=== PATIENT | female | born 1960 | race Caucasian/White ===

== ENCOUNTER 2024-12-13 13:15 | Inpatient (IN) | payer OTHER, SELFPAY ==
[2024-12-13] VITALS (41 sets, daily range): BP systolic 89–123; BP diastolic 50–81; PULSE 95–122; RESP 15–37; TEMP 36.3–37.3; O2SAT 93–99; BMI 25.0
--- NOTE | 2024-12-13 | PATH_ITS ---
[facility] Accession Number: [id number] No. of containers..01 Tissue . 01 Material submitted: . abdomen - INTRA ABDOMINAL OBJECT . 01 Diagnosis: SOFT TISSUE, INTRA-ABDOMINAL, BIOPSY: Nodular fragment of fibrous tissue with central necrosis and calcification. . Note: The changes could be secondary to prior local trauma and, in the proper clinical setting, could represent a necrotic traumatized lipoma. Clinicopathological correlation is advised. MRV 12/19/2024 1724 Local . 01 Comment: Evaluation is limited by the degree of tissue necrosis. . 01 Electronically signed: . Jeniffer Valencia MD, Dermatopathologist NPI- [id number] . 01 Gross description: . Received in formalin with two identifiers and intra-abdominal object, is a willis, smooth, rubbery soft tissue fragment 2.3 x 1.5 x 0.9 cm. Inked blue and sectioned to reveal an orange-willis to brown, gritty, friable cut surface. The specimen is submitted entirely in cassettes A1-A2. ([id number]) /FIDEL 12/15/2024 1045 Local . 01 Pathologist provided ICD-10: R23.9 . 01 CPT . 048676 Specimen Comment: A courtesy copy of this report has been sent to [phone] Performed at: [address] [facility] [address], [place], [place] [id number] MD Stevie Velasquez MD Phone: [phone]
--- NOTE | 2024-12-13 13:27 | EKG_ITS ---
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
[2024-12-13 13:43] LABS: Hematocrit 40.4 % (36-46); Hemoglobin 14.5 g/dL (12.0-16.0); Mean Corpuscular HGB Conc 35.8 % (30-36); Mean Corpuscular Hemoglobin 39.4 PG (26-34); Mean Corpuscular Volume 110.1 fL (80-100); Platelet Count 100 X10^3/uL (150-400)
[2024-12-13 13:46] LABS: Add Manual Diff / Slide Review YES
[2024-12-13 14:11] LABS: Band Neutrophils Percent 9.0 % (3-7); Lymphocytes Percent Manual 10.0 % (25-45); Metamyelocytes Percent 3.0 % (-0); Monocytes Percent Manual 11.0 % (2-11); Neutrophils Absolute Manual 3648 /uL (3000-5900); Segmented Neutrophils Percent 67.0 % (38-70); Total Cells Counted 100
[2024-12-13 14:12] LABS: Macrocytosis 2+
[2024-12-13 14:20] LABS: Lactate (Lactic Acid) 3.6 mmol/L (0.7-2.1)
[2024-12-13 15:08] LABS: Ethanol (ETOH) < 10 mg/dL (<10)
[2024-12-13 15:13] LABS: Alanine Aminotransferase 36 IU/L (<35); Albumin 2.7 g/dL (3.5-5.0); Albumin Globulin Ratio 1.0 (1.0-2.8); Alkaline Phosphatase 94 U/L (38-126); Blood Urea Nitrogen 44 mg/dL (7-17); Calcium 8.7 mg/dL (8.4-10.2); Carbon Dioxide 21 mmol/L (22-32); Chloride 94 mmol/L (98-107); Estimated Glomerular Filt Rate 37 mL/min (>60); Globulin 2.7 g/dL (1.7-4.1); Glucose 92 mg/dL (70-99); HEMOLYSIS 25 (0-50); Lipase 111 U/L (23-300); Potassium 4.3 mmol/L (3.4-5.1); Sodium 128 mmol/L (137-145); Total Protein 5.4 g/dL (6.3-8.2)
--- NOTE | 2024-12-13 15:32 | DI.CT.S_ITS ---
PROCEDURE: CT ABDOMEN PELVIS W CON INDICATIONS: probable appendicitis or perforated tic, RLQ pain, rebound TECHNIQUE: After the administration of intravenous contrast, axial sections acquired from the lung bases to the pubic symphysis. Coronal and sagittal reformats were performed. For radiation dose reduction, the following was used: automated exposure control, adjustment of mA and/or kV according to patient size. COMPARISON: None. FINDINGS: Image quality: Diagnostic. Lower Chest: Small right pleural effusion with right basilar dependent atelectasis. Mild left basilar atelectasis is also noted. Heart size is normal, no pericardial effusion. Mild fluid distended distal esophageal lumen is seen with mild esophageal wall thickening and small hiatal hernia. ABDOMEN: Liver: Severe hepatic steatosis with lobulated liver contour, no gross solid appearing hepatic lesion. Gallbladder: Distended gallbladder. Small calcified stone is seen. No gallbladder wall thickening. Biliary ducts: No biliary dilation. Pancreas: No ductal dilation. Spleen: Size is within normal limits. Adrenal Glands: No adrenal nodules. Kidneys and Ureters: No hydronephrosis. No solid mass. No complex renal cystic lesion which requires follow up. Stomach and Bowel: Significant distal gastric wall thickening and wall thickening involving proximal to mid duodenum with focal area of possible wall defect and extra luminal air involving proximal duodenum anterior wall series 2, image 48 concerning for perforated ulcer. No significant small bowel or colon wall thickening. No definite CT evidence of acute diverticulitis. No discrete drainable abscess collection. Peritoneum: Large amount of free fluid is seen in abdomen and pelvis. Moderate amount of free air is also seen most notably in non dependent portion of upper to mid abdomen. Ventral Wall: No significant ventral hernia. Abdominal Nodes: No retroperitoneal or mesenteric adenopathy by size criteria. Vessels: Aorta and inferior vena cava are normal in size. PELVIS: Pelvic Organs: Unremarkable. Bladder: No bladder wall thickening, accounting for underdistention. Pelvic Nodes: No enlarged lymph nodes. Miscellaneous: No inguinal hernias are seen. Bones: No aggressive osseous abnormality. IMPRESSION: 1. Large amount of abdominal and pelvic free fluid with significant free air as described above. 2. Significant distal gastric wall thickening and wall thickening involving proximal to mid duodenum with anterior proximal duodenal wall defect and adjacent air concerning for perforated duodenal ulcer. 3. No significant small bowel or colon wall thickening. Distal esophageal wall thickening concerning for mild esophagitis. 4. Severe hepatic steatosis, no discrete hepatic lesion. 5. Cholelithiasis without CT evidence of acute cholecystitis. 6. Small amount of right pleural effusion and right basilar atelectasis. Dictated by: Reuben Humphreys M.D. on 12/13/2024 at 16:08 Approved by: Reuben Humphreys M.D. on 12/13/2024 at 16:14
[2024-12-13] MEDS: PIPERACILLIN/TAZO 4.5 GM in SODIUM CHLORIDE 0.9% 100 ML IV (15:35)
--- NOTE | 2024-12-13 15:36 | PC.NURSE ---
Remaining fluids from medic bag given per MD verbal order. 1000cc infused
[2024-12-13 15:49] LABS: Reflexed Lactate in 2 Hours Y
[2024-12-13 16:38] LABS: Lactate 2HR (Lactic Acid Rflx) 1.9 mmol/L (0.7-2.1)
--- NOTE | 2024-12-13 17:58 | P.HP_ITS ---
History of Present Illness History of Present Illness Date Patient Seen: 12/13/24 Time Patient Seen: 17:58 Chief complaint: Abdominal pain Narrative: Arianna is a 64-year-old woman who presented to the emergency department due to abdominal pain since last . She has had bowel movements since then. A CT scan showed diffuse free fluid and free air and thickening of the distal stomach and duodenum. She has never had any abdominal surgery before. [facility] Social History household members: family Smoking Status: Never smoker Meds Home Medications and Allergies Allergies Allergy/AdvReac Type Severity Reaction Status Date / Time No Known Allergies Allergy Uncoded 08/26/17 12:58 Exam Vital Signs (past 8 hours): - 12/13/24 13:15 12/13/24 13:17 12/13/24 13:18 Temperature Pulse Rate 121 H 122 H Respiratory Rate 15 Blood Pressure 99/64 99/64 Pulse Oximetry 97 98 Oxygen Delivery Method Room Air 12/13/24 13:30 12/13/24 13:30 12/13/24 13:35 Temperature Pulse Rate 115 H Respiratory Rate Blood Pressure 97/66 89/64 L Pulse Oximetry 96 Oxygen Delivery Method 12/13/24 13:35 12/13/24 13:40 12/13/24 13:40 Temperature Pulse Rate 112 H 111 H Respiratory Rate 24 Blood Pressure 91/65 Pulse Oximetry 94 94 Oxygen Delivery Method 12/13/24 13:45 12/13/24 13:45 12/13/24 13:50 Temperature Pulse Rate 113 H Respiratory Rate 24 Blood Pressure 91/63 95/62 Pulse Oximetry 96 Oxygen Delivery Method 12/13/24 13:50 12/13/24 13:55 12/13/24 13:55 Temperature Pulse Rate 113 H 110 H Respiratory Rate 22 Blood Pressure 96/63 Pulse Oximetry 95 96 Oxygen Delivery Method 12/13/24 14:00 12/13/24 14:00 12/13/24 14:06 Temperature Pulse Rate 104 H 103 H Respiratory Rate 25 H Blood Pressure 96/57 L Pulse Oximetry 97 98 Oxygen Delivery Method 12/13/24 14:06 12/13/24 14:10 12/13/24 14:10 Temperature Pulse Rate 100 H Respiratory Rate 25 H Blood Pressure 98/56 L 105/64 Pulse Oximetry 99 Oxygen Delivery Method 12/13/24 14:15 12/13/24 14:15 12/13/24 14:20 Temperature Pulse Rate 101 H Respiratory Rate 23 Blood Pressure 111/58 L 107/56 L Pulse Oximetry 99 Oxygen Delivery Method 12/13/24 14:20 12/13/24 14:30 12/13/24 15:00 Temperature Pulse Rate 100 H 104 H 103 H Respiratory Rate 22 26 H Blood Pressure Pulse Oximetry 99 99 Oxygen Delivery Method 12/13/24 15:30 12/13/24 15:49 12/13/24 15:57 Temperature Pulse Rate 100 H 109 H Respiratory Rate 26 H 25 H Blood Pressure 123/58 L Pulse Oximetry 96 98 Oxygen Delivery Method 12/13/24 15:57 12/13/24 16:00 12/13/24 16:02 Temperature Pulse Rate 108 H 102 H Respiratory Rate 27 H Blood Pressure 107/53 L Pulse Oximetry 97 Oxygen Delivery Method 12/13/24 16:02 12/13/24 16:10 12/13/24 16:10 Temperature Pulse Rate 101 H 98 H Respiratory Rate 22 Blood Pressure 97/50 L Pulse Oximetry 96 95 Oxygen Delivery Method 12/13/24 16:20 12/13/24 16:20 12/13/24 16:30 Temperature Pulse Rate 99 H Respiratory Rate 25 H Blood Pressure 95/51 L 90/54 L Pulse Oximetry 96 Oxygen Delivery Method 12/13/24 16:30 12/13/24 16:40 12/13/24 16:40 Temperature Pulse Rate 95 H 109 H Respiratory Rate Blood Pressure 92/55 L Pulse Oximetry 96 96 Oxygen Delivery Method 12/13/24 16:50 12/13/24 16:50 12/13/24 17:00 Temperature Pulse Rate 107 H Respiratory Rate 28 H Blood Pressure 92/53 L 90/54 L Pulse Oximetry 95 Oxygen Delivery Method 12/13/24 17:00 12/13/24 17:20 12/13/24 17:20 Temperature 97.9 F Pulse Rate 99 H 111 H Respiratory Rate 27 H 30 H Blood Pressure 89/52 L Pulse Oximetry 95 97 Oxygen Delivery Method 12/13/24 17:30 12/13/24 17:30 Temperature Pulse Rate 105 H Respiratory Rate Blood Pressure 98/56 L Pulse Oximetry 97 Oxygen Delivery Method Oxygen Delivery Method Room Air Narrative Exam Narrative: Diffuse peritonitis Objective Labs 12/13/24 13:25 12/13/24 14:35 Labs: Laboratory Results - last 24 hr 12/13/24 12/13/24 12/13/24 13:25 14:35 16:15 WBC 4.8 RBC 3.67 L Hgb 14.5 Hct 40.4 MCV 110.1 H MCH 39.4 H MCHC 35.8 RDW 12.8 Plt Count 100 L Neut % (Auto) Not Reportable Lymph % (Auto) Not Reportable Piatt % (Auto) Not Reportable Eos % (Auto) Not Reportable Baso % (Auto) Not Reportable Lymph # (Auto) Not Reportable Piatt # (Auto) Not Reportable Baso # (Auto) Not Reportable Total Counted 100 Seg Neutrophils % 67.0 Band Neutrophils % 9.0 H Lymphocytes % (Manual) 10.0 L Monocytes % (Manual) 11.0 Metamyelocytes % 3.0 H Neutrophils # (Manual) 3648 RBC Morphology See below Macrocytosis 2+ H Sodium 128 L Potassium 4.3 Chloride 94 L Carbon Dioxide 21 L BUN 44 H Creatinine 1.57 H Estimated GFR 37 L BUN/Creatinine Ratio 28.0 H Glucose 92 Lactate 3.6 H 1.9 Calcium 8.7 Total Bilirubin 2.8 H AST 49 H ALT 36 H Alkaline Phosphatase 94 Total Protein 5.4 L Albumin 2.7 L Globulin 2.7 Albumin/Globulin Ratio 1.0 Lipase 111 Ethyl Alcohol < 10 Assessment & Plan Assessment and plan (1) Perforated viscus: Status: Acute Plan I explained to Arianna that she has free air and free fluid which indicates that she has a perforation in her GI tract somewhere. This could be from a perforated gastric or duodenal ulcer or a perforation in her colon or small bowel. I explained that she needs to have an exploratory laparotomy. If she has a perforation of the her colon she may need a diverting colostomy. If it is an ulcer she would likely need a Sonu patch. She would like to proceed. Time-Based Coding :: [TOTAL MINUTES] spent with patient and on the chart (including review of chart, obtaining history, exam, reviewing outside data, placing orders, documenting exam and treatment plan, and counseling patient) on [DATE]. PROFEE Team Physician Document charge(s): No
--- NOTE | 2024-12-13 18:03 | CM.IDA ---
Initial DCP Assessment Note Patient is 64 y/o female presents to ED due to concern for Abdominal pain, started last week. Patient's daughter encouraged patient to come to ED via EMS. It is reported that patient has been drinking listerine daily, has not seen PCP in a few years and patient presents as withdrawn and not caring for self. No current PCP, Patient has [facility] insurance. INSOLVENCY CONSULTANT enters room to meet with patient, present in room is patient's daughter Jeniffer. Patient and daughter reside together in [place]. Patient presents as A/Ox4 with flat affect. Patient endorses that she has been experiencing abdominal pain for the last week. Patient endorses limited mobility due to pain, patient denies any current DME. It is reported that patient is mostly independent with ADLs but there is concern that patient is not eating or drinking fluids appropriately. Patient does not drive and receives rides from daughter. Daughter reports that patient fell in April and received lift assist but did not want to come to the ED. Patient's daughter endorses concern that she will be out of town on Thursday and is concerned for patient returning home alone upon d/c. Daughter endorses preference for SNF rehab. Daughter states she needs to get patient a new bed because her current bed is too elevated for patient. Daughter endorses plan to work with a electrophysiology nurse practitioner to set up DPOA paperwork. INSOLVENCY CONSULTANT speaks with patient privately about listerine use. Patient endorses that she drinks a cup daily and states it calms me down, patient states that has been ingesting it for about a year, patient denies SI and denies intent to harm self. Upon CT scan results it is identified that patient has significant internal damage and perferated ulcer. INSOLVENCY CONSULTANT discusses concern that listerine use is causing harm to her body. Patient presents with flat affect and indicates understanding of this and identifies that she should stop drinking it. Patient's daughter endorses concern that patient has been withdrawn since the loss of her spouse 8 years ago and the loss of her mother in law who was more like a mother to her about 4 years ago. Patient denies concern for depression. Patient states she likes being alone and does not enjoy engaging with people. INSOLVENCY CONSULTANT offered to set up PCP appt for patient and patient declined at this time. INSOLVENCY CONSULTANT provided patient and daughter with list of DME resources. Patient was admitted by Dr. Issa for exploratory lap. Disposition pending at this time, patient going into surgery tonight. Plan: DCP to f/u with POC post surgery, patient would benefit from PT and Data Entry Email Processor consult, Patient in need of new PCP. GHASSAN De Guzman Discharge Planning/Care Management CM Discharge Assessment Start: 12/13/24 17:44 Freq: Status: Active Protocol: Document 12/13/24 18:00 LN (Rec: 12/13/24 18:03 LN [id number]) Discharge Planning Assessment Assigned Discharge GHASSAN Cameron Bending Frame Operator DPOA/Assigned Jeniffer/ Daughter Designee Name Contact Information [phone] Advance Directives? No Advance Directives No on File History Provided By Patient,Family Member Has Patient been No admitted in last 30 days? Prior Living House Arrangements Household Members children Type of Relies on Others transporation used prior to admit Needs Assistance Meal Prep,Home Chores / Shopping With Comment No DME used at this time but patient would benefit from DME, INSOLVENCY CONSULTANT provided DME resource list. Comment Patient's daughter has preference for SNF rehab, patient may be open to this. Patient does not have current PCP regarding HH. Review Status In Process
[2024-12-13] MEDS: LACTATED RINGERS 1,000 ML 42 ML IV ×3 (18:07→20:56)
[2024-12-13] MEDS: ACETAMINOPHEN IV 1,000 MG/100 ML VIAL 400 MG IV (18:37)
--- NOTE | 2024-12-13 18:55 | SUR.OPER ---
Supine on padded OR bed, head on pillow, arms secured on padded arm boards at <90 degrees abduction, legs uncrossed, safety belt at thigh.
[2024-12-13] MEDS: BUPIVACAINE 0.25% (PF) VIAL 30 ML INJ (19:03)
[2024-12-13] MEDS: BUPIVACAINE LIPOSOME 266 MG/20 ML VIAL INJ (19:42)
--- NOTE | 2024-12-13 20:09 | PM.OP.1 ---
Operative Date/Time/Diagnoses Date of procedure: 12/13/24 Time of procedure: 20:09 Pre-op diagnosis: Perforated viscus Post-op diagnosis: other (Perforated duodenal ulcer) Procedure & Clinicians Procedure: Exploratory laparotomy Peritoneal lavage Omental patch of perforated duodenal ulcer Same procedure(s) as scheduled: Yes Surgeon: Golden Issa Click Yes if Unassisted: Yes Anesthesia Type: General Operative Notes Findings: 6 mm perforation of the anterior first portion of the duodenum Applied: none Estimated Blood Loss (mL): 25 Procedure in detail: The patient is a 64-year-old woman who presented to the emergency department with a abdominal pain and was found to have free air and fluid. She was consented for an exploratory laparotomy. She had received Zosyn in the emergency department. The patient was brought to the operating room and general endotracheal anesthesia was induced. A Burnett catheter was placed. The abdomen was prepped and draped in the usual fashion. A time-out was performed. A midline incision was created from 3 finger breaths below the umbilicus to the xiphoid process. Voluminous dark bile was encountered upon entry to the abdomen and suctioned with a pool sucker. Exploration demonstrated a 6 mm round perforation along the anterior wall of the first portion of the duodenum. The LigaSure was used to create a omental tongue that would easily reach the ulcer. Two 3-0 silk sutures were placed in the healthy tissue alongside the perforation and tied over the tongue of omentum creating an omental patch. Next, two 19 round Reggie drains were brought in through separate lateral abdominal stab incisions and laid across the omental patch. Each drain was secured to the skin with a single 2-0 nylon stitch. We then irrigated the abdominal cavity with no less than 5 L of warm saline and suctioned the irrigant out until everything was clean. In the process of exploring the pelvis by hand to ensure there were no remaining pockets of bilious fluid 3-4 cm ovoid free-floating mass was discovered. This was sent as ?peritoneal object ?. The patient was noted to have slow diffuse oozing from the lumbar incisions so platelets were requested from [place] and FFP was ordered to be administered when available. We then injected some Exparel into the fascia and closed the fascia with a running 0 PDS suture reinforced by multiple interrupted 0 Vicryl internal retention sutures. The skin was closed with víctor. Dressings were applied. EBL: 25 mL Specimen: Intra-abdominal object Complications: none Post-operative Condition: stable Disposition: PACU
--- NOTE | 2024-12-13 20:32 | PC.NURSE ---
Unable to scan FFP due to emergency release of products.
[2024-12-13 21:01] LABS: INR 1.5 (0.9-1.3); Prothrombin Time 17.3 SECONDS (9.4-12.5)
--- NOTE | 2024-12-13 21:17 | PM.PN.EICU ---
Subjective Subjective IF CAMERA ACTIVATED, patient seen via real-time interactive audiovisual communication: Camera activated (Alert, oriented, no distress. On room air. ) Consent obtained for tele-psychiatry adult physician care: Yes Patient Location: ICU Provider location (State): [place] Other participants/roles: Patient, bedside RNs Interval history: Arianna is a 64-year-old woman who presented to the emergency department due to abdominal pain since last . She has had bowel movements since then. A CT scan showed diffuse free fluid and free air and thickening of the distal stomach and duodenum. Was taken to OR where she was found to have perforated duodenal ulcer. Underwent exploratory laparotomy, peritoneal lavage, and omental patch of perforated duodenal ulcer. Extubated in PACU. Arrives to ICU extubated and on room air. 2 ANTOINETTE drains,midline incision. Ms. Rodríguez states she is not on any home medications. Denies any heart or lung problems. States she does not smoke but does drink about a cup of listerine per day. At this time, no chest pain, no shortness of breath. Pain is under control. Requesting ice chips. Objective Imaging CT scan - abdomen: Radiologist's impression: IMPRESSION: 1. Large amount of abdominal and pelvic free fluid with significant free air as described above. 2. Significant distal gastric wall thickening and wall thickening involving proximal to mid duodenum with anterior proximal duodenal wall defect and adjacent air concerning for perforated duodenal ulcer. 3. No significant small bowel or colon wall thickening. Distal esophageal wall thickening concerning for mild esophagitis. 4. Severe hepatic steatosis, no discrete hepatic lesion. 5. Cholelithiasis without CT evidence of acute cholecystitis. 6. Small amount of right pleural effusion and right basilar atelectasis. Labs 12/13/24 13:25 12/13/24 14:35 Labs: Laboratory Results - last 24 hr 12/13/24 12/13/24 12/13/24 13:25 14:35 16:15 WBC 4.8 RBC 3.67 L Hgb 14.5 Hct 40.4 MCV 110.1 H MCH 39.4 H MCHC 35.8 RDW 12.8 Plt Count 100 L Neut % (Auto) Not Reportable Lymph % (Auto) Not Reportable [place] % (Auto) Not Reportable Eos % (Auto) Not Reportable Baso % (Auto) Not Reportable Lymph # (Auto) Not Reportable [place] # (Auto) Not Reportable Baso # (Auto) Not Reportable Total Counted 100 Seg Neutrophils % 67.0 Band Neutrophils % 9.0 H Lymphocytes % (Manual) 10.0 L Monocytes % (Manual) 11.0 Metamyelocytes % 3.0 H Neutrophils # (Manual) 3648 RBC Morphology See below Macrocytosis 2+ H PT INR Sodium 128 L Potassium 4.3 Chloride 94 L Carbon Dioxide 21 L BUN 44 H Creatinine 1.57 H Estimated GFR 37 L BUN/Creatinine Ratio 28.0 H Glucose 92 Lactate 3.6 H 1.9 Calcium 8.7 Total Bilirubin 2.8 H AST 49 H ALT 36 H Alkaline Phosphatase 94 Total Protein 5.4 L Albumin 2.7 L Globulin 2.7 Albumin/Globulin Ratio 1.0 Lipase 111 Ethyl Alcohol < 10 Blood Type Antibody Screen 12/13/24 12/13/24 19:14 20:35 WBC RBC Hgb Hct MCV MCH MCHC RDW Plt Count Neut % (Auto) Lymph % (Auto) [place] % (Auto) Eos % (Auto) Baso % (Auto) Lymph # (Auto) [place] # (Auto) Baso # (Auto) Total Counted Seg Neutrophils % Band Neutrophils % Lymphocytes % (Manual) Monocytes % (Manual) Metamyelocytes % Neutrophils # (Manual) RBC Morphology Macrocytosis PT 17.3 H INR 1.5 H Sodium Potassium Chloride Carbon Dioxide BUN Creatinine Estimated GFR BUN/Creatinine Ratio Glucose Lactate Calcium Total Bilirubin AST ALT Alkaline Phosphatase Total Protein Albumin Globulin Albumin/Globulin Ratio Lipase Ethyl Alcohol Blood Type B Negative Antibody Screen Negative Exam Vital Signs (past 8 hours): - 12/13/24 13:18 12/13/24 13:30 12/13/24 13:30 Temperature Pulse Rate 122 H 115 H Respiratory Rate Blood Pressure 97/66 Pulse Oximetry 98 96 Oxygen Delivery Method 12/13/24 13:35 12/13/24 13:35 12/13/24 13:40 Temperature Pulse Rate 112 H Respiratory Rate 24 Blood Pressure 89/64 L 91/65 Pulse Oximetry 94 Oxygen Delivery Method 12/13/24 13:40 12/13/24 13:45 12/13/24 13:45 Temperature Pulse Rate 111 H 113 H Respiratory Rate 24 Blood Pressure 91/63 Pulse Oximetry 94 96 Oxygen Delivery Method 12/13/24 13:50 12/13/24 13:50 12/13/24 13:55 Temperature Pulse Rate 113 H Respiratory Rate Blood Pressure 95/62 96/63 Pulse Oximetry 95 Oxygen Delivery Method 12/13/24 13:55 12/13/24 14:00 12/13/24 14:00 Temperature Pulse Rate 110 H 104 H Respiratory Rate 22 Blood Pressure 96/57 L Pulse Oximetry 96 97 Oxygen Delivery Method 12/13/24 14:06 12/13/24 14:06 12/13/24 14:10 Temperature Pulse Rate 103 H Respiratory Rate 25 H Blood Pressure 98/56 L 105/64 Pulse Oximetry 98 Oxygen Delivery Method 12/13/24 14:10 12/13/24 14:15 12/13/24 14:15 Temperature Pulse Rate 100 H 101 H Respiratory Rate 25 H 23 Blood Pressure 111/58 L Pulse Oximetry 99 99 Oxygen Delivery Method 12/13/24 14:20 12/13/24 14:20 12/13/24 14:30 Temperature Pulse Rate 100 H 104 H Respiratory Rate 22 Blood Pressure 107/56 L Pulse Oximetry 99 Oxygen Delivery Method 12/13/24 15:00 12/13/24 15:30 12/13/24 15:49 Temperature Pulse Rate 103 H 100 H 109 H Respiratory Rate 26 H 26 H 25 H Blood Pressure Pulse Oximetry 99 96 98 Oxygen Delivery Method 12/13/24 15:57 12/13/24 15:57 12/13/24 16:00 Temperature Pulse Rate 108 H 102 H Respiratory Rate 27 H Blood Pressure 123/58 L Pulse Oximetry 97 Oxygen Delivery Method 12/13/24 16:02 12/13/24 16:02 12/13/24 16:10 Temperature Pulse Rate 101 H 98 H Respiratory Rate 22 Blood Pressure 107/53 L Pulse Oximetry 96 95 Oxygen Delivery Method 12/13/24 16:10 12/13/24 16:20 12/13/24 16:20 Temperature Pulse Rate 99 H Respiratory Rate 25 H Blood Pressure 97/50 L 95/51 L Pulse Oximetry 96 Oxygen Delivery Method 12/13/24 16:30 12/13/24 16:30 12/13/24 16:40 Temperature Pulse Rate 95 H Respiratory Rate Blood Pressure 90/54 L 92/55 L Pulse Oximetry 96 Oxygen Delivery Method 12/13/24 16:40 12/13/24 16:50 12/13/24 16:50 Temperature Pulse Rate 109 H 107 H Respiratory Rate 28 H Blood Pressure 92/53 L Pulse Oximetry 96 95 Oxygen Delivery Method 12/13/24 17:00 12/13/24 17:00 12/13/24 17:20 Temperature 97.9 F Pulse Rate 99 H Respiratory Rate 27 H Blood Pressure 90/54 L 89/52 L Pulse Oximetry 95 Oxygen Delivery Method 12/13/24 17:20 12/13/24 17:30 12/13/24 17:30 Temperature Pulse Rate 111 H 105 H Respiratory Rate 30 H Blood Pressure 98/56 L Pulse Oximetry 97 97 Oxygen Delivery Method 12/13/24 18:07 12/13/24 20:15 12/13/24 20:24 Temperature 99.1 F 98 F Pulse Rate 105 H 105 H 101 H Respiratory Rate 20 25 H 33 H Blood Pressure 95/62 120/56 L 111/59 L Pulse Oximetry 97 93 95 Oxygen Delivery Method Room Air Room Air Room Air 12/13/24 20:30 12/13/24 20:31 12/13/24 20:35 Temperature 98 F 98.1 F Pulse Rate 99 H 100 H 100 H Respiratory Rate 37 H 33 H 35 H Blood Pressure 102/52 L 102/52 L 111/56 L Pulse Oximetry 94 Oxygen Delivery Method Room Air 12/13/24 20:40 12/13/24 20:45 12/13/24 20:51 Temperature 97.3 F L 97.8 F Pulse Rate 101 H 105 H 98 H Respiratory Rate 34 H 21 30 H Blood Pressure 110/57 L 112/64 109/60 Pulse Oximetry 98 Oxygen Delivery Method Room Air 12/13/24 20:58 Temperature Pulse Rate 96 H Respiratory Rate 18 Blood Pressure 118/81 Pulse Oximetry 98 Oxygen Delivery Method Room Air Oxygen Delivery Method Room Air Assessment & Plan Assessment & Plan narrative: 1. Perforated duodenal uler ---> s/p OR, ex lap with omental patch ---> Extubated in PACU ---> Continue zosyn 2. Drinks Listerine daily ---> Watch renal function, acid/base status ---> Given no significant metabolic acidosis, likely not toxic levels of flouride. DVTP - SCDs GIP - Protonix Diet - NPO Time-Based Coding :: [35] spent with patient and on the chart (including review of chart, obtaining history, exam, reviewing outside data, placing orders, documenting exam and treatment plan, and counseling patient) on [12/13/24].
--- NOTE | 2024-12-13 22:07 | ED.ABDPAIN ---
HPI - Abdominal Pain General Chief Complaint: Abdominal Pain Stated Complaint: Abdominal pain Time Seen by Provider: 12/13/24 14:16 Source: patient and EMS Mode of arrival: EMS History of Present Illness HPI narrative: This 64 yo female presents with the complaint of increasing lower abdominal pain over several hours. Said was out gardening and when came in , felt sudden pain in abdomen and didn't let up. Any movement bothered pain . Daughter brought patient in . Claims has been a long time since patient seen by a physician Not much PMH known. Related Data Home Medications ?Medication ?Instructions ?Recorded ?Confirmed acetaminophen 500 mg capsule 500 mg PO Q6H PRN pain 12/13/24 12/13/24 multivitamin (Daily Multi-Vitamin 1 tab PO DAILY 12/13/24 12/13/24 tablet) Allergies Allergy/AdvReac Type Severity Reaction Status Date / Time No Known Allergies Allergy Uncoded 08/26/17 12:58 Review of Systems Constitutional Constitutional: Reports weakness Comments: Malaise due to lower abdominal pain with diffuse guarding and rebound. ENT Ears, Nose, Mouth, and Throat: Reports as per HPI Cardiovascular Cardiovascular: Reports system reviewed and no additional complaints, except as documented Respiratory Respiratory: Reports system reviewed and no additional complaints, except as documented Gastrointestinal Comments: Diffuse lower abdominal pain .diffuse percussion tenderness and rebound. Hypoactive BS Musculoskeletal Comments: NROM of upper extremities.Guarded ROM of lower extremities due to tenderness created in abdomen Neurologic Neurologic: Reports weakness Patient History Social History household members: children alcohol intake: current Smoking Status: Never smoker Exam Initial Vital Signs Initial Vital Signs: Vital Signs Pulse Rate 121 H 12/13/24 13:15 Respiratory Rate 15 12/13/24 13:15 Blood Pressure 99/64 12/13/24 13:15 Pulse Oximetry 97 12/13/24 13:15 Oxygen Delivery Method Room Air 12/13/24 13:15 Const General: cooperative Nutritional Appearance: overweight Limitations: altered mental status Other: lethargic but can answer questions. HENMT HENMT Other: pale, mouth dry. Eyes Pupils: PERRL Neck Neck: full ROM Other: no tenderness Resp Other: Clear, slightly rapid shallow BS Cardio Rate: tachycardic Rhythm: regular rhythm GI Other: Diffuse RLQ tenderness with percussion tenderness and diffuse rebound , hypoactive BS. Neuro Other: Oriented times 3, no focal defects. Generally weak. Extrem Other: Guarded ROM of lower extremities due to tenderness caused in abdomen by any movement. Course Course Course Narrative: This patient presents with diffuse pelvic tenderness with guarding and diffuse rebound and percussion tenderness. Differential includes perforated appendix,perforated tic, mesenteric adenitis. bowel obstruction Was found onCT abdomen/pelvis to have a perforated duodenal ulcer with free fluid and free air. Patient had been hypotensive on presentation with BP 99 systolic. This increased to 106 with 2 liters NS. Was given dose of Zosyn because patient has acute abdomen. Dr. Issa surgeon environmental health safety manager notified and he said they were doing 3 hiop cases today and last would end about 18:30, 2 hours from time he was consulted. Said could be later,. Thought we should send patient to some facility that could take patient to surgery sooner,. Tried [facility] but as soon as they heard we had a surgeon said no they had other bigger cases pending,. Same for whose surgeon though we should not transfer when so hypotensive, Dr. Issa ended up taking to OR from ED and will admit to surgery. Orders Ordered: ED Orders 12/13/24 13:25 Complete Blood Count AUTO DIFF Stat Lactate (Lactic Acid) Stat 12/13/24 13:27 EKG-12 Lead Stat 12/13/24 14:35 Comprehensive Metabolic Panel Stat Ethanol (ETOH) Stat Lipase Stat 12/13/24 15:32 CT abdomen pelvis w con Stat 12/13/24 15:45 Blood Culture Stat Hydrocodone Bitart/Acetaminophen (Hydrocodone/Acet 5/325 Tablet) 1 tab PO Q4H PRN PRN Reason: Pain, Moderate (4-6) Hydrocodone Bitart/Acetaminophen (Hydrocodone/Acet 5/325 Tablet) 2 tab PO Q4H PRN PRN Reason: Pain, Severe (7-10) Hydromorphone HCl (Hydromorphone Hcl 0.5 Mg/0.5 Ml Syringe) 0.5 mg IV Q2H PRN PRN Reason: Pain, Severe (7-10) Lactated Ringer's (Lactated Ringers) 1,000 mls @ 120 mls/hr IV CONT ELIESER Ibuprofen (Ibuprofen 600 Mg Tablet) 600 mg PO Q6H PRN PRN Reason: Fever/Mild Pain (1-3) Naloxone HCl (Naloxone 0.4 Mg/Ml Vial) 0.2 mg IV Q2MIN PRN PRN Reason: Opiate Reversal Pantoprazole Sodium (Pantoprazole 40 Mg Vial) 40 mg IV DAILY ELIESER Discontinued Medications Benzocaine (Benzocaine/Menthol 1 Prashanth Pkt) 1 each PO PRN PRN PRN Reason: Sore Throat Bupivacaine HCl (Bupivacaine 0.25% (Pf) Vial) 30 ml INJ NOW ONE Stop: 12/13/24 19:04 Last Admin: 12/13/24 19:03 Dose: 15 ml Documented By: Bupivacaine Liposome (Bupivacaine Liposome 266 Mg/20 Ml Vial) 266 mg INJ NOW ONE Stop: 12/13/24 19:43 Last Admin: 12/13/24 19:42 Dose: 266 mg Documented By: Hydromorphone HCl (Hydromorphone 1 Mg Inj) 0 mg IV Q5MIN PRN PRN Reason: Pain, Mild (1-3) Hydromorphone HCl (Hydromorphone 1 Mg Inj) 0 mg IV Q5MIN PRN PRN Reason: Pain, Moderate (4-6) Piperacillin Sod/Tazobactam (Sod 4.5 gm/ Sodium Chloride) 100 mls @ 200 mls/hr IV NOW ONE Stop: 12/13/24 15:08 Last Infusion: 12/13/24 17:17 Dose: Infused Documented By: Admin: 12/13/24 15:35 Dose: 200 mls/hr Documented By: RENE Sodium Chloride (Normal Saline 0.9%) 500 mls @ 1,000 mls/hr IV BOLUS PRN PRN Reason: Fluid replacement Lactated Ringer's (Lactated Ringers) 1,000 mls @ 42 mls/hr IV CONT ELIESER Last Admin: 12/13/24 20:56 Dose: 42 mls/hr Documented By: Infusion: 12/13/24 20:56 Dose: Infused Documented By: Admin: 12/13/24 19:04 Dose: 42 mls/hr Documented By: Infusion: 12/13/24 19:04 Dose: Infused Documented By: Admin: 12/13/24 18:07 Dose: 42 mls/hr Documented By: KENDRA Acetaminophen (Ofirmev) 1,000 mg in 100 mls @ 400 mls/hr IV NOW ONE Stop: 12/13/24 19:16 Last Infusion: 12/13/24 21:33 Dose: Infused Documented By: Admin: 12/13/24 18:37 Dose: 400 mls/hr Documented By: TEX Lorazepam (Lorazepam 2 Mg/Ml Inj) 0.25 mg IV NOW PRN PRN Reason: Anxiety Ondansetron HCl (Ondansetron 4 Mg/2 Ml Inj) 4 mg IV NOW PRN PRN Reason: Nausea And Vomiting Ondansetron HCl (Ondansetron 4 Mg Odt) 4 mg PO NOW PRN PRN Reason: Nausea And Vomiting Vital Signs Vital signs: Vital Signs - 8 hr 12/13/24 14:10 12/13/24 14:10 12/13/24 14:15 Temperature Pulse Rate 100 H Respiratory Rate 25 H Blood Pressure 105/64 111/58 L Pulse Oximetry 99 12/13/24 14:15 12/13/24 14:20 12/13/24 14:20 Temperature Pulse Rate 101 H 100 H Respiratory Rate 23 Blood Pressure 107/56 L Pulse Oximetry 99 99 12/13/24 14:30 12/13/24 15:00 12/13/24 15:30 Temperature Pulse Rate 104 H 103 H 100 H Respiratory Rate 22 26 H 26 H Blood Pressure Pulse Oximetry 99 96 12/13/24 15:49 12/13/24 15:57 12/13/24 15:57 Temperature Pulse Rate 109 H 108 H Respiratory Rate 25 H 27 H Blood Pressure 123/58 L Pulse Oximetry 98 12/13/24 16:00 12/13/24 16:02 12/13/24 16:02 Temperature Pulse Rate 102 H 101 H Respiratory Rate 22 Blood Pressure 107/53 L Pulse Oximetry 97 96 12/13/24 16:10 12/13/24 16:10 12/13/24 16:20 Temperature Pulse Rate 98 H 99 H Respiratory Rate 25 H Blood Pressure 97/50 L Pulse Oximetry 95 96 12/13/24 16:20 12/13/24 16:30 12/13/24 16:30 Temperature Pulse Rate 95 H Respiratory Rate Blood Pressure 95/51 L 90/54 L Pulse Oximetry 96 12/13/24 16:40 12/13/24 16:40 12/13/24 16:50 Temperature Pulse Rate 109 H 107 H Respiratory Rate 28 H Blood Pressure 92/55 L Pulse Oximetry 96 95 12/13/24 16:50 12/13/24 17:00 12/13/24 17:00 Temperature 97.9 F Pulse Rate 99 H Respiratory Rate 27 H Blood Pressure 92/53 L 90/54 L Pulse Oximetry 95 12/13/24 17:20 12/13/24 17:20 Temperature Pulse Rate 111 H Respiratory Rate 30 H Blood Pressure 89/52 L Pulse Oximetry 97 MDM - Abdominal Pain Lab Data Attestation: I reviewed the patient's lab results. Lab results narrative: lab did not reveal an elevated WBC but did reveal an elevated lactic. 12/13/24 13:25 12/13/24 14:35 Labs: Lab Results 12/13/24 12/13/24 12/13/24 Range/Units 13:25 14:35 16:15 WBC 4.8 (4.5-11.0) X10^3/uL RBC 3.67 L (4.0-5.2) X10^6/uL Hgb 14.5 (12.0-16.0) g/dL Hct 40.4 (36-46) % MCV 110.1 H (80-100) fL MCH 39.4 H (26-34) PG MCHC 35.8 (30-36) % RDW 12.8 (11.6-14.8) % Plt Count 100 L (150-400) X10^3/uL Neut % (Auto) Not Reportable Lymph % (Auto) Not Reportable [place] % (Auto) Not Reportable Eos % (Auto) Not Reportable Baso % (Auto) Not Reportable Lymph # (Auto) Not Reportable [place] # (Auto) Not Reportable Baso # (Auto) Not Reportable Total Counted 100 Seg Neutrophils % 67.0 (38-70) % Band Neutrophils % 9.0 H (3-7) % Lymphocytes % (Manual) 10.0 L (25-45) % Monocytes % (Manual) 11.0 (2-11) % Metamyelocytes % 3.0 H (-0) % Neutrophils # (Manual) 3648 (1980-9383) /uL RBC Morphology See below Macrocytosis 2+ H Sodium 128 L (137-145) mmol/L Potassium 4.3 (3.4-5.1) mmol/L Chloride 94 L (98-107) mmol/L Carbon Dioxide 21 L (22-32) mmol/L BUN 44 H (7-17) mg/dL Creatinine 1.57 H (0.52-1.04) mg/dL Estimated GFR 37 L (>60) mL/min BUN/Creatinine Ratio 28.0 H (6-22) Glucose 92 (70-99) mg/dL Lactate 3.6 H 1.9 (0.7-2.1) mmol/L Calcium 8.7 (8.4-10.2) mg/dL Total Bilirubin 2.8 H (0.2-1.3) mg/dL AST 49 H (14-36) IU/L ALT 36 H (<35) IU/L Alkaline Phosphatase 94 (38-126) U/L Total Protein 5.4 L (6.3-8.2) g/dL Albumin 2.7 L (3.5-5.0) g/dL Globulin 2.7 (1.7-4.1) g/dL Albumin/Globulin Ratio 1.0 (1.0-2.8) Lipase 111 (23-300) U/L Ethyl Alcohol < 10 (<10) mg/dL Discharge Plan Departure Patient Disposition: Admitted to Surgery Clinical Impression: Duodenal ulcer, perforated Admit Date/Time: 12/13/24 17:28 Admit Provider: Golden Issa
[2024-12-13 22:23] LABS: INR 1.5 (0.9-1.3); Prothrombin Time 16.6 SECONDS (9.4-12.5)
[2024-12-13 22:55] LABS: MRSA (Nasal) PCR NOT DETECTED (Not Detect)
[2024-12-14] VITALS (100 sets, daily range): BP systolic 75–119; BP diastolic 41–73; PULSE 70–111; RESP 12–35; TEMP 36.1–36.6; O2SAT 93–100
[2024-12-14] MEDS: LACTATED RINGERS 1,000 ML 1000 ML IV (00:45)
[2024-12-14] MEDS: PIPERACILLIN/TAZO 3.375 GM in SODIUM CHLORIDE 0.9% 100 ML IV ×3 (01:26→17:00)
[2024-12-14] MEDS: LACTATED RINGERS 1,000 ML 120 ML IV ×2 (02:23→06:49)
[2024-12-14] MEDS: LACTATED RINGERS 500 ML 1000 ML IV (02:56)
[2024-12-14] MEDS: ALBUMIN HUMAN 12.5 GM/250 ML VIAL IV (03:05)
[2024-12-14] MEDS: NOREPINEPHRINE BITARTRATE/D5W 4 MG/250 ML PLAST..BAG 27.113 MG IV (05:50)
[2024-12-14 05:53] LABS: Add Manual Diff / Slide Review NO; Hematocrit 27.2 % (36-46); Hemoglobin 9.9 g/dL (12.0-16.0); Lymphocytes Absolute Auto 200 /uL (1100-4500); Mean Corpuscular HGB Conc 36.5 % (30-36); Mean Corpuscular Hemoglobin 40.3 PG (26-34); Mean Corpuscular Volume 110.5 fL (80-100); Platelet Count 55 X10^3/uL (150-400)
[2024-12-14 06:01] LABS: Alanine Aminotransferase 24 IU/L (<35); Albumin 2.1 g/dL (3.5-5.0); Albumin Globulin Ratio 1.0 (1.0-2.8); Alkaline Phosphatase 64 U/L (38-126); Blood Urea Nitrogen 38 mg/dL (7-17); Calcium 7.7 mg/dL (8.4-10.2); Carbon Dioxide 25 mmol/L (22-32); Chloride 99 mmol/L (98-107); Estimated Glomerular Filt Rate 56 mL/min (>60); Globulin 2.2 g/dL (1.7-4.1); Glucose 98 mg/dL (70-99); HEMOLYSIS < 15 (0-50); Magnesium 1.6 mg/dL (1.6-2.3); Potassium 2.9 mmol/L (3.4-5.1); Sodium 130 mmol/L (137-145); Total Protein 4.3 g/dL (6.3-8.2)
[2024-12-14] MEDS: MICAFUNGIN 100 MG in SODIUM CHLORIDE 0.9% 100 ML IV (07:07)
--- NOTE | 2024-12-14 07:35 | PC.NURSE ---
[facility] Assistant Summary-Patient was brought to ICU room 227 at 211. Awake, oriented x3, able to answer admit questions. Denied pain or nausea. NPO. Abdominal drsg CDI. ANTOINETTE drains compressed and patent, Lt put out 130ml sang fluid, Rt 40ml. Platelets infused without reaction. BP started trending down-see vitals, low UOP, Tele-Membership Coordinator notified at 0035, liter LR bolus ordered and infused, Zosyn started. Bolus was effective on BP for only a short time, UOP did increase. Notified Tele-I again at 0245, order received for another 500ml LR bolus and albumin, infused without much effect. Tele-I notified again at 0537, Levophed ordered and started at 0.1mcg/kg/min, titrated up to 0.15mcgmin by change of shift. Patient was drowsy, but would wake to voice, could state place and situation. Always remained SR, afebrile, placed on 1L NC while sleeping for brief apnea. Total 750ml UOP.
[2024-12-14 08:07] LABS: Anisocytosis 1+
[2024-12-14 08:08] LABS: Macrocytosis 1+
[2024-12-14] MEDS: POTASSIUM CHLORIDE IN WATER 10 MEQ/100 ML PIGGYBACK 100 MEQ IV ×8 (08:21→20:19)
[2024-12-14] MEDS: PANTOPRAZOLE 40 MG VIAL IV (08:21)
[2024-12-14] MEDS: MAGNESIUM SULFATE 2 GM/50 ML PIGGYBACK IV (08:21)
--- NOTE | 2024-12-14 08:58 | PM.PN.IH.1 ---
Subjective Subjective Date Patient Seen: 12/14/24 Time Patient Seen: 08:58 Interval history: Requiring a small amount of Levophed overnight for hypertension She wants to advance her diet Exam Vital Signs (past 8 hours): - 12/14/24 01:08 12/14/24 01:15 12/14/24 01:15 Temperature Pulse Rate 85 87 Respiratory Rate 28 H 18 Blood Pressure 84/50 L Pulse Oximetry 96 96 Oxygen Delivery Method 12/14/24 01:30 12/14/24 01:30 12/14/24 01:45 Temperature Pulse Rate 87 Respiratory Rate 18 Blood Pressure 84/51 L 84/52 L Pulse Oximetry 95 Oxygen Delivery Method 12/14/24 01:45 12/14/24 02:00 12/14/24 02:00 Temperature Pulse Rate 90 Respiratory Rate 18 Blood Pressure 93/55 L Pulse Oximetry 93 Oxygen Delivery Method Nasal Cannula 12/14/24 02:00 12/14/24 02:15 12/14/24 02:15 Temperature Pulse Rate 86 83 Respiratory Rate 17 16 Blood Pressure 87/53 L Pulse Oximetry 100 100 Oxygen Delivery Method 12/14/24 02:30 12/14/24 02:30 12/14/24 02:39 Temperature Pulse Rate 81 Respiratory Rate 17 Blood Pressure 78/49 L 80/48 L Pulse Oximetry 100 Oxygen Delivery Method 12/14/24 02:39 12/14/24 02:45 12/14/24 02:45 Temperature Pulse Rate 82 82 Respiratory Rate 17 16 Blood Pressure 80/48 L Pulse Oximetry 100 100 Oxygen Delivery Method 12/14/24 03:00 12/14/24 03:00 12/14/24 03:15 Temperature Pulse Rate 80 Respiratory Rate 18 Blood Pressure 81/52 L 87/54 L Pulse Oximetry 100 Oxygen Delivery Method 12/14/24 03:15 12/14/24 03:30 12/14/24 03:30 Temperature Pulse Rate 78 85 Respiratory Rate 20 17 Blood Pressure 97/57 L Pulse Oximetry 100 98 Oxygen Delivery Method 12/14/24 03:45 12/14/24 03:45 12/14/24 04:00 Temperature Pulse Rate 80 Respiratory Rate 17 Blood Pressure 92/52 L 85/54 L Pulse Oximetry 99 Oxygen Delivery Method 12/14/24 04:00 12/14/24 04:15 12/14/24 04:15 Temperature Pulse Rate 80 82 Respiratory Rate 19 16 Blood Pressure 82/52 L Pulse Oximetry 98 98 Oxygen Delivery Method 12/14/24 04:30 12/14/24 04:30 12/14/24 04:45 Temperature Pulse Rate 81 81 Respiratory Rate 18 17 Blood Pressure 84/51 L Pulse Oximetry 98 98 Oxygen Delivery Method 12/14/24 04:45 12/14/24 05:00 12/14/24 05:00 Temperature Pulse Rate 84 Respiratory Rate 18 Blood Pressure 87/52 L 81/52 L Pulse Oximetry 98 Oxygen Delivery Method 12/14/24 05:15 12/14/24 05:15 12/14/24 05:20 Temperature Pulse Rate 83 Respiratory Rate 17 Blood Pressure 76/50 L 80/50 L Pulse Oximetry 98 Oxygen Delivery Method 12/14/24 05:20 12/14/24 05:23 12/14/24 05:23 Temperature Pulse Rate 80 79 Respiratory Rate 16 17 Blood Pressure 85/47 L Pulse Oximetry 98 98 Oxygen Delivery Method 12/14/24 05:30 12/14/24 05:30 12/14/24 05:35 Temperature Pulse Rate 79 Respiratory Rate 16 Blood Pressure 78/41 L 75/49 L Pulse Oximetry 98 Oxygen Delivery Method 12/14/24 05:35 12/14/24 05:45 12/14/24 05:45 Temperature Pulse Rate 80 79 Respiratory Rate 16 16 Blood Pressure 76/48 L Pulse Oximetry 97 97 Oxygen Delivery Method 12/14/24 06:00 12/14/24 06:00 12/14/24 06:05 Temperature Pulse Rate 81 Respiratory Rate 19 Blood Pressure 97/54 L 111/62 Pulse Oximetry 96 Oxygen Delivery Method 12/14/24 06:05 12/14/24 06:15 12/14/24 06:15 Temperature Pulse Rate 77 79 Respiratory Rate 20 20 Blood Pressure 93/52 L Pulse Oximetry 97 98 Oxygen Delivery Method 12/14/24 06:30 12/14/24 06:30 12/14/24 06:45 Temperature Pulse Rate 78 Respiratory Rate 17 Blood Pressure 95/53 L 102/56 L Pulse Oximetry 99 Oxygen Delivery Method 12/14/24 06:45 12/14/24 07:00 12/14/24 07:00 Temperature 96.9 F L Pulse Rate 76 Respiratory Rate 18 Blood Pressure 101/59 L Pulse Oximetry 96 Oxygen Delivery Method 12/14/24 07:00 12/14/24 07:15 12/14/24 07:15 Temperature Pulse Rate 86 82 Respiratory Rate 17 16 Blood Pressure 103/58 L Pulse Oximetry 98 98 Oxygen Delivery Method 12/14/24 07:30 12/14/24 07:30 12/14/24 07:45 Temperature Pulse Rate 79 Respiratory Rate 17 Blood Pressure 100/57 L 107/57 L Pulse Oximetry 98 Oxygen Delivery Method 12/14/24 07:45 12/14/24 08:00 12/14/24 08:00 Temperature Pulse Rate 81 77 Respiratory Rate 16 18 Blood Pressure 110/56 L Pulse Oximetry 98 98 Oxygen Delivery Method 12/14/24 08:15 12/14/24 08:15 12/14/24 08:30 Temperature Pulse Rate 78 Respiratory Rate 17 Blood Pressure 112/57 L 107/53 L Pulse Oximetry 98 Oxygen Delivery Method 12/14/24 08:30 Temperature Pulse Rate 80 Respiratory Rate 18 Blood Pressure Pulse Oximetry 98 Oxygen Delivery Method Oxygen Delivery Method Nasal Cannula Narrative Exam Narrative: Abdomen is soft Drains with serous output Objective Labs 12/14/24 04:22 12/14/24 04:22 Labs: Laboratory Results - last 24 hr 12/13/24 12/13/24 12/13/24 13:25 14:35 16:15 WBC 4.8 RBC 3.67 L Hgb 14.5 Hct 40.4 MCV 110.1 H MCH 39.4 H MCHC 35.8 RDW 12.8 Plt Count 100 L Neut % (Auto) Not Reportable Lymph % (Auto) Not Reportable [place] % (Auto) Not Reportable Eos % (Auto) Not Reportable Baso % (Auto) Not Reportable Neut # (Auto) Lymph # (Auto) Not Reportable [place] # (Auto) Not Reportable Eos # (Auto) Baso # (Auto) Not Reportable Total Counted 100 Seg Neutrophils % 67.0 Band Neutrophils % 9.0 H Lymphocytes % (Manual) 10.0 L Monocytes % (Manual) 11.0 Metamyelocytes % 3.0 H Neutrophils # (Manual) 3648 RBC Morphology See below Anisocytosis Macrocytosis 2+ H PT INR Sodium 128 L Potassium 4.3 Chloride 94 L Carbon Dioxide 21 L BUN 44 H Creatinine 1.57 H Estimated GFR 37 L BUN/Creatinine Ratio 28.0 H Glucose 92 Lactate 3.6 H 1.9 Calcium 8.7 Magnesium Total Bilirubin 2.8 H AST 49 H ALT 36 H Alkaline Phosphatase 94 Total Protein 5.4 L Albumin 2.7 L Globulin 2.7 Albumin/Globulin Ratio 1.0 Lipase 111 Nasal Screen MRSA (PCR) Ethyl Alcohol < 10 Blood Type Antibody Screen 12/13/24 12/13/24 12/13/24 19:14 20:35 21:30 WBC RBC Hgb Hct MCV MCH MCHC RDW Plt Count Neut % (Auto) Lymph % (Auto) [place] % (Auto) Eos % (Auto) Baso % (Auto) Neut # (Auto) Lymph # (Auto) [place] # (Auto) Eos # (Auto) Baso # (Auto) Total Counted Seg Neutrophils % Band Neutrophils % Lymphocytes % (Manual) Monocytes % (Manual) Metamyelocytes % Neutrophils # (Manual) RBC Morphology Anisocytosis Macrocytosis PT 17.3 H INR 1.5 H Sodium Potassium Chloride Carbon Dioxide BUN Creatinine Estimated GFR BUN/Creatinine Ratio Glucose Lactate Calcium Magnesium Total Bilirubin AST ALT Alkaline Phosphatase Total Protein Albumin Globulin Albumin/Globulin Ratio Lipase Nasal Screen MRSA (PCR) Not detected Ethyl Alcohol Blood Type B Negative Antibody Screen Negative 12/13/24 12/14/24 22:03 04:22 WBC 4.4 L RBC 2.46 L Hgb 9.9 L Hct 27.2 L MCV 110.5 H MCH 40.3 H MCHC 36.5 H RDW 12.7 Plt Count 55 L Neut % (Auto) 86.7 H Lymph % (Auto) 4.2 L [place] % (Auto) 8.8 Eos % (Auto) 0.1 L Baso % (Auto) 0.2 Neut # (Auto) 3900 Lymph # (Auto) 200 L [place] # (Auto) 400 Eos # (Auto) 0 Baso # (Auto) 0 Total Counted Seg Neutrophils % Band Neutrophils % Lymphocytes % (Manual) Monocytes % (Manual) Metamyelocytes % Neutrophils # (Manual) RBC Morphology See below Anisocytosis 1+ H Macrocytosis 1+ H PT 16.6 H INR 1.5 H Sodium 130 L Potassium 2.9 L D Chloride 99 Carbon Dioxide 25 BUN 38 H Creatinine 1.12 H Estimated GFR 56 L BUN/Creatinine Ratio 33.9 H Glucose 98 Lactate Calcium 7.7 L Magnesium 1.6 Total Bilirubin 2.1 H AST 51 H ALT 24 Alkaline Phosphatase 64 Total Protein 4.3 L Albumin 2.1 L Globulin 2.2 Albumin/Globulin Ratio 1.0 Lipase Nasal Screen MRSA (PCR) Ethyl Alcohol Blood Type Antibody Screen PFSH Social History household members: children Smoking Status: Never smoker alcohol intake: current Assessment & Plan Assessment and plan (1) Duodenal ulcer, perforated: Status: Acute Plan DC [place] Continue with ice chips today and monitor drain output for bile Time-Based Coding :: [TOTAL MINUTES] spent with patient and on the chart (including review of chart, obtaining history, exam, reviewing outside data, placing orders, documenting exam and treatment plan, and counseling patient) on [DATE]. Quality VTE Deep Vein Thrombosis/Pulmonary Embolism Present on Admission: No IH PROFEE Wire Stripper Document charge(s): No
[2024-12-14] MEDS: SODIUM CHLORIDE 0.9% FLUSH 10 ML IV ×2 (09:29→20:37)
--- NOTE | 2024-12-14 10:35 | P.TELICUPN_ITS ---
Subjective Subjective IF CAMERA ACTIVATED, patient seen via real-time interactive audiovisual communication: Camera activated Consent obtained for tele-professor of mathematics care: Yes Patient Location: ICU Provider location (State): Other participants/roles: RN Interval history: Pt on 1 L of [place], started on levo for septic shock after receiving multiple fluid boluses + 5 L, levo at 0.12 mcg/kg/min, UOP about 100 ml//hr, Cr improving , added micafungin given the upper GI perf, HB dropped 14-->9,part of it could be dilutional, pending repeat CBC. 1. Perforated duodenal uler ---> s/p OR, ex lap with omental patch ---> Continue zosyn, added micafungin 2. HERBIE - reduce IV fluid to LR 75 ml/hr - Trend BMP 3. Anemia - Acute blood loss + dilutional - Trend BMP DVTP - SCDs GIP - Protonix Diet - NPO Time-Based Coding :: [30] spent with patient and on the chart (including review of chart, obtaining history, exam, reviewing outside data, placing orders, documenting exam and treatment plan, and counseling patient Current Medications Current Medications Medications: Home Medications acetaminophen 500 mg capsule 500 mg PO Q6H PRN pain 12/13/24 [History Confirmed 12/13/24] multivitamin (Daily Multi-Vitamin tablet) 1 tab PO DAILY 12/13/24 [History Confirmed 12/13/24] Visit Medications (administered) Generic Name Dose Route Start Last Admin Trade Name Freq PRN Reason Stop Dose Admin Lactated Ringer's 1,000 mls @ 75 mls/hr 12/13/24 21:16 12/14/24 06:49 Lactated Ringers IV 120 mls/hr CONT ELIESER Administration Piperacillin Sod/Tazobactam 100 mls @ 25 mls/hr 12/14/24 01:00 12/14/24 08:20 Sod 3.375 gm/ Sodium Chloride IV 25 mls/hr Q8H ELIESER Administration NOREPINEPHRINE BITARTRATE/D5W 4 mg in 250 mls @ 27.113 mls/hr 12/14/24 05:44 12/14/24 08:41 Levophed IV 0.12 mcg/kg/min TITRATE ELIESER 32.535 mls/hr Protocol Titration 0.1 MCG/KG/MIN Micafungin Sodium 100 mg/ 100 mls @ 100 mls/hr 12/14/24 06:00 12/14/24 08:07 Sodium Chloride IV Infused Q24H ELIESER Infusion POTASSIUM CHLORIDE IN WATER 10 meq in 100 mls @ 100 mls/hr 12/14/24 08:00 12/14/24 09:28 Potassium Cl 10 Meq/100 Ml Marta IV 12/14/24 11:59 100 mls/hr Q1H ELIESER Administration Pantoprazole Sodium 40 mg 12/14/24 09:00 12/14/24 08:21 Pantoprazole 40 Mg Vial IV 40 mg DAILY ELIESER Administration Sodium Chloride 10 ml 12/14/24 09:00 12/14/24 09:29 Sodium Chloride 0.9% Flush IV 10 ml BID ELIESER Administration Objective Labs 12/14/24 04:22 12/14/24 04:22 Labs: Laboratory Results - last 24 hr 12/13/24 12/13/24 12/13/24 13:25 14:35 16:15 WBC 4.8 RBC 3.67 L Hgb 14.5 Hct 40.4 MCV 110.1 H MCH 39.4 H MCHC 35.8 RDW 12.8 Plt Count 100 L Neut % (Auto) Not Reportable Lymph % (Auto) Not Reportable [place] % (Auto) Not Reportable Eos % (Auto) Not Reportable Baso % (Auto) Not Reportable Neut # (Auto) Lymph # (Auto) Not Reportable [place] # (Auto) Not Reportable Eos # (Auto) Baso # (Auto) Not Reportable Total Counted 100 Seg Neutrophils % 67.0 Band Neutrophils % 9.0 H Lymphocytes % (Manual) 10.0 L Monocytes % (Manual) 11.0 Metamyelocytes % 3.0 H Neutrophils # (Manual) 3648 RBC Morphology See below Anisocytosis Macrocytosis 2+ H PT INR Sodium 128 L Potassium 4.3 Chloride 94 L Carbon Dioxide 21 L BUN 44 H Creatinine 1.57 H Estimated GFR 37 L BUN/Creatinine Ratio 28.0 H Glucose 92 Lactate 3.6 H 1.9 Calcium 8.7 Magnesium Total Bilirubin 2.8 H AST 49 H ALT 36 H Alkaline Phosphatase 94 Total Protein 5.4 L Albumin 2.7 L Globulin 2.7 Albumin/Globulin Ratio 1.0 Lipase 111 Nasal Screen MRSA (PCR) Ethyl Alcohol < 10 Blood Type Antibody Screen 12/13/24 12/13/24 12/13/24 19:14 20:35 21:30 WBC RBC Hgb Hct MCV MCH MCHC RDW Plt Count Neut % (Auto) Lymph % (Auto) [place] % (Auto) Eos % (Auto) Baso % (Auto) Neut # (Auto) Lymph # (Auto) [place] # (Auto) Eos # (Auto) Baso # (Auto) Total Counted Seg Neutrophils % Band Neutrophils % Lymphocytes % (Manual) Monocytes % (Manual) Metamyelocytes % Neutrophils # (Manual) RBC Morphology Anisocytosis Macrocytosis PT 17.3 H INR 1.5 H Sodium Potassium Chloride Carbon Dioxide BUN Creatinine Estimated GFR BUN/Creatinine Ratio Glucose Lactate Calcium Magnesium Total Bilirubin AST ALT Alkaline Phosphatase Total Protein Albumin Globulin Albumin/Globulin Ratio Lipase Nasal Screen MRSA (PCR) Not detected Ethyl Alcohol Blood Type B Negative Antibody Screen Negative 12/13/24 12/14/24 22:03 04:22 WBC 4.4 L RBC 2.46 L Hgb 9.9 L Hct 27.2 L MCV 110.5 H MCH 40.3 H MCHC 36.5 H RDW 12.7 Plt Count 55 L Neut % (Auto) 86.7 H Lymph % (Auto) 4.2 L [place] % (Auto) 8.8 Eos % (Auto) 0.1 L Baso % (Auto) 0.2 Neut # (Auto) 3900 Lymph # (Auto) 200 L [place] # (Auto) 400 Eos # (Auto) 0 Baso # (Auto) 0 Total Counted Seg Neutrophils % Band Neutrophils % Lymphocytes % (Manual) Monocytes % (Manual) Metamyelocytes % Neutrophils # (Manual) RBC Morphology See below Anisocytosis 1+ H Macrocytosis 1+ H PT 16.6 H INR 1.5 H Sodium 130 L Potassium 2.9 L D Chloride 99 Carbon Dioxide 25 BUN 38 H Creatinine 1.12 H Estimated GFR 56 L BUN/Creatinine Ratio 33.9 H Glucose 98 Lactate Calcium 7.7 L Magnesium 1.6 Total Bilirubin 2.1 H AST 51 H ALT 24 Alkaline Phosphatase 64 Total Protein 4.3 L Albumin 2.1 L Globulin 2.2 Albumin/Globulin Ratio 1.0 Lipase Nasal Screen MRSA (PCR) Ethyl Alcohol Blood Type Antibody Screen Exam Vital Signs (past 8 hours): - 12/14/24 02:39 12/14/24 02:39 12/14/24 02:45 Temperature Pulse Rate 82 Respiratory Rate 17 Blood Pressure 80/48 L 80/48 L Pulse Oximetry 100 Oxygen Delivery Method 12/14/24 02:45 12/14/24 03:00 12/14/24 03:00 Temperature Pulse Rate 82 80 Respiratory Rate 16 18 Blood Pressure 81/52 L Pulse Oximetry 100 100 Oxygen Delivery Method 12/14/24 03:15 12/14/24 03:15 12/14/24 03:30 Temperature Pulse Rate 78 Respiratory Rate 20 Blood Pressure 87/54 L 97/57 L Pulse Oximetry 100 Oxygen Delivery Method 12/14/24 03:30 12/14/24 03:45 12/14/24 03:45 Temperature Pulse Rate 85 80 Respiratory Rate 17 17 Blood Pressure 92/52 L Pulse Oximetry 98 99 Oxygen Delivery Method 12/14/24 04:00 12/14/24 04:00 12/14/24 04:15 Temperature Pulse Rate 80 Respiratory Rate 19 Blood Pressure 85/54 L 82/52 L Pulse Oximetry 98 Oxygen Delivery Method 12/14/24 04:15 12/14/24 04:30 12/14/24 04:30 Temperature Pulse Rate 82 81 Respiratory Rate 16 18 Blood Pressure 84/51 L Pulse Oximetry 98 98 Oxygen Delivery Method 12/14/24 04:45 12/14/24 04:45 12/14/24 05:00 Temperature Pulse Rate 81 84 Respiratory Rate 17 18 Blood Pressure 87/52 L Pulse Oximetry 98 98 Oxygen Delivery Method 12/14/24 05:00 12/14/24 05:15 12/14/24 05:15 Temperature Pulse Rate 83 Respiratory Rate 17 Blood Pressure 81/52 L 76/50 L Pulse Oximetry 98 Oxygen Delivery Method 12/14/24 05:20 12/14/24 05:20 12/14/24 05:23 Temperature Pulse Rate 80 79 Respiratory Rate 16 17 Blood Pressure 80/50 L Pulse Oximetry 98 98 Oxygen Delivery Method 12/14/24 05:23 12/14/24 05:30 12/14/24 05:30 Temperature Pulse Rate 79 Respiratory Rate 16 Blood Pressure 85/47 L 78/41 L Pulse Oximetry 98 Oxygen Delivery Method 12/14/24 05:35 12/14/24 05:35 12/14/24 05:45 Temperature Pulse Rate 80 Respiratory Rate 16 Blood Pressure 75/49 L 76/48 L Pulse Oximetry 97 Oxygen Delivery Method 12/14/24 05:45 12/14/24 06:00 12/14/24 06:00 Temperature Pulse Rate 79 81 Respiratory Rate 16 19 Blood Pressure 97/54 L Pulse Oximetry 97 96 Oxygen Delivery Method 12/14/24 06:05 12/14/24 06:05 12/14/24 06:15 Temperature Pulse Rate 77 Respiratory Rate 20 Blood Pressure 111/62 93/52 L Pulse Oximetry 97 Oxygen Delivery Method 12/14/24 06:15 12/14/24 06:30 12/14/24 06:30 Temperature Pulse Rate 79 78 Respiratory Rate 20 17 Blood Pressure 95/53 L Pulse Oximetry 98 99 Oxygen Delivery Method 12/14/24 06:45 12/14/24 06:45 12/14/24 07:00 Temperature 96.9 F L Pulse Rate 76 Respiratory Rate 18 Blood Pressure 102/56 L Pulse Oximetry 96 Oxygen Delivery Method 12/14/24 07:00 12/14/24 07:00 12/14/24 07:15 Temperature Pulse Rate 86 Respiratory Rate 17 Blood Pressure 101/59 L 103/58 L Pulse Oximetry 98 Oxygen Delivery Method 12/14/24 07:15 12/14/24 07:30 12/14/24 07:30 Temperature Pulse Rate 82 79 Respiratory Rate 16 17 Blood Pressure 100/57 L Pulse Oximetry 98 98 Oxygen Delivery Method 12/14/24 07:45 12/14/24 07:45 12/14/24 08:00 Temperature Pulse Rate 81 Respiratory Rate 16 Blood Pressure 107/57 L 110/56 L Pulse Oximetry 98 Oxygen Delivery Method 12/14/24 08:00 12/14/24 08:15 12/14/24 08:15 Temperature Pulse Rate 77 78 Respiratory Rate 18 17 Blood Pressure 112/57 L Pulse Oximetry 98 98 Oxygen Delivery Method 12/14/24 08:15 12/14/24 08:30 12/14/24 08:30 Temperature Pulse Rate 80 Respiratory Rate 18 Blood Pressure 107/53 L Pulse Oximetry 98 Oxygen Delivery Method Nasal Cannula 12/14/24 08:45 12/14/24 08:45 12/14/24 08:53 Temperature Pulse Rate 89 Respiratory Rate 22 Blood Pressure 96/58 L 101/59 L Pulse Oximetry 97 Oxygen Delivery Method 12/14/24 08:53 12/14/24 09:00 12/14/24 09:00 Temperature Pulse Rate 84 86 Respiratory Rate 12 20 Blood Pressure 102/55 L Pulse Oximetry 97 95 Oxygen Delivery Method 12/14/24 09:15 12/14/24 09:15 12/14/24 09:30 Temperature Pulse Rate 81 87 Respiratory Rate 18 19 Blood Pressure 95/52 L Pulse Oximetry 97 97 Oxygen Delivery Method 12/14/24 09:30 12/14/24 09:45 12/14/24 09:45 Temperature Pulse Rate 83 Respiratory Rate 29 H Blood Pressure 99/55 L 98/58 L Pulse Oximetry 98 Oxygen Delivery Method 12/14/24 10:00 12/14/24 10:00 Temperature Pulse Rate 78 Respiratory Rate 18 Blood Pressure 100/60 Pulse Oximetry 100 Oxygen Delivery Method Oxygen Delivery Method Nasal Cannula Quality TeleICU VTE Deep Vein Thrombosis/Pulmonary Embolism Present on Admission: No Assessment & Plan Time-Based Coding :: [TOTAL MINUTES] spent with patient and on the chart (including review of chart, obtaining history, exam, reviewing outside data, placing orders, documenting exam and treatment plan, and counseling patient) on [DATE].
--- NOTE | 2024-12-14 10:47 | PC.NURSE ---
1030 DR VILLAGOMEZ AT BEDSIDE VIA VIDEO CART. ORDERED LR DOWN TO 75 MLS/HR. STATES TO ALSO ORDER CBC WITH BMP ALREADY ORDERED AT 1500 AND PICC LINE ORDER ALSO.
--- NOTE | 2024-12-14 11:44 | DI.RAD.S_ITS ---
PROCEDURE: XR CHEST FOR PICC 1V INDICATIONS: line placement TECHNIQUE: One view of the chest was acquired. COMPARISON: None. FINDINGS: Surgical changes and devices: A right-sided PICC line can be seen. The tip is seen overlying the superior aspect of the superior vena cava. The distal tip demonstrates a slight curve. Lungs and pleura: An incomplete inspiratory result is noted, causing a crowded appearance to the lung markings. No focal infiltrates are seen. No pneumothorax or significant pleural effusions are seen. Mediastinum: Mediastinal contours appear normal. Heart size is normal. Bones and chest wall: No suspicious bony lesions. Overlying soft tissues appear unremarkable. IMPRESSION: The tip of the right-sided PICC line can be seen overlying the superior aspect of the superior vena cava. Given the curve at the tip of the catheter, concern is raised that the tip is within the azygos vein. - Please consider a follow-up lateral view versus CT for further evaluation. Dictated by: Art Cee M.D. on 12/14/2024 at 12:47 Approved by: Art Cee M.D. on 12/14/2024 at 12:49
[2024-12-14] MEDS: NOREPINEPHRINE BITARTRATE/D5W 4 MG/250 ML PLAST..BAG 32.535 MG IV (12:12)
--- NOTE | 2024-12-14 15:10 | CM.DPNOTE ---
DCP Note CINEMA OPERATOR reviewed EMR CINEMA OPERATOR met with dtr [place] and pt in room. introduced self and role. pt expressed flat affect during interaction. minimally participatory. per dtr, pt room had many empty bottles of listerine after further investigation. gets mouth wash from [employer]. CINEMA OPERATOR gave blank copy of DPOA paperwork. dtr to check out both [facility] and [facility] prior to expressing preference for SNFs- remain hopeful for SNF. hopeful for psychiatry consult while INPT to get pt started on either anti anxiety/anti depressant meds if possible. Dtr out of town for weekend starting Thursday. Per hospitalist, consulted. concerns that pt will start to withdrawal. not medically stable for PT/OT yet. will consider [facility] consult once more medically stable. P: medical POC continues. DCP pending medical stability/therapy recs/pt and family preference. CM team will continue to follow closely for DCP coordination JOE Dalal
[2024-12-14 15:16] LABS: Add Manual Diff / Slide Review NO; Hematocrit 27.4 % (36-46); Hemoglobin 9.9 g/dL (12.0-16.0); Lymphocytes Absolute Auto 300 /uL (1100-4500); Mean Corpuscular HGB Conc 36.2 % (30-36); Mean Corpuscular Hemoglobin 40.1 PG (26-34); Mean Corpuscular Volume 110.8 fL (80-100); Platelet Count 75 X10^3/uL (150-400)
[2024-12-14 15:21] LABS: HEMOLYSIS < 15 (0-50); Magnesium 2.2 mg/dL (1.6-2.3); Potassium 3.2 mmol/L (3.4-5.1)
--- NOTE | 2024-12-14 16:15 | DIET.CONS ---
Dietary Consultation Note Admission Date: 12/13/2024 17:28 Assessment: 64 y F admitted for perforated duodenal ulcer. Dietitian screened per CONSTRUCTION TRADES [employer]OR report of concerns with decreased PO intakes. Per CONSTRUCTION TRADES [employer]OR, pt was drinking 1 cup listerine daily. Met with pt at bedside. Reports wasn't eating for 7 days before admission. Before then diet recall is: a few pieces of cheese, a can of soup like beef barley, and at 4pm a can of ravioli. This has been her intakes for last 6 months. NFPE with no findings. Ht: 167.64 cm Wt: 72.3 kg BMI: 25.0 UBW: Unsure of weight changes, recent weights, or if she has lost weight. Last BM: 12/11/24 (12/13/24 21:29) MNA: Omega Score: 13 Diet: 12/13/24 21:16 NPO Diet Diet Modifications: NPO Type: NPO except for Ice Chips Labs: RBC 2.47 X10^6/uL (4.0-5.2) L 12/14/24 14:53 Hgb 9.9 g/dL (12.0-16.0) L 12/14/24 14:53 Hct 27.4 % (36-46) L 12/14/24 14:53 Creatinine 1.12 mg/dL (0.52-1.04) H 12/14/24 04:22 Lactate 1.9 mmol/L (0.7-2.1) 12/13/24 16:15 Nutrition Diagnosis: Inadequate oral intake r/t alterations in GI function/structure aeb no PO intakes for 7 days, 1 cup of listerine daily for ~1yr, and estimated <60% of EER per diet recall for 6 months Interventions: none at this time, is NPO -diet advancement per surgery EER: 1700 kcals (24 kcals/kg per BMI vs MSJx1.2) 70 g protein (1g/kg) Monitoring/Evaluations: days NPO and diet tolerance Electronically Signed by: Vandana Reyes 12/14/24 16:15 Clinical Dietitian [address] [id number]
[2024-12-14] MEDS: LACTATED RINGERS 1,000 ML 75 ML IV (16:58)
[2024-12-14 17:01] LABS: RBC Morphology Normal Morphology
--- NOTE | 2024-12-14 17:18 | P.CONS_ITS ---
History of Present Illness Consult details Date Patient Seen: 12/14/24 Chief complaint: Abdominal pain Reason for consult: Medical management Requesting provider: Golden Issa Narrative: Chief complaint: Perforated gastric ulcer with shock advanced liver disease and alcohol use History of present illness: 64-year-old female who consumes (4) 750 mL bottles of Listerine a week (27% alcohol) was admitted to general surgery service underwent emergent surgical repair of perforated gastric ulcer complicated by hypotensive shock managed in the intensive care unit. I was asked to consult regarding management of alcohol use disorder with end- organ injury during this hospitalization Hospital course has been characterized by successful repair of gastric perforation and management operative management of abdominal contents and hypotensive shock with pressors IV fluid resuscitation and antibiotics Findings significant regarding he has a white blood count of 9.8 with 87% neutrophils, PT INR 1.5 sodium 128 BUN 44 creatinine 1.57 Total bilirubin 2.8 AST [address] abdomen and pelvis shows a large lobulated liver consistent with hepatic steatosis Review of systems: Patient lethargic with Bradyphrenic unable to participate in review of systems Physical exam: Chronically ill elderly female Chris phrenic and bradykinetic with facial swelling and muscle wasting HEENT facial swelling with typical stigmata of dissipation Heart sounds distant Lung sounds distant Abdomen tender no bowel sounds nondistended Extremities muscle wasting and 1+ edema x4 For objective laboratory and imaging please see bottom of the note Assessment and plan: Gastric perforation with contents spilled into the peritoneal cavity status post surgical repair and washout per surgery stewardship on antibiotics per surgery * Co-management per surgery and production stage manager of shock, fluids, antibiotics Advanced liver disease secondary to excessive alcohol use with coagulopathy hyperbilirubinemia and possibly portal hypertension * Careful calculated doses of medications with hepatic metabolism Alcohol use disorder (alcoholism) * Moderate risk of acute withdrawal; this may be quite problematic in the setting of shock * If signs or symptoms of withdrawal manifest would have low threshold for management with Precedex * Significant risk if withdrawal occurs of severe hemodynamic stabilization * Acute treatment with intravenous thiamine for Wernicke-Korsakoff syndrome prophylaxis or perhaps even treatment * If patient survives this hospitalization may need to discuss inpatient rehabilitation and 12 step recovery DVT prophylaxis * SCDs only and per surgery stewardship Code status: * Full code blue 75 minutes of time involved in management of this patient including inpatient [id number] interview examination review of objective laboratory and imaging data discussion with surgery and daughter Meds Home Medications and Allergies Home Medications ?Medication ?Instructions ?Recorded ?Confirmed ?Type acetaminophen 500 mg capsule 500 mg PO Q6H PRN pain 12/13/24 History multivitamin (Daily Multi-Vitamin 1 tab PO DAILY 12/1312/13/24 History tablet) Allergies Allergy/AdvReac Type Severity Reaction Status Date / Time No Known Allergies Allergy Uncoded 08/26/17 12:58 Exam Vital Signs (past 8 hours): - 12/14/24 09:30 12/14/24 09:30 12/14/24 09:45 Temperature Pulse Rate 87 Respiratory Rate 19 Blood Pressure 99/55 L 98/58 L Pulse Oximetry 97 Oxygen Delivery Method 12/14/24 09:45 12/14/24 10:00 12/14/24 10:00 Temperature Pulse Rate 83 78 Respiratory Rate 29 H 18 Blood Pressure 100/60 Pulse Oximetry 98 100 Oxygen Delivery Method 12/14/24 10:15 12/14/24 10:15 12/14/24 10:30 Temperature Pulse Rate 79 Respiratory Rate 16 Blood Pressure 98/59 L 85/54 L Pulse Oximetry 99 Oxygen Delivery Method 12/14/24 10:30 12/14/24 10:41 12/14/24 10:41 Temperature Pulse Rate 82 75 Respiratory Rate 18 19 Blood Pressure 101/57 L Pulse Oximetry 99 99 Oxygen Delivery Method 12/14/24 10:45 12/14/24 10:45 12/14/24 11:00 Temperature Pulse Rate 73 Respiratory Rate 17 Blood Pressure 107/60 94/57 L Pulse Oximetry 100 Oxygen Delivery Method 12/14/24 11:00 12/14/24 11:15 12/14/24 11:15 Temperature Pulse Rate 72 75 Respiratory Rate 16 16 Blood Pressure 96/57 L Pulse Oximetry 99 100 Oxygen Delivery Method 12/14/24 11:30 12/14/24 11:31 12/14/24 11:31 Temperature Pulse Rate 84 83 Respiratory Rate 23 21 Blood Pressure 108/55 L Pulse Oximetry 98 98 Oxygen Delivery Method 12/14/24 11:45 12/14/24 11:45 12/14/24 12:00 Temperature 97.3 F L Pulse Rate 78 Respiratory Rate 18 Blood Pressure 108/55 L Pulse Oximetry 99 Oxygen Delivery Method 12/14/24 12:00 12/14/24 12:00 12/14/24 12:00 Temperature Pulse Rate 76 Respiratory Rate 19 Blood Pressure 109/56 L Pulse Oximetry 99 Oxygen Delivery Method Nasal Cannula 12/14/24 12:14 12/14/24 12:15 12/14/24 12:15 Temperature Pulse Rate 74 75 Respiratory Rate 22 18 Blood Pressure 108/59 L Pulse Oximetry 100 100 Oxygen Delivery Method 12/14/24 12:30 12/14/24 12:30 12/14/24 12:45 Temperature Pulse Rate 79 Respiratory Rate 21 Blood Pressure 119/73 107/64 Pulse Oximetry 100 Oxygen Delivery Method 12/14/24 12:45 12/14/24 13:00 12/14/24 13:00 Temperature Pulse Rate 80 77 Respiratory Rate 18 18 Blood Pressure 112/64 Pulse Oximetry 100 100 Oxygen Delivery Method 12/14/24 13:15 12/14/24 13:15 12/14/24 13:30 Temperature Pulse Rate 85 85 Respiratory Rate 20 16 Blood Pressure 105/59 L Pulse Oximetry 100 100 Oxygen Delivery Method 12/14/24 13:30 12/14/24 13:45 12/14/24 13:45 Temperature Pulse Rate 93 H Respiratory Rate 17 Blood Pressure 106/59 L 103/55 L Pulse Oximetry 99 Oxygen Delivery Method 12/14/24 14:00 12/14/24 14:00 12/14/24 14:15 Temperature Pulse Rate 78 Respiratory Rate 19 Blood Pressure 107/63 105/54 L Pulse Oximetry 99 Oxygen Delivery Method 12/14/24 14:15 12/14/24 14:30 12/14/24 14:30 Temperature Pulse Rate 77 70 Respiratory Rate 16 17 Blood Pressure 103/58 L Pulse Oximetry 100 100 Oxygen Delivery Method 12/14/24 14:45 12/14/24 14:45 12/14/24 15:00 Temperature Pulse Rate 81 Respiratory Rate 20 Blood Pressure 104/59 L 111/57 L Pulse Oximetry 99 Oxygen Delivery Method 12/14/24 15:00 12/14/24 15:15 12/14/24 15:15 Temperature Pulse Rate 80 75 Respiratory Rate 23 19 Blood Pressure 98/51 L Pulse Oximetry 99 100 Oxygen Delivery Method 12/14/24 15:30 12/14/24 15:30 12/14/24 15:45 Temperature Pulse Rate 75 Respiratory Rate 15 Blood Pressure 101/62 102/57 L Pulse Oximetry 100 Oxygen Delivery Method 12/14/24 15:45 12/14/24 16:00 12/14/24 16:00 Temperature 97.8 F Pulse Rate 73 Respiratory Rate 20 Blood Pressure Pulse Oximetry 100 Oxygen Delivery Method Nasal Cannula 12/14/24 16:00 12/14/24 16:01 12/14/24 16:01 Temperature Pulse Rate 77 75 Respiratory Rate 18 16 Blood Pressure 96/55 L Pulse Oximetry 100 99 Oxygen Delivery Method 12/14/24 16:15 12/14/24 16:15 12/14/24 16:30 Temperature Pulse Rate 74 Respiratory Rate 17 Blood Pressure 94/56 L 97/53 L Pulse Oximetry 99 Oxygen Delivery Method 12/14/24 16:30 12/14/24 16:45 12/14/24 16:45 Temperature Pulse Rate 76 81 Respiratory Rate 19 20 Blood Pressure 101/55 L Pulse Oximetry 100 99 Oxygen Delivery Method 12/14/24 17:00 12/14/24 17:00 Temperature Pulse Rate 80 Respiratory Rate 22 Blood Pressure 99/58 L Pulse Oximetry 99 Oxygen Delivery Method Oxygen Delivery Method Nasal Cannula Objective Labs 12/14/24 14:53 12/14/24 14:53 Labs: Laboratory Results - last 24 hr 12/13/24 12/13/24 12/13/24 19:14 20:35 21:30 WBC RBC Hgb Hct MCV MCH MCHC RDW Plt Count Neut % (Auto) Lymph % (Auto) [place] % (Auto) Eos % (Auto) Baso % (Auto) Neut # (Auto) Lymph # (Auto) [place] # (Auto) Eos # (Auto) Baso # (Auto) Platelet Estimate RBC Morphology Anisocytosis Macrocytosis PT 17.3 H INR 1.5 H Sodium Potassium Chloride Carbon Dioxide BUN Creatinine Estimated GFR BUN/Creatinine Ratio Glucose Calcium Magnesium Total Bilirubin AST ALT Alkaline Phosphatase Total Protein Albumin Globulin Albumin/Globulin Ratio Nasal Screen MRSA (PCR) Not detected Blood Type B Negative Antibody Screen Negative 12/13/24 12/14/24 12/14/24 22:03 04:22 14:53 WBC 4.4 L 9.8 D RBC 2.46 L 2.47 L Hgb 9.9 L 9.9 L Hct 27.2 L 27.4 L MCV 110.5 H 110.8 H MCH 40.3 H 40.1 H MCHC 36.5 H 36.2 H RDW 12.7 12.6 Plt Count 55 L 75 L Neut % (Auto) 86.7 H 87.4 H Lymph % (Auto) 4.2 L 3.3 L [place] % (Auto) 8.8 9.1 Eos % (Auto) 0.1 L 0.0 L Baso % (Auto) 0.2 0.2 Neut # (Auto) 3900 8600 H Lymph # (Auto) 200 L 300 L [place] # (Auto) 400 900 Eos # (Auto) 0 0 Baso # (Auto) 0 0 Platelet Estimate Decreased on smear RBC Morphology See below Normal morphology Anisocytosis 1+ H Macrocytosis 1+ H PT 16.6 H INR 1.5 H Sodium 130 L Potassium 2.9 L D 3.2 L Chloride 99 Carbon Dioxide 25 BUN 38 H Creatinine 1.12 H Estimated GFR 56 L BUN/Creatinine Ratio 33.9 H Glucose 98 Calcium 7.7 L Magnesium 1.6 2.2 Total Bilirubin 2.1 H AST 51 H ALT 24 Alkaline Phosphatase 64 Total Protein 4.3 L Albumin 2.1 L Globulin 2.2 Albumin/Globulin Ratio 1.0 Nasal Screen MRSA (PCR) Blood Type Antibody Screen PFSH Social History household members: children Tobacco & Substance Use Smoking Status: Never smoker alcohol intake: current Assessment & Plan Time-Based Coding :: [TOTAL MINUTES] spent with patient and on the chart (including review of chart, obtaining history, exam, reviewing outside data, placing orders, documenting exam and treatment plan, and counseling patient) on [DATE].
--- NOTE | 2024-12-14 17:44 | PC.NURSE ---
PT REMAINED A/OX4, 1LNC, ON LEVO GTT THROUGHOUT SHIFT. SEE VITALS. ABDOMINAL DRESSINGS REMAINED INTACT/ DRY WITH MINIMAL OLD DRAINAGE NOTED. POTASSIUM/MG REPLACED. SEE EMAR FOR MEDS GIVEN. TELE-INTENISIVIST ROUNDED. DECREASED IVF RATE/ REORDERED LABS. PICC LINE PLACED BY DI NURSE. LEVO GTT TITRATED DOWN. DR BULL BY X3 TODAY. HAD LENGTHY CONVERSATION WITH DAUGHTER AND DR HUANG REGARDING PLAN OF CARE AT 1600. GOODEN D/C'D PER ORDER. LABS REDRAWN AND POTASSIUM REPLACEMENT ORDERED. ANTOINETTE DRAINS EMPTIED SEROSANGUINOUS FLUID (L 45MLS, R 40 MLS). PT COMORTABLE IN BED AT THIS TIME WITH NO COMPLAINTS OF PAIN. CARE ONGOING. PT REQUESTING DAUGHTER TO GET NICORETTE LOZENGES FROM [place]. SMALL CONTAINER OF UNLABELED PILLS FOUND IN [place]. SENT TO PHARMACY FOR PATIENT SAFETY.
[2024-12-14] MEDS: THIAMINE 500 MG in SODIUM CHLORIDE 0.9% 100 ML 420 MG IV (20:23)
[2024-12-15] VITALS (73 sets, daily range): BP systolic 87–124; BP diastolic 51–76; PULSE 62–92; RESP 11–27; TEMP 36.1–36.6; O2SAT 94–99
[2024-12-15] MEDS: PIPERACILLIN/TAZO 3.375 GM in SODIUM CHLORIDE 0.9% 100 ML IV ×3 (01:35→17:12)
[2024-12-15] MEDS: NOREPINEPHRINE BITARTRATE/D5W 4 MG/250 ML PLAST..BAG 16.268 MG IV (04:07)
[2024-12-15] MEDS: LACTATED RINGERS 1,000 ML 75 ML IV ×2 (05:08→17:13)
[2024-12-15 05:48] LABS: Blood Urea Nitrogen 23 mg/dL (7-17); Calcium 7.4 mg/dL (8.4-10.2); Carbon Dioxide 26 mmol/L (22-32); Chloride 101 mmol/L (98-107); Estimated Glomerular Filt Rate > 60 mL/min (>60); Glucose 107 mg/dL (70-99); HEMOLYSIS < 15 (0-50); Magnesium 2.2 mg/dL (1.6-2.3); Potassium 3.3 mmol/L (3.4-5.1); Sodium 130 mmol/L (137-145)
[2024-12-15] MEDS: MICAFUNGIN 100 MG in SODIUM CHLORIDE 0.9% 100 ML IV (07:21)
[2024-12-15] MEDS: THIAMINE 500 MG in SODIUM CHLORIDE 0.9% 100 ML 420 MG IV ×3 (07:30→22:51)
[2024-12-15 08:46] LABS: Add Manual Diff / Slide Review NO; Hematocrit 29.0 % (36-46); Hemoglobin 10.3 g/dL (12.0-16.0); Lymphocytes Absolute Auto 700 /uL (1100-4500); Mean Corpuscular HGB Conc 35.6 % (30-36); Mean Corpuscular Hemoglobin 40.0 PG (26-34); Mean Corpuscular Volume 112.3 fL (80-100); Platelet Count 75 X10^3/uL (150-400)
[2024-12-15 08:57] LABS: Rouleaux 1+
[2024-12-15] MEDS: PANTOPRAZOLE 40 MG VIAL IV (09:03)
[2024-12-15] MEDS: POTASSIUM CHLORIDE IN WATER 10 MEQ/100 ML PIGGYBACK 100 MEQ IV ×4 (09:26→12:40)
[2024-12-15] MEDS: SODIUM CHLORIDE 0.9% FLUSH 10 ML IV (09:26)
--- NOTE | 2024-12-15 09:34 | PM.PN.EICU ---
Subjective Subjective IF CAMERA ACTIVATED, patient seen via real-time interactive audiovisual communication: Camera activated Consent obtained for tele-butadiene converter helper care: Yes Patient Location: ICU Provider location (State): Other participants/roles: RN Interval history: Pt on 1 L of N[place], levo for septic shock, down to 0.01 mcg/kg/min, Cr normalized. No bowel sound yet. 1. Perforated duodenal uler ---> s/p OR, ex lap with omental patch ---> Continue zosyn & micafungin , follow up Cx 2. HERBIE - Resolved, continue IV fluid to LR 75 ml/hr - Trend BMP daily 3. Anemia - Acute blood loss + dilutional - HB stable, CBC daily DVTP - SCDs, consider chemical when ok with GS GIP - Protonix Diet - NPO Current Medications Current Medications Medications: Home Medications acetaminophen 500 mg capsule 500 mg PO Q6H PRN pain 12/13/24 [History Confirmed 12/13/24] multivitamin (Daily Multi-Vitamin tablet) 1 tab PO DAILY 12/13/24 [History Confirmed 12/13/24] Visit Medications (administered) Generic Name Dose Route Start Last Admin Trade Name Freq PRN Reason Stop Dose Admin Heparin Sodium (Porcine) 50 unit 12/15/24 09:00 12/15/24 09:03 Heparin Flush (Cl/Picc/Mid-Line) 50 Unit/5 Ml Syringe IV 50 unit BID ELIESER Administration Hydromorphone HCl 0.5 mg 12/13/24 21:16 12/14/24 20:35 Hydromorphone Hcl 0.5 Mg/0.5 Ml Syringe IV 0.5 mg Q2H PRN Administration Pain, Severe (7-10) Lactated Ringer's 1,000 mls @ 75 mls/hr 12/13/24 21:16 12/15/24 05:08 Lactated Ringers IV 75 mls/hr CONT ELIESER Administration Piperacillin Sod/Tazobactam 100 mls @ 25 mls/hr 12/14/24 01:00 12/15/24 09:03 Sod 3.375 gm/ Sodium Chloride IV 25 mls/hr Q8H ELIESER Administration NOREPINEPHRINE BITARTRATE/D5W 4 mg in 250 mls @ 27.113 mls/hr 12/14/24 05:44 12/15/24 09:15 Levophed IV 0.01 mcg/kg/min TITRATE ELIESER 2.711 mls/hr Protocol Titration 0.1 MCG/KG/MIN Micafungin Sodium 100 mg/ 100 mls @ 100 mls/hr 12/14/24 06:00 12/15/24 08:25 Sodium Chloride IV Infused Q24H ELIESER Infusion Thiamine HCl 500 mg/ Sodium 105 mls @ 420 mls/hr 12/15/24 06:45 12/15/24 07:45 Chloride IV Infused Q8HR ELIESER Infusion POTASSIUM CHLORIDE IN WATER 10 meq in 100 mls @ 100 mls/hr 12/15/24 09:15 12/15/24 09:26 Potassium Cl 10 Meq/100 Ml Marta IV 12/15/24 13:14 100 mls/hr Q1H ELIESER Administration Pantoprazole Sodium 40 mg 12/14/24 09:00 12/15/24 09:03 Pantoprazole 40 Mg Vial IV 40 mg DAILY ELIESER Administration Sodium Chloride 10 ml 12/14/24 09:00 12/15/24 09:26 Sodium Chloride 0.9% Flush IV 10 ml BID ELIESER Administration Objective Labs 12/15/24 05:04 12/15/24 05:24 Labs: Laboratory Results - last 24 hr 12/14/24 12/14/24 12/14/24 14:53 17:27 21:32 WBC 9.8 D RBC 2.47 L Hgb 9.9 L Hct 27.4 L MCV 110.8 H MCH 40.1 H MCHC 36.2 H RDW 12.6 Plt Count 75 L Neut % (Auto) 87.4 H Lymph % (Auto) 3.3 L [place] % (Auto) 9.1 Eos % (Auto) 0.0 L Baso % (Auto) 0.2 Neut # (Auto) 8600 H Lymph # (Auto) 300 L [place] # (Auto) 900 Eos # (Auto) 0 Baso # (Auto) 0 Platelet Estimate Decreased on smear RBC Morphology Normal morphology Rouleaux Sodium Potassium 3.2 L Chloride Carbon Dioxide BUN Creatinine Estimated GFR BUN/Creatinine Ratio Glucose POC Whole Bld Glucose 122 H 101 H Calcium Magnesium 2.2 12/15/24 12/15/24 05:04 05:24 WBC 11.0 RBC 2.58 L Hgb 10.3 L Hct 29.0 L MCV 112.3 H MCH 40.0 H MCHC 35.6 RDW 12.7 Plt Count 75 L Neut % (Auto) 85.2 H Lymph % (Auto) 6.7 L [place] % (Auto) 7.5 Eos % (Auto) 0.1 L Baso % (Auto) 0.5 Neut # (Auto) 9300 H Lymph # (Auto) 700 L [place] # (Auto) 800 Eos # (Auto) 0 Baso # (Auto) 100 Platelet Estimate RBC Morphology Not Reportable Rouleaux 1+ H Sodium 130 L Potassium 3.3 L Chloride 101 Carbon Dioxide 26 BUN 23 H Creatinine 0.77 Estimated GFR > 60 BUN/Creatinine Ratio 29.9 H Glucose 107 H POC Whole Bld Glucose Calcium 7.4 L Magnesium 2.2 Exam Vital Signs (past 8 hours): - 12/15/24 02:00 12/15/24 02:00 12/15/24 02:30 Temperature Pulse Rate 74 70 Respiratory Rate 13 13 Blood Pressure 114/56 L Pulse Oximetry 96 96 Oxygen Delivery Method 12/15/24 03:00 12/15/24 03:00 12/15/24 03:30 Temperature 97.3 F L Pulse Rate 73 69 Respiratory Rate 11 L 13 Blood Pressure 107/58 L Pulse Oximetry 97 97 Oxygen Delivery Method 12/15/24 04:00 12/15/24 04:00 12/15/24 04:00 Temperature Pulse Rate 67 Respiratory Rate 13 Blood Pressure 109/56 L Pulse Oximetry 97 Oxygen Delivery Method Nasal Cannula 12/15/24 04:30 12/15/24 05:00 12/15/24 05:00 Temperature Pulse Rate 66 67 Respiratory Rate 13 16 Blood Pressure 116/63 Pulse Oximetry 96 96 Oxygen Delivery Method 12/15/24 05:30 12/15/24 06:00 12/15/24 06:00 Temperature Pulse Rate 70 72 Respiratory Rate 19 15 Blood Pressure 113/67 Pulse Oximetry 95 97 Oxygen Delivery Method 12/15/24 06:30 12/15/24 07:00 12/15/24 07:00 Temperature 97.8 F Pulse Rate 64 68 Respiratory Rate 14 14 Blood Pressure 121/66 Pulse Oximetry 96 97 Oxygen Delivery Method 12/15/24 07:15 12/15/24 07:15 12/15/24 07:30 Temperature Pulse Rate 62 81 Respiratory Rate 15 23 Blood Pressure Pulse Oximetry 96 96 Oxygen Delivery Method Nasal Cannula 12/15/24 07:45 12/15/24 07:54 12/15/24 07:54 Temperature Pulse Rate 84 81 Respiratory Rate 22 23 Blood Pressure 118/58 L Pulse Oximetry 97 98 Oxygen Delivery Method 12/15/24 08:00 12/15/24 08:00 12/15/24 08:00 Temperature 97.5 F L Pulse Rate 75 Respiratory Rate 20 Blood Pressure 117/57 L Pulse Oximetry 98 Oxygen Delivery Method 12/15/24 08:15 12/15/24 08:15 12/15/24 08:30 Temperature Pulse Rate 70 Respiratory Rate 17 Blood Pressure 113/59 L 107/57 L Pulse Oximetry 99 Oxygen Delivery Method 12/15/24 08:30 12/15/24 08:46 12/15/24 08:46 Temperature Pulse Rate 67 91 H Respiratory Rate 14 27 H Blood Pressure 119/76 Pulse Oximetry 98 96 Oxygen Delivery Method 12/15/24 09:00 12/15/24 09:00 Temperature Pulse Rate 74 Respiratory Rate 18 Blood Pressure 115/67 Pulse Oximetry 96 Oxygen Delivery Method Oxygen Delivery Method Nasal Cannula Quality TeleICU VTE Deep Vein Thrombosis/Pulmonary Embolism Present on Admission: No Assessment & Plan Time-Based Coding :: [TOTAL MINUTES] spent with patient and on the chart (including review of chart, obtaining history, exam, reviewing outside data, placing orders, documenting exam and treatment plan, and counseling patient) on [DATE].
--- NOTE | 2024-12-15 15:07 | PT-IP ANOTE ---
PT consult received. Pt is off pressors. PT clears with hospitalist and checks in with pt who c/o being cold. She declines skilled PT assessment today d/t feeling tired and having stomach pain. PT dons socks and provides warm blanket for pt. PT encourages pt to work with PT next date.
--- NOTE | 2024-12-15 16:01 | PC.NURSE ---
ALERT/ORIENTED WITH C/O PAIN ONLY WITH MOVEMENT/ TURNS. NO S/S OF WITHDRAWAL NOTED. TITRATED OFF LEVO AT 1006. BP REMAINED STABLE, SEE VITALS. AM MEDS GIVEN. POTASSIUM REPLACED. DRESSINGS REMAIN D/I. DAHLIA ROUNDED/ ORDERED PHY THERAPY. REINA ROUNDED AND STATES HE DOES NOT WANT PATIENT TO RECEIVE PHY THERAPY TODAY. DR BULL ROUNDED AND STATED TO ORDER CLEAR LIQUID DIET. PATIENT DOWNGRADED FROM ICU. DAUGHTER AT BEDSIDE PRESENT FOR ROUNDS/ HAD DISCUSSION WITH DOCTORS REGARDING PLAN OF CARE. 80 MLS SEROSANGUINOUS FLUID OUT OF R ANTOINETTE AND 30 MLS OUT OF L ANTOINETTE. PATIENT COMFORTABLE IN BED AT THIS TIME. NO CONCERNS NOTED. CARE ONGOING. DAUGHTER IS TO BE OUT OF TOWN THURSDAY-THURSDAY WITH POTENTIALLY NO SERVICE STARTING AROUND 12/16 AT 1PM. OPTED NOT TO LEAVE ANY OTHER FAMILY CONTACT INFORMATION IN CASE OF EMERGENCY.
--- NOTE | 2024-12-15 17:04 | P.PN_ITS ---
Subjective Subjective Date Patient Seen: 12/15/24 Time Patient Seen: 17:04 Interval history: Arianna feels tired today, pain is mostly controlled Exam Vital Signs (past 8 hours): - 12/15/24 09:15 12/15/24 09:15 12/15/24 09:30 Temperature Pulse Rate 79 Respiratory Rate 12 Blood Pressure 108/61 104/58 L Pulse Oximetry 97 Oxygen Delivery Method 12/15/24 09:30 12/15/24 09:45 12/15/24 09:46 Temperature Pulse Rate 73 74 Respiratory Rate 15 15 Blood Pressure 109/54 L Pulse Oximetry 97 96 Oxygen Delivery Method 12/15/24 09:46 12/15/24 10:00 12/15/24 10:00 Temperature Pulse Rate 74 77 Respiratory Rate 17 19 Blood Pressure 113/57 L Pulse Oximetry 97 97 Oxygen Delivery Method 12/15/24 10:15 12/15/24 10:15 12/15/24 10:30 Temperature Pulse Rate 74 68 Respiratory Rate 11 L 15 Blood Pressure 106/53 L Pulse Oximetry 97 97 Oxygen Delivery Method 12/15/24 10:30 12/15/24 10:45 12/15/24 10:45 Temperature Pulse Rate 71 Respiratory Rate 15 Blood Pressure 98/51 L 87/54 L Pulse Oximetry 96 Oxygen Delivery Method 12/15/24 10:46 12/15/24 10:46 12/15/24 11:00 Temperature Pulse Rate 69 Respiratory Rate 14 Blood Pressure 90/53 L 94/54 L Pulse Oximetry 97 Oxygen Delivery Method 12/15/24 11:00 12/15/24 11:15 12/15/24 11:15 Temperature Pulse Rate 70 72 Respiratory Rate 15 15 Blood Pressure 93/54 L Pulse Oximetry 97 96 Oxygen Delivery Method 12/15/24 11:30 12/15/24 11:30 12/15/24 11:45 Temperature Pulse Rate 71 Respiratory Rate 18 Blood Pressure 93/51 L 98/55 L Pulse Oximetry 97 Oxygen Delivery Method 12/15/24 11:45 12/15/24 12:00 12/15/24 12:00 Temperature Pulse Rate 75 Respiratory Rate 18 Blood Pressure 96/55 L Pulse Oximetry 97 Oxygen Delivery Method Nasal Cannula 12/15/24 12:00 12/15/24 12:00 12/15/24 12:15 Temperature 97.9 F Pulse Rate 73 Respiratory Rate 16 Blood Pressure 121/73 Pulse Oximetry 97 Oxygen Delivery Method 12/15/24 12:15 12/15/24 12:30 12/15/24 12:30 Temperature Pulse Rate 81 77 Respiratory Rate 19 24 Blood Pressure 104/58 L Pulse Oximetry 95 97 Oxygen Delivery Method 12/15/24 12:45 12/15/24 12:45 12/15/24 13:00 Temperature Pulse Rate 72 Respiratory Rate 16 Blood Pressure 105/62 99/60 Pulse Oximetry 98 Oxygen Delivery Method 12/15/24 13:00 12/15/24 13:16 12/15/24 13:16 Temperature Pulse Rate 71 83 Respiratory Rate 15 22 Blood Pressure 124/58 L Pulse Oximetry 97 97 Oxygen Delivery Method 12/15/24 13:30 12/15/24 13:30 12/15/24 13:45 Temperature Pulse Rate 79 Respiratory Rate 19 Blood Pressure 105/58 L 109/58 L Pulse Oximetry 99 Oxygen Delivery Method 12/15/24 13:45 12/15/24 14:00 12/15/24 14:00 Temperature Pulse Rate 77 72 Respiratory Rate 16 15 Blood Pressure 104/53 L Pulse Oximetry 98 98 Oxygen Delivery Method 12/15/24 14:15 12/15/24 14:15 12/15/24 14:30 Temperature Pulse Rate 77 Respiratory Rate 16 Blood Pressure 105/55 L 107/53 L Pulse Oximetry 98 Oxygen Delivery Method 12/15/24 14:30 12/15/24 14:45 12/15/24 14:45 Temperature Pulse Rate 88 89 Respiratory Rate 22 20 Blood Pressure 115/56 L Pulse Oximetry 97 97 Oxygen Delivery Method 12/15/24 15:00 12/15/24 15:00 12/15/24 15:15 Temperature Pulse Rate 76 Respiratory Rate 17 Blood Pressure 106/59 L 103/59 L Pulse Oximetry 98 Oxygen Delivery Method 12/15/24 15:15 12/15/24 15:30 12/15/24 15:30 Temperature Pulse Rate 79 85 Respiratory Rate 18 21 Blood Pressure 114/58 L Pulse Oximetry 98 97 Oxygen Delivery Method 12/15/24 15:45 12/15/24 15:45 12/15/24 16:00 Temperature Pulse Rate 84 Respiratory Rate 18 Blood Pressure 108/53 L 118/57 L Pulse Oximetry 97 Oxygen Delivery Method 12/15/24 16:00 12/15/24 16:00 12/15/24 16:15 Temperature 97.2 F L Pulse Rate 83 Respiratory Rate 20 Blood Pressure 109/57 L Pulse Oximetry 97 Oxygen Delivery Method 12/15/24 16:15 12/15/24 16:30 12/15/24 16:30 Temperature Pulse Rate 79 74 Respiratory Rate 16 17 Blood Pressure 100/58 L Pulse Oximetry 99 98 Oxygen Delivery Method 12/15/24 16:45 12/15/24 16:45 Temperature Pulse Rate 71 Respiratory Rate 16 Blood Pressure 109/56 L Pulse Oximetry 99 Oxygen Delivery Method Oxygen Delivery Method Nasal Cannula Narrative Exam Narrative: Abdomen is soft, nontender Drains contains serous drainage with a small amount of blood Objective Labs 12/15/24 05:04 12/15/24 05:24 Labs: Laboratory Results - last 24 hr 12/14/24 12/14/24 12/15/24 17:27 21:32 05:04 WBC 11.0 RBC 2.58 L Hgb 10.3 L Hct 29.0 L MCV 112.3 H MCH 40.0 H MCHC 35.6 RDW 12.7 Plt Count 75 L Neut % (Auto) 85.2 H Lymph % (Auto) 6.7 L [place] % (Auto) 7.5 Eos % (Auto) 0.1 L Baso % (Auto) 0.5 Neut # (Auto) 9300 H Lymph # (Auto) 700 L [place] # (Auto) 800 Eos # (Auto) 0 Baso # (Auto) 100 RBC Morphology Not Reportable Rouleaux 1+ H Sodium Potassium Chloride Carbon Dioxide BUN Creatinine Estimated GFR BUN/Creatinine Ratio Glucose POC Whole Bld Glucose 122 H 101 H Calcium Magnesium 12/15/24 05:24 WBC RBC Hgb Hct MCV MCH MCHC RDW Plt Count Neut % (Auto) Lymph % (Auto) [place] % (Auto) Eos % (Auto) Baso % (Auto) Neut # (Auto) Lymph # (Auto) [place] # (Auto) Eos # (Auto) Baso # (Auto) RBC Morphology Rouleaux Sodium 130 L Potassium 3.3 L Chloride 101 Carbon Dioxide 26 BUN 23 H Creatinine 0.77 Estimated GFR > 60 BUN/Creatinine Ratio 29.9 H Glucose 107 H POC Whole Bld Glucose Calcium 7.4 L Magnesium 2.2 PFSH Social History household members: children alcohol intake: current Assessment & Plan Assessment and plan (1) Duodenal ulcer, perforated: Status: Acute Plan Advanced to clear liquid diet Time-Based Coding :: [TOTAL MINUTES] spent with patient and on the chart (including review of chart, obtaining history, exam, reviewing outside data, placing orders, documenting exam and treatment plan, and counseling patient) on [DATE]. Quality VTE Deep Vein Thrombosis/Pulmonary Embolism Present on Admission: No [facility] Advanced Practice Nurse Psychotherapist Document charge(s): No
[2024-12-16] VITALS (41 sets, daily range): BP systolic 103–128; BP diastolic 59–66; PULSE 73–103; RESP 12–31; TEMP 36.2–36.7; O2SAT 88–99
[2024-12-16] MEDS: PIPERACILLIN/TAZO 3.375 GM in SODIUM CHLORIDE 0.9% 100 ML IV ×3 (00:29→21:58)
[2024-12-16] MEDS: THIAMINE 500 MG in SODIUM CHLORIDE 0.9% 100 ML 420 MG IV ×3 (05:53→22:00)
[2024-12-16] MEDS: MICAFUNGIN 100 MG in SODIUM CHLORIDE 0.9% 100 ML IV (05:53)
[2024-12-16] MEDS: LACTATED RINGERS 1,000 ML 75 ML IV ×2 (05:56→22:18)
[2024-12-16 06:47] LABS: Blood Urea Nitrogen 15 mg/dL (7-17); Calcium 7.2 mg/dL (8.4-10.2); Carbon Dioxide 26 mmol/L (22-32); Chloride 102 mmol/L (98-107); Estimated Glomerular Filt Rate > 60 mL/min (>60); Glucose 94 mg/dL (70-99); HEMOLYSIS 35 (0-50); Magnesium 1.8 mg/dL (1.6-2.3); Potassium 3.4 mmol/L (3.4-5.1); Sodium 131 mmol/L (137-145)
[2024-12-16] MEDS: PANTOPRAZOLE 40 MG VIAL IV (09:47)
[2024-12-16] MEDS: ENOXAPARIN 40 MG/0.4 ML SYRINGE SUBCUT (09:48)
[2024-12-16] MEDS: SODIUM CHLORIDE 0.9% FLUSH 10 ML IV ×2 (09:49→21:58)
[2024-12-16] MEDS: POTASSIUM CHLORIDE IN WATER 10 MEQ/100 ML PIGGYBACK 100 MEQ IV ×2 (10:20→11:49)
--- NOTE | 2024-12-16 11:40 | PT.IIE ---
Current Diagnoses Chronic or unspecified duodenal ulcer with perforation (12/13/24) Other specified symptoms and signs involving the digestive system and abdomen (12/13/24) Surgery Performed Operation Date: 12/13/24 19:00 Actual Procedures p Exploratory Laparotomy with omental patch of perforated ulcer, abdominal washout - Golden Issa MD Physical Therapy Inpatient Evaluation/Re-Eval M1 PT/OT-IP Prior Functional Status Start: 12/15/24 13:11 Freq: NEEDED Status: Active Protocol: Document 12/16/24 11:40 AB (Rec: 12/16/24 13:49 AB [id number]) Medical Review Prior Functional Status Medical History Yes Reviewed Communication agreeable to do PT Mobility and Gait pt stated that she was modified independent with all mobilities and ambulation without AD Social History Household Members children Living Arrangements House Number of Floors ( One Floor Floors) Number of Stairs To ramp to enter Enter/Railing? 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 Additional Social pt lives with her daughter but daughter works and not History Comment available to provide assistance M2 PT-IP Current Condition Start: 12/15/24 13:11 Freq: NEEDED Status: Active Protocol: Document 12/16/24 11:40 AB (Rec: 12/16/24 13:49 AB [id number]) Physical Therapy Current Condition Current Condition Evaluation Date 12/16/24 Treatment Diagnosis perforated duodenal ulcer s/p ex-lap; difficulty in walking Onset Date 12/13/24 M3 PT-IP Subjective Start: 12/15/24 13:11 Freq: NEEDED Status: Active Protocol: Document 12/16/24 11:40 AB (Rec: 12/16/24 13:49 AB [id number]) Therapy Pain Assessment Pain When Pain Assessed At Rest Pain Present Pain Present Pain Reported Location Abdomen Intensity 7 Scale Used Numeric (0 - 10) Pain Behaviors Guarding,Holding Area,Wincing Pain Management Distraction,Modification of Treatment,Re-positioning, Techniques Timing of Activity with Medications M4 PT-IP Mobility and Gait Start: 12/15/24 13:11 Freq: NEEDED Status: Active Protocol: Document 12/16/24 11:40 AB (Rec: 12/16/24 13:49 AB [id number]) PT-Bed Mobility Assessment Rolling Type of Rolling Log Rolling Level of Assist Maximal Assistance,1 Person Assistance,2 Person Assistance Supine to Sit Supine to Sit 1 Person Assistance,2 Person Assistance,Bedrails Scooting Scooting to Edge of Maximum Assistance Bed PT-Transfer Assessment Sit to and From Stand Sit to and from Moderate Assistance,Maximum Assistance,1 Person Stand Assistance,Use of Upper Extremities Equipment Transfer Assistive Gait Belt,Front Wheeled Walker Device Orthotic/Prosthetic No Devices or Brace: Transfers Transfer Destination Bed,Bedside Commode Transfer Technique Stand Step Pivot Transfer Ability Level of Assist Maximum Assistance,1 Person Assistance,2 Person Assistance,Use of Upper Extremities Comments Mobility Comments pt in bed and agreeable to do PT. obtain PLOF and home set up. educated pt on abdominal precautions and log roll bed mobility. BP: 117/64 O2 sat at RA: 97-99% completed log roll supine to sit max A x 1-2 and max cues. pt used bed rail to assist. c/o increase abdominal pain. sit to stand mod A to max A and max cues and step transfer to bedside commode max A and max cues using fWW. completed sit to stand from bedside commode max A and was able to maintain standing mod to max A for standing balance using FWW for support while OT assisted pt with hygiene care and brief management. pt step transfer to chair max A x 2 using FWW with slight B knee buckling during transfer. positioned pt on the chair. call light and table placed within reach. Gait Assessment Comments Gait Comments unable at this time PT-Balance Assessment Sitting Balance and Reactions Static Sitting Fair Balance Ability Dynamic Sitting Fair Balance Ability Standing Balance and Reactions Static Standing Poor Balance Ability Dynamic Standing Poor Balance Ability Device Used FWW M5 PT-IP Objective Assessments Start: 12/15/24 13:11 Freq: NEEDED Status: Active Protocol: Document 12/16/24 11:40 AB (Rec: 12/16/24 13:49 AB [id number]) Orientation Orientation/Cognition Level of Alertness Alert Orientation Name,Place,Situation Language Function Hard of Hearing Ability Safety Awareness Decreased Safety Awareness Memory Description Short Term Impaired Gross Range of Motion Lower Extremity ROM Assessment Within Functional Limits Strength Lower Extremity Strength Assessment Bilaterally Impaired Hip 3+/5 Knee +/5 Sensation Assessment Sensation Gross Sensation WNL Muscle Tone Muscle Tone WNL Yes M6 PT-IP Treatment Start: 12/15/24 13:11 Freq: NEEDED Status: Active Protocol: Document 12/16/24 11:40 AB (Rec: 12/16/24 13:49 AB [id number]) Physical Therapy Treatment Education Education Provided Precautions,Post-Op Packet,Safety M7 PT-IP Assessment and Plan Start: 12/15/24 13:11 Freq: NEEDED Status: Active Protocol: Document 12/16/24 11:40 AB (Rec: 12/16/24 13:49 AB [id number]) PT Summary Assessment and Plan Potential Rehabilitation Fair Potential Status of Condition Evolving at Evaluation Summary Impairments Pain,ROM,Strength,Balance,Coordination,Sensation,Tone, Cognition,Bed Mobility,Transfers,Gait,Activity Tolerance Assessment Summary pt is a 64 y/o F who is admitted for perforated duodenal ulcer and underwent ex-lap repair. pt has abdominal precautions. pt requiring max A x 1-2 and max cues with all tasks. pt unable to ambulate at this time and has decrease activity tolerance with c/o increase pain with movement. pt will benefit from SNF rehab to improve overall strength and mobility. Goals Bed Mobility Goal Minimal Assistance Transfer Goal Minimal Assistance,Front Wheeled Walker Gait Goal Minimal Assistance,Front Wheel Walker Gait Distance 50 Other Goals improve bed mobility, transfers and ambulation using LRAD/without AD 150 ft mod I Days to Meet Goals 10 Frequency of Treatment Frequency Of Once a Day Treatment Treatment Plan Physical Therapy Bed Mobility Training,Transfer Training,Gait Training, Treatment Plan Therapeutic Exercise,Balance Retraining,Post Op Education,Discharge Planning,Hot or Cold Pack, Neuromuscular Re-ed,Coordination Retraining,Manual Therapy Precautions Abdominal Surgery Log Roll,Lifting Restrictions,Gait Belt above Precautions Incisional Area Recommendations To Nursing Amount of Assist 2 Person Assist Needed Discharge Recommendations PT Discharge SNF Rehab Recommendations Transportation Needs Wheelchair/Cabulance,Stretcher/Ambulance at Discharge - PT assist 2
[2024-12-16] MEDS: HYDROCODONE/ACET 5/325 TABLET 1 TAB PO (11:49)
--- NOTE | 2024-12-16 14:31 | P.PN_ITS ---
Subjective Subjective Date Patient Seen: 12/16/24 Time Patient Seen: 09:11 Interval history: History of present illness: 64-year-old female who consumes (4) 750 mL bottles of Listerine a week (27% alcohol) was admitted to general surgery service underwent emergent surgical repair of perforated gastric ulcer complicated by hypotensive shock managed in the intensive care unit. I was asked to consult regarding management of alcohol use disorder with end- organ injury during this hospitalization Hospital course has been characterized by successful repair of gastric perforation and management operative management of abdominal contents and hypotensive shock with pressors IV fluid resuscitation and antibiotics Findings significant regarding he has a white blood count of 9.8 with 87% neutrophils, PT INR 1.5 sodium 128 BUN 44 creatinine 1.57 Total bilirubin 2.8 AST [address] abdomen and pelvis shows a large lobulated liver consistent with hepatic steatosis 12/16: The patient appears comfortable, reporting ongoing abdominal pain, though was able to advance to a clear liquid diet. Exam Vital Signs (past 8 hours): - 12/16/24 07:00 12/16/24 07:30 12/16/24 08:00 Temperature Pulse Rate 78 74 75 Respiratory Rate 17 16 17 Blood Pressure Pulse Oximetry 98 98 98 Oxygen Flow Rate 0 12/16/24 08:00 12/16/24 08:30 12/16/24 09:00 Temperature Pulse Rate 84 84 75 Respiratory Rate 21 23 17 Blood Pressure Pulse Oximetry 99 98 99 Oxygen Flow Rate 12/16/24 09:30 12/16/24 10:00 12/16/24 10:30 Temperature Pulse Rate 74 83 74 Respiratory Rate 17 28 H 19 Blood Pressure Pulse Oximetry 98 98 98 Oxygen Flow Rate 12/16/24 11:00 12/16/24 11:30 12/16/24 12:00 Temperature 97.3 F L Pulse Rate 85 74 Respiratory Rate 22 17 Blood Pressure Pulse Oximetry 99 99 Oxygen Flow Rate 12/16/24 12:00 12/16/24 12:01 12/16/24 12:01 Temperature Pulse Rate 89 88 Respiratory Rate 26 H 25 H Blood Pressure 117/59 L Pulse Oximetry 97 98 Oxygen Flow Rate 12/16/24 12:18 12/16/24 12:18 12/16/24 12:31 Temperature Pulse Rate 99 H 79 Respiratory Rate Blood Pressure 117/66 Pulse Oximetry 88 L Oxygen Flow Rate Oxygen Delivery Method Nasal Cannula Oxygen Flow Rate 0 Narrative Exam Narrative: Chronically ill female with muscle wasting HEENT facial swelling with typical stigmata of dissipation Heart sounds distant Lung sounds distant Abdomen tender no bowel sounds nondistended Extremities muscle wasting and 1+ edema Objective Imaging Abdomen pelvis CT 12/13/2024: : Radiologist's impression: 1. Large amount of abdominal and pelvic free fluid with significant free air as described above. 2. Significant distal gastric wall thickening and wall thickening involving proximal to mid duodenum with anterior proximal duodenal wall defect and adjacent air concerning for perforated duodenal ulcer. 3. No significant small bowel or colon wall thickening. Distal esophageal wall thickening concerning for mild esophagitis. 4. Severe hepatic steatosis, no discrete hepatic lesion. 5. Cholelithiasis without CT evidence of acute cholecystitis. 6. Small amount of right pleural effusion and right basilar atelectasis. Chest xray 12/14/2024:: Radiologist's impression: The tip of the right-sided PICC line can be seen overlying the superior aspect of the superior vena cava. Given the curve at the tip of the catheter, concern is raised that the tip is within the azygos vein. - Please consider a follow-up lateral view versus CT for further evaluation. Labs 12/15/24 05:04 12/16/24 06:00 Labs: Laboratory Results - last 24 hr 12/16/24 06:00 Sodium 131 L Potassium 3.4 Chloride 102 Carbon Dioxide 26 BUN 15 Creatinine 0.49 L Estimated GFR > 60 BUN/Creatinine Ratio 30.6 H Glucose 94 Calcium 7.2 L Magnesium 1.8 PFSH Social History household members: children alcohol intake: current Assessment & Plan Assessment & Plan narrative: Gastric perforation with contents spilled into the peritoneal cavity status post surgical repair and washout per surgery stewardship on antibiotics per surgery * Co-management per surgery and ecosystem ecology professor of shock, fluids, antibiotics Advanced liver disease secondary to excessive alcohol use with coagulopathy hyperbilirubinemia and possibly portal hypertension * Careful calculated doses of medications with hepatic metabolism Alcohol use disorder (alcoholism) * Moderate risk of acute withdrawal; this may be quite problematic in the setting of shock * If signs or symptoms of withdrawal manifest would have low threshold for management with Precedex * Significant risk if withdrawal occurs of severe hemodynamic stabilization * Acute treatment with intravenous thiamine for Wernicke-Korsakoff syndrome prophylaxis or perhaps even treatment * If patient survives this hospitalization may need to discuss inpatient rehabilitation and 12 step recovery Depression: * Psychiatric consultation with Dr. Hinds planned Thursday DVT prophylaxis * SCDs only and per surgery stewardship Code status: * Full code Quality VTE Deep Vein Thrombosis/Pulmonary Embolism Present on Admission: No [facility] [employer] Document charge(s): No Charge Codes Subsequent inpatient/observation care: 27141
--- NOTE | 2024-12-16 14:44 | OT.IP.EVAL ---
Current Diagnoses Chronic or unspecified duodenal ulcer with perforation (12/13/24) Other specified symptoms and signs involving the digestive system and abdomen (12/13/24) Surgery Performed Operation Date: 12/13/24 19:00 Actual Procedures p Exploratory Laparotomy with omental patch of perforated ulcer, abdominal washout - Golden Issa MD Occupational Therapy Inpatient Evaluation/Re-Eval M1 PT/OT-IP Prior Functional Status Start: 12/15/24 13:11 Freq: NEEDED Status: Active Protocol: Document 12/16/24 11:54 [facility] (Rec: 12/16/24 14:44 [facility] Desktop) Medical Review Prior Functional Status Medical History Yes Reviewed Communication agreeable to do PT Mobility and Gait pt stated that she was modified independent with all mobilities and ambulation without AD Activities of Daily Pt states just been eating from cans recently. Pt states does Living and IADL's not have meds and pays her own bills. Pt states able to do ADL needs but needing increased time due to abdominal pain. Social History Household Members children Living Arrangements House Number of Floors ( One Floor Floors) Number of Stairs To ramp to enter Enter/Railing? 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 Additional Social pt lives with her daughter but daughter works and not History Comment available to provide assistance M2 OT-IP Current Condition Start: 12/16/24 14:17 Freq: Status: Active Protocol: Document 12/16/24 11:54 [facility] (Rec: 12/16/24 14:44 [facility] Desktop) Occupational Therapy Current Condition Current Condition Evaluation Date 12/16/24 Treatment Diagnosis Perforated Duodenal ulcer,s/p ex-lap Diagnosis Onset Date 12/13/24 Post Operative Precautions Abdominal Surgery Log Roll,Lifting Restrictions,Gait Belt above Precautions Incisional Area M3 OT- IP Subjective and Pain Start: 12/16/24 14:17 Freq: Status: Active Protocol: Document 12/16/24 11:54 [facility] (Rec: 12/16/24 14:44 [facility] Desktop) OT- Subjective Occupational Therapy Visit Type Type Initial Evaluation Visit Start Time 11:54 Visit Stop Time 12:59 Occupational Therapy Visit Comments Patient Comments Pt needing lots of encouragement but agreed to get up to use the BSC. Patient/Caregiver Pt not able to state at this time. Goals OT Pain Assessment Pain When Pain Assessed During Mobility Pain Present Pain Present Pain Reported Location Abdomen Intensity 6 Scale Used Numeric (0 - 10) M4 OT- IP ADL's Start: 12/16/24 14:17 Freq: Status: Active Protocol: Document 12/16/24 11:54 [facility] (Rec: 12/16/24 14:44 [facility] Desktop) OT MSH-[id number] Comments OT Self-Feeding Pt a bit little shaky with her right hand to be able to Comments spoon jello to her mouth. OT ADL-Grooming General Evaluation Grooming Ability Standby Assistance Comments OT Grooming Comments Pt able to wash her hands with wipes after set-up. OT ADL-Oral Care Comments Oral Care Comments Not performed. OT ADL-Dressing General Eval Lower Body Dressing Maximum Assistance Ability Areas Needing Underpants/Brief,Socks Assistance Comments OT Dressing Comments Able to practice use of economic development director and sock aid for LB dressing needs. OT ADL-Toileting General Evaluation Toileting Ability Maximum Assistance Areas Needing Manage Clothing,Perform Perineal Hygiene Assistance Comments OT Toileting Pt able to wipe while seated but needing assist to Comments stand and for brief management needs. OT ADL-Bathing Comments OT Bathing Comments Use of rolling shower chair more appropriate at this time due to decreased balance. M5 OT- IP IADL's Start: 12/16/24 14:17 Freq: Status: Active Protocol: Document 12/16/24 11:54 [facility] (Rec: 12/16/24 14:44 [facility] Desktop) OT-Instrumental Activities of Daily Living Deficits IADL Deficits Deficits Identified Home Safety Awareness Home Safety Comments Pt has flat affect and at this time unsure of her goals or what she wants to do. Medication Management Medication Pt states did not take any medications prior. Management Comments Money Management Money Management Pt would benefit from assist. Comments Meal Preparation Meal Preparation Pt will benefit from assist. Comments Host Host Pt will benefit from assist. Comments Driving Driving Caregiver Provides Assist M6 OT- IP Functional Cognition Start: 12/16/24 14:17 Freq: Status: Active Protocol: Document 12/16/24 11:54 [facility] (Rec: 12/16/24 14:44 [facility] Desktop) Cognitive Factors Limiting Selfcare Function Cognitive Ability Level of Alertness Alert Patient Orientation Name,Age,Birthday,Month,Date,Year,Day of Week,Place, Situation Attention Span Capable of Focused Attention,Capable of Sustained Ability Attention Ability to Follow Able to Follow One Step Commands Commands Memory Description Short Term Impaired Executive Function Unable to Remember Details Ability Cognitive Tests SLUMS Pt scored 18/30 which implies possible dementia. Pt would benefit from SLUMS again when feeling better as pt a bit flat with affect. Pt also needing lots of encouragement to participate and initiate movements. Pt not able to calculate 100-23, able to recall 2/5 words after time passed, not able to state 4 digit number backwards, not able to write the numbers on the clock and hour hands correctly after time given, and able to answer 3/4 questions right after paragraph read. Cognitive Comments Cognitive Assessment Pt needing safety cue to push up from the bed and reach Comments back to the BSC, and recliner. Pt needing encouragement to think of her goals and also encouraged her to eat. OT- Vision and Hearing OT- Vision Assessment Vision History Cataracts Visual Acuity Glasses All The Time Visual Attentiveness WFL Occular Pursuits WFL Visual Convergence WFL Visual Mackey WFL M7 OT- IP Mobility and Balance Start: 12/16/24 14:17 Freq: Status: Active Protocol: Document 12/16/24 11:54 [facility] (Rec: 12/16/24 14:44 [facility] Desktop) OT- Bed Mobility Assessment Supine to Sit Supine to Sit Assist Maximum Assistance OT-Transfer Assessment Sit to and From Stand Sit to and from Maximum Assistance,1 Person Assistance,2 Person Stand Assistance Transfers Transfer Ability Maximum Assistance,1 Person Assistance,2 Person Assistance Technique Transfer Destination Bed,Bedside Commode,Chair Transfer Technique Stand Step Pivot Devices Transfer Assistive Gait Belt,Front Wheeled Walker Devices Comments Mobility Comments MAX AX1 to help get up from the bed. MAX AX 1-2 to stand and transfer as pt tires brady and needing assist to guide her hips, FWW and for balance. At this time transfer only. OT- Balance Assessment Sitting Balance and Reactions Static Sitting Fair Balance Ability Dynamic Sitting Fair Balance Ability Standing Balance and Reactions Static Standing Poor Balance Ability Dynamic Standing Poor Balance Ability M8 OT- IP Objective Assessments Start: 12/16/24 14:17 Freq: Status: Active Protocol: Document 12/16/24 11:54 [facility] (Rec: 12/16/24 14:44 [facility] Desktop) OT Gross Range of Motion Upper Extremity Range of Motion ROM Impairments Decreased at end ROM due to abdominal pain OT Strength Comments Strength Comments BUE hand at least 4-/5, NT shoulders due to abdominal sx. OT- Coordination Assessment Upper Extremity Finger to Nose Test Left UE Impaired Comments Coordination Pt very slow with diadochokinesis. Pt a bit shaky with Comments her right hand when trying to feed herself. M9 OT- IP Assessment and Plan Start: 12/16/24 14:17 Freq: Status: Active Protocol: Document 12/16/24 11:54 [facility] (Rec: 12/16/24 14:44 [facility] Desktop) OT Summary Assessment and Plan Potential Rehabilitation Good Potential Analytic Complexity Moderate at Evaluation Summary OT Impairments Pain,Strength,Balance,Coordination,Functional Cognition ,Functional Mobility,Self-Feeding,Grooming,Dressing, Toileting,Bathing,Toilet Transfers,Shower Transfers, Activity Tolerance Progress Towards Slow Progress due to Pain,Slow Progress due to Medical Goals Issues,Slow Progress due to Activity Tolerance,Slow Progress due to Cognition Assessment Summary Pt MOD complexity and main barriers are pain, decreased balance, endurance, strength, and now needing 2 person assist for ADL and mobility needs. Pt prior to perforated duodenal ulcer was MOD I with ADL and mobility needs. Pt will benefit from skilled rehab. Pt scored 18/30 which implies dementia, however good to reassess when pt feeling better or try ACL. Goals Self-Feeding Goal Independent Grooming Goal Independent Dressing Goal Independent Toileting Goal Independent Bathing Goal Independent Toilet Transfer Goal Independent Shower Transfer Goal Standby Assistance Days to Meet Goals 25 Frequency of Treatment Other frequency 5x/week Treatment Plan OT Treatment Plan ADL Training,Functional Cognition Training,Functional Mobility,Patient/Family Education,Discharge Planning Other Treatment reassess SLUMS or do ACL, practice LB dressing Recommendations and equipment Next Treatment Focus Discharge Recommendations OT Discharge SNF Rehab Recommendations Transportation Needs Wheelchair/Cabulance at Discharge
--- NOTE | 2024-12-16 17:09 | P.PN_ITS ---
Subjective Subjective Date Patient Seen: 12/16/24 Time Patient Seen: 17:00 Interval history: Doing well No major changes Exam Vital Signs (past 8 hours): - 12/16/24 09:30 12/16/24 10:00 12/16/24 10:30 Temperature Pulse Rate 74 83 74 Respiratory Rate 17 28 H 19 Blood Pressure Pulse Oximetry 98 98 98 12/16/24 11:00 12/16/24 11:30 12/16/24 12:00 Temperature 97.3 F L Pulse Rate 85 74 Respiratory Rate 22 17 Blood Pressure Pulse Oximetry 99 99 12/16/24 12:00 12/16/24 12:01 12/16/24 12:01 Temperature Pulse Rate 89 88 Respiratory Rate 26 H 25 H Blood Pressure 117/59 L Pulse Oximetry 97 98 12/16/24 12:18 12/16/24 12:18 12/16/24 12:31 Temperature Pulse Rate 99 H 79 Respiratory Rate Blood Pressure 117/66 Pulse Oximetry 88 L Oxygen Delivery Method Nasal Cannula Oxygen Flow Rate 0 Narrative Exam Narrative: Abdomen soft, nontender Drains are serous with no signs of bile Objective Labs 12/15/24 05:04 12/16/24 06:00 Labs: Laboratory Results - last 24 hr 12/16/24 06:00 Sodium 131 L Potassium 3.4 Chloride 102 Carbon Dioxide 26 BUN 15 Creatinine 0.49 L Estimated GFR > 60 BUN/Creatinine Ratio 30.6 H Glucose 94 Calcium 7.2 L Magnesium 1.8 PFSH Social History household members: children alcohol intake: current Assessment & Plan Assessment and plan (1) Duodenal ulcer, perforated: Status: Acute Plan We cannot perform fluoroscopy tomorrow since we have no radiologist in house so a CT scan with oral contrast will be ordered for tomorrow AM. If no evidence of leak she can advance her diet and we can stop antibiotics. Time-Based Coding :: [TOTAL MINUTES] spent with patient and on the chart (including review of chart, obtaining history, exam, reviewing outside data, placing orders, documenting exam and treatment plan, and counseling patient) on [DATE]. Quality VTE Deep Vein Thrombosis/Pulmonary Embolism Present on Admission: No [facility] PROF[facility] [employer] Document charge(s): No
--- NOTE | 2024-12-16 18:16 | PC.NURSE ---
Patient up with physical therapy and OT today, she sat up in the recliner chair for about 2 hours. She is more awake and talking more. Tolerating some clear liquids. Dressing to ml and r and left sides of abdomen cdi. Patient has 2 ANTOINETTE drains that are putting out a good amount of ss drainage. She seems to be in better spirits today and is resting comfortably. Using purewick to void and putting out yellow urine. IVF infusing at 75cc/hr and patient is getting iv antibiotics. She had her thiamine infusion and also got 2 potassium infusions. She tolerated both well.
[2024-12-17] VITALS: BP 115/58; PULSE 80; RESP 24; O2SAT 96
[2024-12-17 02:33] VITALS: BP 117/63; PULSE 81; RESP 20; TEMP 36.4; O2SAT 96
--- NOTE | 2024-12-17 03:09 | PC.NURSE ---
Assumed care for this patient at 0230.
[2024-12-17] MEDS: THIAMINE 500 MG in SODIUM CHLORIDE 0.9% 100 ML 420 MG IV ×3 (05:00→21:43)
[2024-12-17] MEDS: PIPERACILLIN/TAZO 3.375 GM in SODIUM CHLORIDE 0.9% 100 ML IV ×3 (05:13→20:07)
[2024-12-17] MEDS: MICAFUNGIN 100 MG in SODIUM CHLORIDE 0.9% 100 ML IV (05:13)
[2024-12-17 05:17] LABS: Blood Urea Nitrogen 11 mg/dL (7-17); Calcium 7.4 mg/dL (8.4-10.2); Carbon Dioxide 27 mmol/L (22-32); Chloride 103 mmol/L (98-107); Estimated Glomerular Filt Rate > 60 mL/min (>60); Glucose 75 mg/dL (70-99); HEMOLYSIS < 15 (0-50); Magnesium 1.6 mg/dL (1.6-2.3); Potassium 3.3 mmol/L (3.4-5.1); Sodium 131 mmol/L (137-145)
[2024-12-17 09:02] VITALS: BP 109/69; PULSE 88; RESP 17; TEMP 36; O2SAT 97
--- NOTE | 2024-12-17 09:08 | DI.CT.S_ITS ---
PROCEDURE: CT ABDOMEN PELVIS W CON INDICATIONS: Please evaluate for leak at duodenum TECHNIQUE: Oral contrast was given in this patient. After the administration of intravenous contrast, axial sections acquired from the lung bases to the pubic symphysis. Coronal and sagittal reformats were performed. For radiation dose reduction, the following was used: automated exposure control, adjustment of mA and/or kV according to patient size. COMPARISON: [facility], CT, CT ABDOMEN PELVIS W CON, 12/13/2024, 15:39. FINDINGS: Image quality: Diagnostic. Lower Chest: There is a central line seen, with the tip within the inferior aspect of the superior vena cava. Small bilateral pleural effusions are seen, with overlying atelectasis. ABDOMEN: Liver: No solid mass. Diffuse fatty liver infiltration is noted. Gallbladder: A gallstone is seen within the gallbladder. Biliary ducts: No biliary dilation. Pancreas: No ductal dilation. Spleen: Size is within normal limits. Adrenal Glands: No adrenal nodules. Kidneys and Ureters: No hydronephrosis. No solid mass. No complex renal cystic lesion which requires follow up. Bowel and peritoneum: In this patient with this given history, scrutiny is given to the duodenum. There is thickening and irregularity seen involving the proximal duodenum. No findings of extravasation oral contrast can be seen. The previously seen upper abdominal gas is no longer definitely seen. There is a mild amount of dependently layering free fluid, which is clearly improved compared to the prior examination. Upper abdominal drains can be seen. No dilated loops of small bowel are seen. Colonic diverticulosis is seen, without findings of active diverticulitis. The colon is relatively decompressed. Ventral Wall: No significant ventral hernia. Anasarca can be seen. Abdominal Nodes: No retroperitoneal or mesenteric adenopathy by size criteria. Vessels: Aorta and inferior vena cava are normal in size. PELVIS: Pelvic Organs: No adnexal masses are seen on either side. Bladder: No bladder wall thickening, accounting for underdistention. Pelvic Nodes: No enlarged lymph nodes. Miscellaneous: No inguinal hernias are seen. Bones: No aggressive osseous abnormality. Generalized bony degenerative changes are seen. IMPRESSION: No findings of extraluminal contrast can be seen within the region of the duodenum. No findings of bowel leak can be seen elsewhere. Interval postoperative change, with resolution of the previously seen peritoneal gas. There is improved free fluid seen within the peritoneal cavity. Upper abdominal drains are seen. Small bilateral pleural effusions. Anasarca. Additional findings: Central line tip within the inferior aspect of the superior vena cava Fatty liver infiltration Gallstone Dictated by: Art Cee M.D. on 12/17/2024 at 11:02 Approved by: Art Cee M.D. on 12/17/2024 at 11:07
[2024-12-17] MEDS: ENOXAPARIN 40 MG/0.4 ML SYRINGE SUBCUT (09:36)
[2024-12-17] MEDS: MAGNESIUM SULFATE 2 GM/50 ML PIGGYBACK IV (09:36)
[2024-12-17] MEDS: HYDROCODONE/ACET 5/325 TABLET 2 TAB PO ×2 (09:36→15:17)
[2024-12-17] MEDS: SODIUM CHLORIDE 0.9% FLUSH 10 ML IV ×2 (09:36→20:23)
[2024-12-17] MEDS: PANTOPRAZOLE 40 MG VIAL IV (09:36)
[2024-12-17] MEDS: POTASSIUM CHLORIDE 20 MEQ TAB 40 MEQ PO ×2 (09:52→15:20)
--- NOTE | 2024-12-17 10:11 | P.PN_ITS ---
Subjective Subjective Date Patient Seen: 12/17/24 Time Patient Seen: 10:10 Interval history: Patient is a 64-year-old white female postoperative day 4. With Dr. Issa for a perforated duodenal ulcer. Patient states she still has some abdominal pain is passing some diarrhea is undergoing a Gastrografin study to make sure that the anastomotic repair is stable. Patient very slow to answer questions. Morning laboratory shows a sodium of 131 potassium 3.3 chloride 103 bicarb is 27 BUN of 11 creatinine 0.47 red blood sugar 75. Morning vitals. Temperature is 96.8? pulse 88 respirations 17 BP is 109/69 SaO2 is 97% ANTOINETTE output combined was 130 cc clear yellow. Heart regular rate and rhythm without murmurs. Lungs are clear diminished in the bases no rales rhonchi or wheezes noted. Abdomen is soft slightly distended incision is clean and dry no signs of infection or inflammation is noted. Good active bowel sounds are noted. No masses or peritoneal signs. Impression: Postop day 4. Exploratory laparotomy with Sonu patch repair of duodenal ulcer Patient undergoing Gastrografin study to rule out leak Plan: We will follow the x-ray if no signs of leak we will go ahead and advance patient's diet encourage activity we will follow patient for Dr. Issa. We will recheck laboratory in the morning. All questions were answered the patient's satisfaction. Exam Vital Signs (past 8 hours): - 12/17/24 02:33 12/17/24 09:02 Temperature 97.6 F 96.8 F L Pulse Rate 81 88 Respiratory Rate 20 17 Blood Pressure 117/63 109/69 Pulse Oximetry 96 97 Oxygen Flow Rate 0 0 Oxygen Delivery Method Room Air Oxygen Flow Rate 0 Objective Labs 12/15/24 05:04 12/17/24 04:45 Labs: Laboratory Results - last 24 hr 12/17/24 04:45 Sodium 131 L Potassium 3.3 L Chloride 103 Carbon Dioxide 27 BUN 11 Creatinine 0.47 L Estimated GFR > 60 BUN/Creatinine Ratio 23.4 H Glucose 75 Calcium 7.4 L Magnesium 1.6 PFSH Social History household members: children alcohol intake: current Assessment & Plan Time-Based Coding :: [TOTAL MINUTES] spent with patient and on the chart (including review of chart, obtaining history, exam, reviewing outside data, placing orders, documenting exam and treatment plan, and counseling patient) on [DATE]. 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
--- NOTE | 2024-12-17 10:54 | P.PN_ITS ---
Subjective Subjective Date Patient Seen: 12/17/24 Time Patient Seen: 09:40 Interval history: History of present illness: 64-year-old female who consumes (4) 750 mL bottles of Listerine a week (27% alcohol) was admitted to general surgery service underwent emergent surgical repair of perforated gastric ulcer complicated by hypotensive shock managed in the intensive care unit. I was asked to consult regarding management of alcohol use disorder with end- organ injury during this hospitalization Hospital course has been characterized by successful repair of gastric perforation and management operative management of abdominal contents and hypotensive shock with pressors IV fluid resuscitation and antibiotics Findings significant regarding he has a white blood count of 9.8 with 87% neutrophils, PT INR 1.5 sodium 128 BUN 44 creatinine 1.57 Total bilirubin 2.8 AST [address] abdomen and pelvis shows a large lobulated liver consistent with hepatic steatosis 8: The patient appears comfortable, reporting ongoing abdominal pain, though was able to advance to a clear liquid diet. 2: She reports ongoing persistent abdominal pain. She said she has not passed flatus. ANTOINETTE drains show serous to serosanguineous output. Follow-up CT pending today. Exam Vital Signs (past 8 hours): - 12/17/24 09:02 Temperature 96.8 F L Pulse Rate 88 Respiratory Rate 17 Blood Pressure 109/69 Pulse Oximetry 97 Oxygen Flow Rate 0 Oxygen Delivery Method Room Air Oxygen Flow Rate 0 Narrative Exam Narrative: Chronically ill-appearing female with muscle wasting HEENT unremarkable, mucous membranes pink and moist Heart regular rate and rhythm Lung clear to auscultation Abdomen tender no bowel sounds nondistended, incision appears clean, dry and intact, víctor in place, ANTOINETTE drain x2 in place with serosanguineous output Extremities muscle wasting and 1+ edema Objective Imaging Abdomen pelvis CT 12/13/2024: : Radiologist's impression: 1. Large amount of abdominal and pelvic free fluid with significant free air as described above. 2. Significant distal gastric wall thickening and wall thickening involving proximal to mid duodenum with anterior proximal duodenal wall defect and adjacent air concerning for perforated duodenal ulcer. 3. No significant small bowel or colon wall thickening. Distal esophageal wall thickening concerning for mild esophagitis. 4. Severe hepatic steatosis, no discrete hepatic lesion. 5. Cholelithiasis without CT evidence of acute cholecystitis. 6. Small amount of right pleural effusion and right basilar atelectasis. Chest xray 12/14/2024:: Radiologist's impression: The tip of the right-sided PICC line can be seen overlying the superior aspect of the superior vena cava. Given the curve at the tip of the catheter, concern is raised that the tip is within the azygos vein. - Please consider a follow-up lateral view versus CT for further evaluation. Labs 12/15/24 05:04 12/17/24 04:45 Labs: Laboratory Results - last 24 hr 12/17/24 04:45 Sodium 131 L Potassium 3.3 L Chloride 103 Carbon Dioxide 27 BUN 11 Creatinine 0.47 L Estimated GFR > 60 BUN/Creatinine Ratio 23.4 H Glucose 75 Calcium 7.4 L Magnesium 1.6 PFSH Social History household members: children alcohol intake: current Assessment & Plan Assessment & Plan narrative: Gastric perforation with contents spilled into the peritoneal cavity status post surgical repair and washout 12/13/2024 per surgery on antibiotics per surgery * Co-management per surgery. * Repeat CT plan today Advanced liver disease secondary to excessive alcohol use with coagulopathy hyperbilirubinemia and possibly portal hypertension * Careful calculated doses of medications with hepatic metabolism * Physical therapy consulted Alcohol use disorder (alcoholism) * No evidence of alcohol withdrawal. * Continue intravenous thiamine for Wernicke-Korsakoff syndrome prophylaxis * Anticipate inpatient rehabilitation and substance abuse recovery Depression: * Psychiatric consultation with Dr. 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
--- NOTE | 2024-12-17 12:53 | PT-IP ANOTE ---
checked on pt this morning and refused PT. pt stated that she has been up on the chair this morning and went for CT scan and is tired and does not want to do PT. informed pt that PT will check back in the afternoon.
[2024-12-17 13:00] VITALS: BP 103/66; PULSE 74; RESP 16; TEMP 35.8; O2SAT 99
--- NOTE | 2024-12-17 14:45 | PT.IPTN ---
Current Diagnoses Chronic or unspecified duodenal ulcer with perforation (12/13/24) Other specified symptoms and signs involving the digestive system and abdomen (12/13/24) Surgery Performed Operation Date: 12/13/24 19:00 Actual Procedures p Exploratory Laparotomy with omental patch of perforated ulcer, abdominal washout - Golden Issa MD Physical Therapy Treatment Note M2 PT-IP Current Condition Start: 12/15/24 13:11 Freq: NEEDED Status: Active Protocol: Document 12/16/24 11:40 AB (Rec: 12/16/24 13:49 AB [id number]) Physical Therapy Current Condition Current Condition Evaluation Date 12/16/24 Treatment Diagnosis perforated duodenal ulcer s/p ex-lap; difficulty in walking Onset Date 12/13/24 M3 PT-IP Subjective Start: 12/15/24 13:11 Freq: NEEDED Status: Active Protocol: Document 12/17/24 14:45 AB (Rec: 12/17/24 15:56 AB Desktop) Subjective Physical Therapy Visit Type Type Treatment Note Visit Start Time 14:45 Visit Stop Time 15:15 Number of LIVESTOCK AGENT Visits 0 Physical Therapy Visit Comments Patient Comments agreed to get up Therapy Pain Assessment Pain When Pain Assessed At Rest Pain Present Pain Present Pain Reported Location Abdomen Scale Used pain scale not stated Pain Management Distraction,Modification of Treatment,Re-positioning, Techniques Timing of Activity with Medications M4 PT-IP Mobility and Gait Start: 12/15/24 13:11 Freq: NEEDED Status: Active Protocol: Document 12/17/24 14:45 AB (Rec: 12/17/24 15:56 AB Desktop) PT-Bed Mobility Assessment Rolling Type of Rolling Roll to Left Level of Assist Maximal Assistance Supine to Sit Supine to Sit Maximum Assistance,1 Person Assistance,Head of Bed Elevated,Bedrails PT-Transfer Assessment Sit to and From Stand Sit to and from Maximum Assistance,1 Person Assistance,2 Person Stand Assistance,Use of Upper Extremities Equipment Transfer Assistive Gait Belt,Front Wheeled Walker Device Orthotic/Prosthetic No Devices or Brace: Transfers Transfer Destination Chair Transfer Technique Stand Step Pivot Transfer Ability Level of Assist Maximum Assistance,1 Person Assistance,2 Person Assistance,Use of Upper Extremities Comments Mobility Comments pt in bed. pt agreed to do PT but needed encouragement . log roll supine to sit max A and max cues. pt used bed rail to assist. able to sit on EOB CGA. sit to stand max A x 1-2 and max cues and step transfer to chair using FWW max A and max cues. BP: 107/63. pt rested. sit to stand from chair max A x 1-2 and max cues and instructed to ambulate but pt stated that she is beginning to do a BM. sat pt back on chair. NAC in room and set up bedside commode. sit to stand again max A x 1-2 and max cues and pt step transfer to commode using FWW max A x 1-2 and max cues. Needed assist with brief management. pt needing to use the toilet for awhile. left pt with NAC. M5 PT-IP Objective Assessments Start: 12/15/24 13:11 Freq: NEEDED Status: Active Protocol: Document 12/16/24 11:40 AB (Rec: 12/16/24 13:49 AB [id number]) Orientation Orientation/Cognition Level of Alertness Alert Orientation Name,Place,Situation Language Function Hard of Hearing Ability Safety Awareness Decreased Safety Awareness Memory Description Short Term Impaired Gross Range of Motion Lower Extremity ROM Assessment Within Functional Limits Strength Lower Extremity Strength Assessment Bilaterally Impaired Hip 3+/5 Knee +/5 Sensation Assessment Sensation Gross Sensation WNL Muscle Tone Muscle Tone WNL Yes M6 PT-IP Treatment Start: 12/15/24 13:11 Freq: NEEDED Status: Active Protocol: Document 12/17/24 14:45 AB (Rec: 12/17/24 15:56 AB Desktop) Physical Therapy Treatment Education Education Provided Precautions,Safety M7 PT-IP Assessment and Plan Start: 12/15/24 13:11 Freq: NEEDED Status: Active Protocol: Document 12/17/24 14:45 AB (Rec: 12/17/24 15:56 AB Desktop) PT Summary Assessment and Plan Potential Rehabilitation Fair Potential Summary Impairments Pain,ROM,Strength,Balance,Coordination,Sensation,Tone, Cognition,Bed Mobility,Transfers,Gait,Activity Tolerance Progress Towards Slow Progress due to Pain,Slow Progress due to Medical Goals Issues,Slow Progress due to Activity Tolerance,Slow Progress - Other Assessment Summary pt requiring max A x 1-2 and cues with all tasks. Continues to demonstrate decrease activity tolerance. pt will require SNF rehab to improv strength and mobility. Goals Bed Mobility Goal Minimal Assistance Transfer Goal Minimal Assistance,Front Wheeled Walker Gait Goal Minimal Assistance,Front Wheel Walker Gait Distance 50 Other Goals improve bed mobility, transfers and ambulation using LRAD/without AD 150 ft mod I Days to Meet Goals 10 Frequency of Treatment Frequency Of Once a Day Treatment Treatment Plan Physical Therapy Bed Mobility Training,Transfer Training,Gait Training, Treatment Plan Therapeutic Exercise,Balance Retraining,Post Op Education,Discharge Planning,Hot or Cold Pack, Neuromuscular Re-ed,Coordination Retraining,Manual Therapy Precautions Abdominal Surgery Log Roll,Lifting Restrictions,Gait Belt above Precautions Incisional Area Recommendations To Nursing Amount of Assist 2 Person Assist Needed Discharge Recommendations PT Discharge SNF Rehab Recommendations Transportation Needs Wheelchair/Cabulance,Stretcher/Ambulance at Discharge - PT assist 2
[2024-12-17] MEDS: LACTATED RINGERS 1,000 ML 75 ML IV (15:15)
--- NOTE | 2024-12-17 15:38 | CM.DPNOTE ---
DCP Continued: [facility] per pt preference; sent via secure email. Plan: Pending SNF acceptance and [place] insurance authorization. CM Team will continue to follow for coordination of discharge plans. GHASSAN Roper
[2024-12-17 16:44] VITALS: BP 105/72; PULSE 88; RESP 14; TEMP 35.8; O2SAT 99
[2024-12-17 20:00] VITALS: BP 97/50; PULSE 80; RESP 19; TEMP 36.1; O2SAT 93
[2024-12-17] MEDS: ONDANSETRON 4 MG/2 ML INJ IV (20:08)
[2024-12-18] VITALS (7 sets, daily range): BP systolic 93–127; BP diastolic 57–69; PULSE 77–87; RESP 14–17; TEMP 35.8–36.6; O2SAT 95–99
[2024-12-18] MEDS: LACTATED RINGERS 1,000 ML 75 ML IV ×2 (02:47→17:48)
[2024-12-18] MEDS: PIPERACILLIN/TAZO 3.375 GM in SODIUM CHLORIDE 0.9% 100 ML IV ×3 (04:26→21:52)
[2024-12-18 04:39] LABS: Blood Urea Nitrogen 9 mg/dL (7-17); Calcium 7.2 mg/dL (8.4-10.2); Carbon Dioxide 23 mmol/L (22-32); Chloride 105 mmol/L (98-107); Estimated Glomerular Filt Rate > 60 mL/min (>60); Glucose 82 mg/dL (70-99); HEMOLYSIS < 15 (0-50); Potassium 3.7 mmol/L (3.4-5.1); Sodium 130 mmol/L (137-145)
[2024-12-18 04:47] LABS: Add Manual Diff / Slide Review NO; Hematocrit 29.4 % (36-46); Hemoglobin 10.4 g/dL (12.0-16.0); Lymphocytes Absolute Auto 800 /uL (1100-4500); Mean Corpuscular HGB Conc 35.4 % (30-36); Mean Corpuscular Hemoglobin 39.2 PG (26-34); Mean Corpuscular Volume 110.8 fL (80-100); Platelet Count 58 X10^3/uL (150-400)
[2024-12-18 05:07] LABS: Macrocytosis 1+
[2024-12-18 05:08] LABS: Anisocytosis 1+
[2024-12-18] MEDS: THIAMINE 500 MG in SODIUM CHLORIDE 0.9% 100 ML 420 MG IV ×3 (05:09→21:53)
[2024-12-18] MEDS: MICAFUNGIN 100 MG in SODIUM CHLORIDE 0.9% 100 ML IV (05:28)
--- NOTE | 2024-12-18 07:08 | PM.PN.IH.1 ---
Subjective Subjective Date Patient Seen: 12/18/24 Time Patient Seen: 07:10 Interval history: Patient is resting comfortably in bed postop day 5. Having Mild incisional discomfort but tolerated her diet well. Patient denies any nausea vomiting is very slow to progress. Patient had a CT with oral contrast no signs of leak at the duodenal ulcer repair. Patient's morning laboratory shows a WBC of 8.4 hemoglobin 10.4 hematocrit is 29.4 platelets are 58,000 sodium is 130 potassium 3.7 chloride 105 bicarb is 23 BUN of 9 creatinine 0.45 random blood sugar is 82. Vitals: Temperature is 97.0? pulse 81 respirations 17 BP is 114/62 Heart regular rate and rhythm without murmurs. Lungs are clear to auscultation no rales rhonchi or wheezes noted but diminished breath sounds are noted in the bases. Abdomen incision is clear no sign of infection or inflammation víctor are intact hypoactive bowel sounds. ANTOINETTE drainage is clear yellow Impression: Postop day 5. Exploratory laparotomy with repair of perforated duodenal ulcer with primary closure and Sonu patch I Dr. Issa History of drinking Listerine but apparently patient has a history of alcohol abuse. Chronic thrombocytopenia Plan: We will advance diet as tolerated we will discuss with hospitalist about treatment of the pleural effusions ascites and the chronic thrombocytopenia. No need for return to surgery at this time we will follow patient for in Dr. Issa is absence. Exam Vital Signs (past 8 hours): - 12/18/24 00:00 12/18/24 04:00 Temperature 97.2 F L 97.0 F L Pulse Rate 84 81 Respiratory Rate 17 17 Blood Pressure 127/63 114/62 Pulse Oximetry 98 98 Oxygen Delivery Method Room Air Oxygen Flow Rate 0 Objective Labs 12/18/24 04:15 12/18/24 04:15 Labs: Laboratory Results - last 24 hr 12/18/24 04:15 WBC 8.4 RBC 2.65 L Hgb 10.4 L Hct 29.4 L MCV 110.8 H MCH 39.2 H MCHC 35.4 RDW 12.8 Plt Count 58 L Neut % (Auto) 83.7 H Lymph % (Auto) 9.4 L [place] % (Auto) 6.2 Eos % (Auto) 0.6 L Baso % (Auto) 0.1 Neut # (Auto) 7000 Lymph # (Auto) 800 L [place] # (Auto) 500 Eos # (Auto) 0 Baso # (Auto) 0 Platelet Estimate Decreased on smear RBC Morphology See below Anisocytosis 1+ H Macrocytosis 1+ H Sodium 130 L Potassium 3.7 Chloride 105 Carbon Dioxide 23 BUN 9 Creatinine 0.45 L Estimated GFR > 60 BUN/Creatinine Ratio 20.0 Glucose 82 Calcium 7.2 L PFSH Social History household members: children alcohol intake: current Assessment & Plan Time-Based Coding :: [TOTAL MINUTES] spent with patient and on the chart (including review of chart, obtaining history, exam, reviewing outside data, placing orders, documenting exam and treatment plan, and counseling patient) on [DATE]. 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
[2024-12-18] MEDS: HYDROCODONE/ACET 5/325 TABLET 2 TAB PO ×3 (08:13→17:47)
[2024-12-18] MEDS: PANTOPRAZOLE 40 MG VIAL IV (08:14)
[2024-12-18] MEDS: SODIUM CHLORIDE 0.9% FLUSH 10 ML IV ×4 (08:14→21:57)
--- NOTE | 2024-12-18 11:07 | PT-IP ANOTE ---
PT reviews chart and pt discussed in rounds. Pt con't with platelets dropping and are 58 most recently. Spoke with nsg and checked in with pt. Pt is very lethargic and declines PT at this time. Con't PT efforts next date. Recommend OOB to chair with total lift at this time.
[2024-12-18] MEDS: SPIRONOLACTONE 25 MG TABLET 50 MG PO (13:48)
[2024-12-18] MEDS: IBUPROFEN 600 MG TABLET PO (13:54)
[2024-12-18] MEDS: ONDANSETRON 4 MG/2 ML INJ IV (13:59)
--- NOTE | 2024-12-18 14:42 | P.PN_ITS ---
Subjective Subjective Date Patient Seen: 12/18/24 Time Patient Seen: 14:40 Interval history: History of present illness: 64-year-old female who consumes (4) 750 mL bottles of Listerine a week (27% alcohol) was admitted to general surgery service underwent emergent surgical repair of perforated gastric ulcer complicated by hypotensive shock managed in the intensive care unit. I was asked to consult regarding management of alcohol use disorder with end- organ injury during this hospitalization Hospital course has been characterized by successful repair of gastric perforation and management operative management of abdominal contents and hypotensive shock with pressors IV fluid resuscitation and antibiotics Findings significant regarding he has a white blood count of 9.8 with 87% neutrophils, PT INR 1.5 sodium 128 BUN 44 creatinine 1.57 Total bilirubin 2.8 AST [address] abdomen and pelvis shows a large lobulated liver consistent with hepatic steatosis 12/16: The patient appears comfortable, reporting ongoing abdominal pain, though was able to advance to a clear liquid diet. 12/17: She reports ongoing persistent abdominal pain. She said she has not passed flatus. ANTOINETTE drains show serous to serosanguineous output. Follow-up CT pending today. 12/18: CT unremarkable yesterday except stigmata of cirrhosis. No new events. Exam Vital Signs (past 8 hours): - 12/18/24 07:55 12/18/24 08:36 12/18/24 12:22 Temperature 96.9 F L 97.6 F 96.9 F L Pulse Rate 77 86 78 Respiratory Rate 15 15 16 Blood Pressure 93/57 L 112/64 109/61 Pulse Oximetry 96 95 97 Oxygen Flow Rate 0 0 0 Oxygen Delivery Method Room Air Oxygen Flow Rate 0 Narrative Exam Narrative: Chronically ill-appearing female with muscle wasting HEENT unremarkable, mucous membranes pink and moist Heart regular rate and rhythm Lung clear to auscultation Abdomen tender no bowel sounds nondistended, incision appears clean, dry and intact, víctor in place, ANTOINETTE drain x2 in place with serosanguineous output Extremities muscle wasting and 1+ edema Objective Imaging Abdomen pelvis CT 12/13/2024: : Radiologist's impression: 1. Large amount of abdominal and pelvic free fluid with significant free air as described above. 2. Significant distal gastric wall thickening and wall thickening involving proximal to mid duodenum with anterior proximal duodenal wall defect and adjacent air concerning for perforated duodenal ulcer. 3. No significant small bowel or colon wall thickening. Distal esophageal wall thickening concerning for mild esophagitis. 4. Severe hepatic steatosis, no discrete hepatic lesion. 5. Cholelithiasis without CT evidence of acute cholecystitis. 6. Small amount of right pleural effusion and right basilar atelectasis. Chest xray 12/14/2024:: Radiologist's impression: The tip of the right-sided PICC line can be seen overlying the superior aspect of the superior vena cava. Given the curve at the tip of the catheter, concern is raised that the tip is within the azygos vein. - Please consider a follow-up lateral view versus CT for further evaluation. Abdomen pelvis CT 12/17/2024:: Radiologist's impression: No findings of extraluminal contrast can be seen within the region of the duodenum. No findings of bowel leak can be seen elsewhere. Interval postoperative change, with resolution of the previously seen peritoneal gas. There is improved free fluid seen within the peritoneal cavity. Upper abdominal drains are seen. Small bilateral pleural effusions. Anasarca. Additional findings: Central line tip within the inferior aspect of the superior vena cava Fatty liver infiltration [facility] Labs 12/18/24 04:15 12/18/24 04:15 Labs: Laboratory Results - last 24 hr 12/18/24 04:15 WBC 8.4 RBC 2.65 L Hgb 10.4 L Hct 29.4 L MCV 110.8 H MCH 39.2 H MCHC 35.4 RDW 12.8 Plt Count 58 L Neut % (Auto) 83.7 H Lymph % (Auto) 9.4 L Hemphill % (Auto) 6.2 Eos % (Auto) 0.6 L Baso % (Auto) 0.1 Neut # (Auto) 7000 Lymph # (Auto) 800 L Hemphill # (Auto) 500 Eos # (Auto) 0 Baso # (Auto) 0 Platelet Estimate Decreased on smear RBC Morphology See below Anisocytosis 1+ H Macrocytosis 1+ H Sodium 130 L Potassium 3.7 Chloride 105 Carbon Dioxide 23 BUN 9 Creatinine 0.45 L Estimated GFR > 60 BUN/Creatinine Ratio 20.0 Glucose 82 Calcium 7.2 L PFSH Social History household members: children alcohol intake: current Assessment & Plan Assessment & Plan narrative: Gastric perforation with contents spilled into the peritoneal cavity status post surgical repair and washout 12/13/2024 per surgery on antibiotics per surgery * Co-management per surgery. 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 Alcohol use disorder (alcoholism) * No evidence of alcohol withdrawal. * Continue intravenous thiamine for Wernicke-Korsakoff syndrome prophylaxis * Anticipate inpatient rehabilitation and substance abuse recovery Depression: * Psychiatric consultation with Dr. Núñez planned Thursday DVT prophylaxis * SCDs only given thrombocytopenia. 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
[2024-12-18] MEDS: FUROSEMIDE 40 MG/4 ML VIAL IV (17:47)
--- NOTE | 2024-12-18 19:11 | PC.NURSE ---
Asked the pt if she wanted staff to give change of shift report at her bedside and pt declined the option tonight. Pt stated: No, it's going be a boring report.
[2024-12-19] VITALS: BP 101/61; PULSE 78; RESP 15; TEMP 36.2; O2SAT 97
[2024-12-19 04:00] VITALS: BP 107/55; PULSE 79; RESP 17; TEMP 36.6; O2SAT 99
[2024-12-19] MEDS: PIPERACILLIN/TAZO 3.375 GM in SODIUM CHLORIDE 0.9% 100 ML IV ×3 (04:14→21:23)
[2024-12-19 04:50] LABS: INR 1.4 (0.9-1.3); Prothrombin Time 15.5 SECONDS (9.4-12.5)
[2024-12-19 04:53] LABS: Add Manual Diff / Slide Review NO; Hematocrit 29.8 % (36-46); Hemoglobin 10.4 g/dL (12.0-16.0); Lymphocytes Absolute Auto 700 /uL (1100-4500); Mean Corpuscular HGB Conc 34.8 % (30-36); Mean Corpuscular Hemoglobin 38.8 PG (26-34); Mean Corpuscular Volume 111.3 fL (80-100); Platelet Count 57 X10^3/uL (150-400)
[2024-12-19 04:54] LABS: Alanine Aminotransferase 19 IU/L (<35); Albumin 1.7 g/dL (3.5-5.0); Albumin Globulin Ratio 0.7 (1.0-2.8); Alkaline Phosphatase 110 U/L (38-126); Blood Urea Nitrogen 6 mg/dL (7-17); Calcium 7.3 mg/dL (8.4-10.2); Carbon Dioxide 27 mmol/L (22-32); Chloride 105 mmol/L (98-107); Estimated Glomerular Filt Rate > 60 mL/min (>60); Globulin 2.5 g/dL (1.7-4.1); Glucose 82 mg/dL (70-99); HEMOLYSIS < 15 (0-50); Potassium 3.3 mmol/L (3.4-5.1); Sodium 131 mmol/L (137-145); Total Protein 4.2 g/dL (6.3-8.2)
[2024-12-19] MEDS: THIAMINE 500 MG in SODIUM CHLORIDE 0.9% 100 ML 420 MG IV (05:06)
[2024-12-19] MEDS: MICAFUNGIN 100 MG in SODIUM CHLORIDE 0.9% 100 ML IV (05:28)
[2024-12-19 05:30] LABS: Anisocytosis 1+; Macrocytosis 2+
--- NOTE | 2024-12-19 07:29 | PM.PN.IH.1 ---
Subjective Subjective Date Patient Seen: 12/19/24 Time Patient Seen: 07:30 Interval history: Patient is resting quietly in bed has a very flat affect. States she has tolerated diet well denies any abdominal pain. Patient states she is still very weak. Patient is postop day 6. Repair of perforated duodenal ulcer with primary closure and Sonu patch by Dr. Issa. Patient's morning laboratory shows WBC of 8.4 hemoglobin is 10.4 hematocrit is 29.8 platelets are 57,000 sodium is 131 potassium 3.3 chloride 105 bicarb is 27 BUN 6 creatinine 0.43 random blood sugar is 82 normal LFTs. Vitals: Temperature is 97.8? pulse 79 respirations 17 BP is 107/55 Heart regular rate and rhythm without murmurs lungs diminished in the bases poor inspiratory and expiratory effort poor chest wall motion noted. Abdomen incision is clean and dry no signs of infections changes no ecchymosis. ANTOINETTE drains are in place with clear fluid no masses or peritoneal signs. Impression: Postop day 6. Exploratory laparotomy with repair of perforated duodenal ulcer by Dr. Issa H&H stable but patient has a thrombocytopenia patient has a history of alcohol abuse but normal LFTs Plan: We will advance patient's diet will also work on pulmonary toilet with incentive spirometry medicine is diuresing the patient for the pleural effusions and also ascites. Also encourage ambulation if not able to we will have PT OT work with the patient if patient is not improving better may warrant a short course of rehab or senior living therapy. Exam Vital Signs (past 8 hours): - 12/19/24 00:00 12/19/24 04:00 Temperature 97.1 F L 97.8 F Pulse Rate 78 79 Respiratory Rate 15 17 Blood Pressure 101/61 107/55 L Pulse Oximetry 97 99 Oxygen Delivery Method Room Air Oxygen Flow Rate 0 Objective Labs 12/19/24 04:27 12/19/24 04:27 Labs: Laboratory Results - last 24 hr 12/19/24 04:27 WBC 8.4 RBC 2.68 L Hgb 10.4 L Hct 29.8 L MCV 111.3 H MCH 38.8 H MCHC 34.8 RDW 12.9 Plt Count 57 L Neut % (Auto) 85.8 H Lymph % (Auto) 8.0 L Spencer % (Auto) 5.7 Eos % (Auto) 0.4 L Baso % (Auto) 0.1 Neut # (Auto) 7200 H Lymph # (Auto) 700 L Spencer # (Auto) 500 Eos # (Auto) 0 Baso # (Auto) 0 RBC Morphology See below Anisocytosis 1+ H Macrocytosis 2+ H PT 15.5 H INR 1.4 H Sodium 131 L Potassium 3.3 L Chloride 105 Carbon Dioxide 27 BUN 6 L Creatinine 0.43 L Estimated GFR > 60 BUN/Creatinine Ratio 14.0 Glucose 82 Calcium 7.3 L Total Bilirubin 0.8 AST 26 ALT 19 Alkaline Phosphatase 110 Total Protein 4.2 L Albumin 1.7 L Globulin 2.5 Albumin/Globulin Ratio 0.7 L PFSH Social History household members: children alcohol intake: current Assessment & Plan Time-Based Coding :: [TOTAL MINUTES] spent with patient and on the chart (including review of chart, obtaining history, exam, reviewing outside data, placing orders, documenting exam and treatment plan, and counseling patient) on [DATE]. Quality VTE Deep Vein Thrombosis/Pulmonary Embolism Present on Admission: No [facility] PROFEE Viscose Department Worker Document charge(s): Yes
[2024-12-19 08:00] VITALS: BP 101/57; PULSE 78; RESP 16; TEMP 36.1; O2SAT 98
[2024-12-19] MEDS: FUROSEMIDE 40 MG/4 ML VIAL IV (10:12)
[2024-12-19] MEDS: SODIUM CHLORIDE 0.9% FLUSH 10 ML IV ×2 (10:12→21:23)
[2024-12-19] MEDS: SPIRONOLACTONE 25 MG TABLET 50 MG PO (10:12)
[2024-12-19] MEDS: PANTOPRAZOLE 40 MG VIAL IV (10:12)
[2024-12-19] MEDS: HYDROCODONE/ACET 5/325 TABLET 1 TAB PO (10:17)
--- NOTE | 2024-12-19 11:29 | P.PN_ITS ---
Subjective Subjective Date Patient Seen: 12/19/24 Interval history: Chief complaint: Perforated ulcer status post repair in a patient consuming excessive alcohol History of present illness: 64-year-old female who consumes (4) 750 mL bottles of Listerine a week (27% alcohol) was admitted to general surgery service underwent emergent surgical repair of perforated gastric ulcer complicated by hypotensive shock managed in the intensive care unit. I was asked to consult regarding management of alcohol use disorder with end- organ injury during this hospitalization Hospital course has been characterized by successful repair of gastric perforation and management operative management of abdominal contents and hypotensive shock with pressors IV fluid resuscitation and antibiotics Findings significant regarding he has a white blood count of 9.8 with 87% neutrophils, PT INR 1.5 sodium 128 BUN 44 creatinine 1.57 Total bilirubin 2.8 AST [address] abdomen and pelvis shows a large lobulated liver consistent with hepatic steatosis 12/16: The patient appears comfortable, reporting ongoing abdominal pain, though was able to advance to a clear liquid diet. 12/17: She reports ongoing persistent abdominal pain. She said she has not passed flatus. ANTOINETTE drains show serous to serosanguineous output. Follow-up CT pending today. 12/18: CT unremarkable yesterday except stigmata of cirrhosis. No new events. 12/19: Advanced to full liquids or issues in oatmeal this morning had some epigastric and pain and bloating afterwards which dissipated after about an hour. She is now cogent alert oriented an understanding of her situation bilirubin has de-escalated to 0.8 albumin still very low at 1.7 Review of systems: Patient alert and able to participate No chest pain shortness for breath No paresthesias or paresis No urinary symptom Physical exam: Chronically ill elderly female alert and cogent with improved facial swelling and muscle wasting HEENT facial swelling with typical stigmata of dissipation Heart sounds distant Lung sounds distant Abdomen tender no bowel sounds nondistended Extremities muscle wasting and 1+ edema x4 Assessment and plan: Gastric perforation with contents spilled into the peritoneal cavity status post surgical repair and washout 12/13/2024 per surgery on antibiotics per surgery * Co-management per surgery. * Diet advanced per surgery to full liquid Advanced liver disease With presumed cirrhosis secondary to excessive alcohol use with coagulopathy, ascites, hyperbilirubinemia and probable portal hypertension * Careful calculated doses of medications with hepatic metabolism * Liver enzymes improved * Physical therapy consulted * Start spironolactone 50mg daily for ascites. Alcohol use disorder (alcoholism) * No evidence of alcohol withdrawal. * Received intravenous thiamine for Wernicke-Korsakoff syndrome with uatsdin of cognitive function deescalate to oral thiamine * Anticipate inpatient rehabilitation and substance abuse recovery Severe protein calorie malnutrition with cachexia and resultant anasarca * Advanced diet as tolerated targeting repletion Depression: * Psychiatric consultation with Dr. Núñez requested Thursday DVT prophylaxis * SCDs only given thrombocytopenia. Code status: * Full code Disposition: * We will require skilled rehabilitation/senior care; * potential for fitness for deescalation to skilled facility 60% forecast for Thursday 12/21 * Diet advancement per surgery had 1st small meal of full liquid diet 12/19 which was followed by a liquid stool 35 minutes were involved in management of this patient including [id number] evaluation physical examination review of laboratory nodes consultation with specialists Dr. Núñez and review of objective laboratory and imaging Exam Vital Signs (past 8 hours): - 12/19/24 04:00 12/19/24 08:00 Temperature 97.8 F 97.0 F L Pulse Rate 79 78 Respiratory Rate 17 16 Blood Pressure 107/55 L 101/57 L Pulse Oximetry 99 98 Oxygen Flow Rate 0 Oxygen Delivery Method Room Air Oxygen Flow Rate 0 Objective Labs 12/19/24 04:27 12/19/24 04:27 Labs: Laboratory Results - last 24 hr 12/19/24 04:27 WBC 8.4 RBC 2.68 L Hgb 10.4 L Hct 29.8 L MCV 111.3 H MCH 38.8 H MCHC 34.8 RDW 12.9 Plt Count 57 L Neut % (Auto) 85.8 H Lymph % (Auto) 8.0 L Banks % (Auto) 5.7 Eos % (Auto) 0.4 L Baso % (Auto) 0.1 Neut # (Auto) 7200 H Lymph # (Auto) 700 L Banks # (Auto) 500 Eos # (Auto) 0 Baso # (Auto) 0 RBC Morphology See below Anisocytosis 1+ H Macrocytosis 2+ H PT 15.5 H INR 1.4 H Sodium 131 L Potassium 3.3 L Chloride 105 Carbon Dioxide 27 BUN 6 L Creatinine 0.43 L Estimated GFR > 60 BUN/Creatinine Ratio 14.0 Glucose 82 Calcium 7.3 L Total Bilirubin 0.8 AST 26 ALT 19 Alkaline Phosphatase 110 Total Protein 4.2 L Albumin 1.7 L Globulin 2.5 Albumin/Globulin Ratio 0.7 L PFSH Social History household members: children alcohol intake: current Assessment & Plan Time-Based Coding :: [TOTAL MINUTES] spent with patient and on the chart (including review of chart, obtaining history, exam, reviewing outside data, placing orders, documenting exam and treatment plan, and counseling patient) on [DATE]. Quality VTE Deep Vein Thrombosis/Pulmonary Embolism Present on Admission: No
--- NOTE | 2024-12-19 11:53 | PT.IPTN ---
Current Diagnoses Chronic or unspecified duodenal ulcer with perforation (12/13/24) Other specified symptoms and signs involving the digestive system and abdomen (12/13/24) Surgery Performed Operation Date: 12/13/24 19:00 Actual Procedures p Exploratory Laparotomy with omental patch of perforated ulcer, abdominal washout - Golden Issa MD Physical Therapy Treatment Note M2 PT-IP Current Condition Start: 12/15/24 13:11 Freq: NEEDED Status: Active Protocol: Document 12/16/24 11:40 AB (Rec: 12/16/24 13:49 AB [id number]) Physical Therapy Current Condition Current Condition Evaluation Date 12/16/24 Treatment Diagnosis perforated duodenal ulcer s/p ex-lap; difficulty in walking Onset Date 12/13/24 M3 PT-IP Subjective Start: 12/15/24 13:11 Freq: NEEDED Status: Active Protocol: Document 12/19/24 11:21 MB (Rec: 12/19/24 11:53 MB Desktop) Subjective Physical Therapy Visit Type Type Treatment Note Visit Start Time 11:21 Visit Stop Time 11:41 Number of FIRER TUNNEL KILN Visits 0 Physical Therapy Visit Comments Patient Comments Pt states she is on a bed bolanos, is agreeable to PT. Denies pain at rest and states she has it in her abdomen when she is up on her feet, but no c/o pain when up on her feet this date. Therapy Pain Assessment Pain When Pain Assessed At Rest Pain Present Pain Present Denied Pain M4 PT-IP Mobility and Gait Start: 12/15/24 13:11 Freq: NEEDED Status: Active Protocol: Document 12/19/24 11:21 MB (Rec: 12/19/24 11:53 MB Desktop) PT-Bed Mobility Assessment Rolling Type of Rolling Roll to Left Level of Assist Minimal Assistance Supine to Sit Supine to Sit Contact Guard Assistance,1 Person Assistance,Head of Bed Elevated,Bedrails Scooting Scooting to Edge of Contact Guard Assistance Bed PT-Transfer Assessment Sit to and From Stand Sit to and from Minimal Assistance,1 Person Assistance,Use of Upper Stand Extremities Equipment Transfer Assistive Gait Belt,Front Wheeled Walker Device Orthotic/Prosthetic No Devices or Brace: Transfers Transfer Destination Chair Transfer Technique Left side stepping Transfer Ability Level of Assist Minimal Assistance,1 Person Assistance,Use of Upper Extremities Comments Mobility Comments Max A to manage bed bolanos, hygiene and brief in bed. Otherwise, pt moves well with increased time and encouragement, HOB raised high, use of HOB and lower bed bed rails and mattress on max inflate. Gait Assessment Gait Gait Assistance Minimum Assistance,1 Person Assist Required: Distance (Feet) 1 Assistive Devices Assistive Device Gait Belt,Front Wheeled Walker Gait Deviations General Gait Pattern Decreased Stride Length,Flexed Trunk,Step-to Gait Factors Limiting Gait Function Factors Limiting Decreased Activity Tolerance,Difficulty Following Gait Function Directions,Poor Balance,Poor Safety Awareness PT-Balance Assessment Sitting Balance and Reactions Static Sitting Good Balance Ability Dynamic Sitting Fair Balance Ability Standing Balance and Reactions Static Standing Fair Balance Ability Dynamic Standing Fair Balance Ability Device Used RW M5 PT-IP Objective Assessments Start: 12/15/24 13:11 Freq: NEEDED Status: Active Protocol: Document 12/16/24 11:40 AB (Rec: 12/16/24 13:49 AB [id number]) Orientation Orientation/Cognition Level of Alertness Alert Orientation Name,Place,Situation Language Function Hard of Hearing Ability Safety Awareness Decreased Safety Awareness Memory Description Short Term Impaired Gross Range of Motion Lower Extremity ROM Assessment Within Functional Limits Strength Lower Extremity Strength Assessment Bilaterally Impaired Hip 3+/5 Knee +/5 Sensation Assessment Sensation Gross Sensation WNL Muscle Tone Muscle Tone WNL Yes M6 PT-IP Treatment Start: 12/15/24 13:11 Freq: NEEDED Status: Active Protocol: Document 12/19/24 11:21 MB (Rec: 12/19/24 11:53 MB Desktop) Physical Therapy Treatment Education Education Provided Safety M7 PT-IP Assessment and Plan Start: 12/15/24 13:11 Freq: NEEDED Status: Active Protocol: Document 12/19/24 11:21 MB (Rec: 12/19/24 11:53 MB Desktop) PT Summary Assessment and Plan Potential Rehabilitation Fair Potential Status of Condition Evolving at Evaluation Summary Impairments Pain,ROM,Strength,Balance,Coordination,Sensation,Tone, Cognition,Bed Mobility,Transfers,Gait,Activity Tolerance Progress Towards Progressing Toward Goals Goals Assessment Summary Arianna improves with bed mobility, transfers and stepping today. Recommend SNF at d/c. Goals Bed Mobility Goal Independent Transfer Goal Standby Assistance,Front Wheeled Walker Gait Goal Standby Assistance,Front Wheel Walker Gait Distance 100 Days to Meet Goals 10 Frequency of Treatment Frequency Of Once a Day Treatment Treatment Plan Physical Therapy Bed Mobility Training,Transfer Training,Gait Training, Treatment Plan Therapeutic Exercise,Balance Retraining,Post Op Education,Discharge Planning,Hot or Cold Pack, Neuromuscular Re-ed,Coordination Retraining,Manual Therapy Precautions Abdominal Surgery Log Roll,Lifting Restrictions,Gait Belt above Precautions Incisional Area Recommendations To Nursing Amount of Assist 2 Person Assist Needed Discharge Recommendations PT Discharge SNF Rehab Recommendations Transportation Needs Wheelchair/Cabulance at Discharge - PT assist x1-2
[2024-12-19 12:00] VITALS: BP 112/60; PULSE 70; RESP 16; TEMP 36.4; O2SAT 97
--- NOTE | 2024-12-19 13:15 | OT.IP.TRT ---
Current Diagnoses Chronic or unspecified duodenal ulcer with perforation (12/13/24) Other specified symptoms and signs involving the digestive system and abdomen (12/13/24) Surgery Performed Operation Date: 12/13/24 19:00 Actual Procedures p Exploratory Laparotomy with omental patch of perforated ulcer, abdominal washout - Sandra Issa MD Occupational Therapy Treatment Note M2 OT-IP Current Condition Start: 12/16/24 14:17 Freq: Status: Active Protocol: Document 12/16/24 11:54 [facility] (Rec: 12/16/24 14:44 [facility] Desktop) Occupational Therapy Current Condition Current Condition Evaluation Date 12/16/24 Treatment Diagnosis Perforated Duodenal ulcer,s/p ex-lap Diagnosis Onset Date 12/13/24 Post Operative Precautions Abdominal Surgery Log Roll,Lifting Restrictions,Gait Belt above Precautions Incisional Area M3 OT- IP Subjective and Pain Start: 12/16/24 14:17 Freq: Status: Active Protocol: Document 12/19/24 13:00 BENITA (Rec: 12/19/24 13:15 [facility] Desktop) OT- Subjective Occupational Therapy Visit Type Type Treatment Note Visit Start Time 11:21 Visit Stop Time 12:07 Occupational Therapy Visit Comments Patient Comments Pt agreed to get up to the recliner with therapy. Patient/Caregiver Pts dtr states that she wants her mother to be safe Goals when she returns home. She works and is concerned about her mother being able to safely transfer when she is not there. OT Pain Assessment Pain When Pain Assessed At Rest Pain Present Pain Present Denied Pain M4 OT- IP ADL's Start: 12/16/24 14:17 Freq: Status: Active Protocol: Document 12/19/24 13:00 BENITA (Rec: 12/19/24 13:15 [facility]NC[facility] Desktop) OT [id number] Comments OT Self-Feeding not observed Comments OT ADL-Grooming General Evaluation Grooming Ability Standby Assistance Comments OT Grooming Comments Pt brushes her hair on setup when up in chair OT ADL-Oral Care Comments Oral Care Comments pt declined OT ADL-Dressing General Eval Lower Body Dressing Minimal Assistance,Maximum Assistance Ability Areas Needing Underpants/Brief,Socks Assistance Comments OT Dressing Comments Pt pulls up her brief over her hips in standing with MIN A (full brief don required MAX A). OT educates pt on use of AE for LB dressing. Pt doffs socks with rock dust sprayer and MIN A. Pt dons sock with sock aid and MIN A . Pt practiced starting pants on her LEs using rock dust sprayer with MIN A. OT ADL-Toileting General Evaluation Toileting Ability Maximum Assistance Areas Needing Manage Clothing,Perform Perineal Hygiene Assistance Comments OT Toileting Pt required OT to wipe her buttocks following use of Comments bed bolanos while she was in sidelying. Pt also required OT to start pull up brief on B LES and to pull up to her upper thighs. OT ADL-Bathing Comments OT Bathing Comments Use of rolling shower chair more appropriate at this time due to decreased balance. M5 OT- IP IADL's Start: 12/16/24 14:17 Freq: Status: Active Protocol: Document 12/16/24 11:54 [facility] (Rec: 12/16/24 14:44 [facility] Desktop) OT-Instrumental Activities of Daily Living Deficits IADL Deficits Deficits Identified Home Safety Awareness Home Safety Comments Pt has flat affect and at this time unsure of her goals or what she wants to do. Medication Management Medication Pt states did not take any medications prior. Management Comments Money Management Money Management Pt would benefit from assist. Comments Meal Preparation Meal Preparation Pt will benefit from assist. Comments Engraver Seals Engraver Seals Pt will benefit from assist. Comments Driving Driving Caregiver Provides Assist M6 OT- IP Functional Cognition Start: 12/16/24 14:17 Freq: Status: Active Protocol: Document 12/19/24 13:00 BENITA (Rec: 12/19/24 13:15 [facility] Desktop) Cognitive Factors Limiting Selfcare Function Cognitive Ability Level of Alertness Alert Patient Orientation Name,Age,Birthday,Month,Date,Year,Day of Week,Place, Situation Attention Span Capable of Focused Attention,Capable of Sustained Ability Attention Ability to Follow Able to Follow One Step Commands Commands Memory Description Short Term Impaired Executive Function Unable to Remember Details Ability Cognitive Tests SLUMS Pt scored 23/30 which indicates mild neurocognitive disorder. Pt had difficulty with math, was able to remember 3 of 5 items in delayed recall, labeled the clock correctly but did not sandra the time correctly. Cognitive Comments Cognitive Assessment Pt needing safety cue to push up from the bed and reach Comments [place] [facility] [place]. Pt needing encouragement to think of her goals and to eat. OT- Vision and Hearing OT- Vision Assessment Vision History Cataracts Visual Acuity Glasses All The Time Visual Attentiveness WFL Occular Pursuits WFL Visual Convergence WFL Visual Mackey WFL M7 OT- IP Mobility and Balance Start: 12/16/24 14:17 Freq: Status: Active Protocol: Document 12/19/24 13:00 [facility] (Rec: 12/19/24 13:15 [facility] Desktop) OT- Bed Mobility Assessment Rolling Type of Rolling Roll to Left Level of Assistance Minimal Assistance,1 Person Assistance,Head of Bed Elevated,Bedrails Supine to Sit Supine to Sit Assist Contact Guard Assistance,1 Person Assistance,Head of Bed Elevated,Bedrails Scooting Scooting to Edge of Contact Guard Assistance Bed OT-Transfer Assessment Sit to and From Stand Sit to and from Minimal Assistance,1 Person Assistance,Use of Upper Stand Extremities Transfers Transfer Ability Minimal Assistance,1 Person Assistance,Use of Upper Extremities Technique Transfer Destination Chair Transfer Technique Stand Step Pivot Devices Transfer Assistive Gait Belt,Front Wheeled Walker Devices Orthotic/Prosthetic No Devices or Brace: Comments Mobility Comments Pt requires increased time to perform functional mobility as well as encouragement. OT- Balance Assessment Sitting Balance and Reactions Static Sitting Good Balance Ability Dynamic Sitting Fair Balance Ability Standing Balance and Reactions Static Standing Fair Balance Ability Dynamic Standing Fair Balance Ability M8 OT- IP Objective Assessments Start: 12/16/24 14:17 Freq: Status: Active Protocol: Document 12/16/24 11:54 [facility] (Rec: 12/16/24 14:44 [facility] Desktop) OT Gross Range of Motion Upper Extremity Range of Motion ROM Impairments Decreased at end ROM due to abdominal pain OT Strength Comments Strength Comments BUE hand at least 4-/5, NT shoulders due to abdominal sx. OT- Coordination Assessment Upper Extremity Finger to Nose Test Left UE Impaired Comments Coordination Pt very slow with diadochokinesis. Pt a bit shaky with Comments her right hand when trying to feed herself. M9 OT- IP Assessment and Plan Start: 12/16/24 14:17 Freq: Status: Active Protocol: Document 12/19/24 13:00 [facility] (Rec: 12/19/24 13:15 [facility] Desktop) OT Summary Assessment and Plan Potential Rehabilitation Good Potential Analytic Complexity Moderate at Evaluation Summary OT Impairments Pain,Strength,Balance,Coordination,Functional Cognition ,Functional Mobility,Self-Feeding,Grooming,Dressing, Toileting,Bathing,Toilet Transfers,Shower Transfers, Activity Tolerance Progress Towards Slow Progress due to Pain,Slow Progress due to Medical Goals Issues,Slow Progress due to Activity Tolerance,Slow Progress due to Cognition Assessment Summary Pt required increased time and encouragement overall, but she actively participated in all aspects of tx. Pt presents with a flat affect. Pts SLUM assessment improved from to . Pt would benefit from continued education of LB AE for LB dressing. Pt continues to be appropriate for skilled OT services. Cont per POC. Pt will benefit from skilled rehab to progress toward PLOF, especially since pt will be at home alone while her dtr works. Goals Self-Feeding Goal Independent Grooming Goal Independent Dressing Goal Independent Toileting Goal Independent Bathing Goal Independent Toilet Transfer Goal Independent Shower Transfer Goal Standby Assistance Days to Meet Goals 25 Frequency of Treatment Other frequency 5x/week Treatment Plan OT Treatment Plan ADL Training,Functional Cognition Training,Functional Mobility,Patient/Family Education,Discharge Planning Other Treatment practice LB dressing equipment Recommendations and Next Treatment Focus Discharge Recommendations OT Discharge SNF Rehab Recommendations Transportation Needs Wheelchair/Cabulance at Discharge
[2024-12-19] MEDS: POTASSIUM CHLORIDE 20 MEQ TAB 40 MEQ PO ×2 (13:31→18:35)
--- NOTE | 2024-12-19 15:24 | CM.DPNOTE ---
DCP note ACADEMIC SUPPORT SPECIALIST reviewed EMR per provider in morning rounds, another few days before medically stable to dc. will try and get Dr. Núñez to see her Thursday. CM team will start PASRR post Dr. Núñez rec. Per Bri at , can accept pt. Neema auth needed. cannot accept the IV micafungin pt is on- would need to be PO per Hospitalist, iv micafungin managed by surgery. per Dr. Issa, plan to stop that. ACADEMIC SUPPORT SPECIALIST faxed clinicals to [place] for SNF auth request. ACADEMIC SUPPORT SPECIALIST attempted to update pt in room. sleeping heavily allowed to rest. P: ideally dc to pending [facility] corners auth/medcial stability/[place] input. CM team will continue to follow closely for DCP coordination JOE Dalal
[2024-12-19 16:00] VITALS: BP 125/64; RESP 19; TEMP 36.2; O2SAT 95
[2024-12-19 21:00] VITALS: BP 99/41; PULSE 84; RESP 15; TEMP 36.2; O2SAT 97
[2024-12-20] VITALS: BP 107/69; PULSE 91; RESP 15; TEMP 36.2; O2SAT 95
[2024-12-20 05:00] VITALS: BP 102/57; PULSE 80; RESP 18; TEMP 36.1; O2SAT 95
[2024-12-20] MEDS: PIPERACILLIN/TAZO 3.375 GM in SODIUM CHLORIDE 0.9% 100 ML IV (05:26)
[2024-12-20 05:33] LABS: Blood Urea Nitrogen 5 mg/dL (7-17); Calcium 7.2 mg/dL (8.4-10.2); Carbon Dioxide 25 mmol/L (22-32); Chloride 104 mmol/L (98-107); Estimated Glomerular Filt Rate > 60 mL/min (>60); Glucose 74 mg/dL (70-99); HEMOLYSIS < 15 (0-50); Potassium 3.7 mmol/L (3.4-5.1); Sodium 131 mmol/L (137-145)
[2024-12-20 08:00] VITALS: BP 112/64; PULSE 61; RESP 12; TEMP 36.4; O2SAT 97
[2024-12-20] MEDS: FUROSEMIDE 40 MG/4 ML VIAL IV (09:58)
[2024-12-20] MEDS: SPIRONOLACTONE 25 MG TABLET 50 MG PO (09:58)
[2024-12-20] MEDS: THIAMINE 100 MG TABLET PO (09:58)
[2024-12-20] MEDS: SODIUM CHLORIDE 0.9% FLUSH 10 ML IV (09:59)
[2024-12-20] MEDS: PANTOPRAZOLE 40 MG VIAL IV (09:59)
[2024-12-20] MEDS: HYDROCODONE/ACET 5/325 TABLET 1 TAB PO (10:06)
--- NOTE | 2024-12-20 11:00 | PT.IPTN ---
Current Diagnoses Chronic or unspecified duodenal ulcer with perforation (12/13/24) Other specified symptoms and signs involving the digestive system and abdomen (12/13/24) Surgery Performed Operation Date: 12/13/24 19:00 Actual Procedures p Exploratory Laparotomy with omental patch of perforated ulcer, abdominal washout - Golden Issa MD Physical Therapy Treatment Note M2 PT-IP Current Condition Start: 12/15/24 13:11 Freq: NEEDED Status: Active Protocol: Document 12/16/24 11:40 AB (Rec: 12/16/24 13:49 AB [id number]) Physical Therapy Current Condition Current Condition Evaluation Date 12/16/24 Treatment Diagnosis perforated duodenal ulcer s/p ex-lap; difficulty in walking Onset Date 12/13/24 M3 PT-IP Subjective Start: 12/15/24 13:11 Freq: NEEDED Status: Active Protocol: Document 12/20/24 11:00 AB (Rec: 12/20/24 13:04 AB [id number]) Subjective Physical Therapy Visit Type Type Treatment Note Visit Start Time 11:00 Visit Stop Time 11:25 Number of BAG WASHER Visits 0 Physical Therapy Visit Comments Patient Comments agreeable to do PT M4 PT-IP Mobility and Gait Start: 12/15/24 13:11 Freq: NEEDED Status: Active Protocol: Document 12/20/24 11:00 AB (Rec: 12/20/24 13:04 AB [id number]) PT-Bed Mobility Assessment Rolling Type of Rolling Log Rolling Level of Assist Minimal Assistance Supine to Sit Supine to Sit Maximum Assistance Scooting Scooting to Edge of Maximum Assistance Bed PT-Transfer Assessment Sit to and From Stand Sit to and from Maximum Assistance,1 Person Assistance,Use of Upper Stand Extremities Equipment Transfer Assistive Gait Belt,Front Wheeled Walker Device Orthotic/Prosthetic No Devices or Brace: Transfers Transfer Destination Chair Transfer Technique Stand Step Pivot Transfer Ability Level of Assist Maximum Assistance,1 Person Assistance,Use of Upper Extremities Comments Mobility Comments pt in bed and agreeable to do PT. NAC in room also to assist. supine to sit log roll max A and max cues. max A for scooting to EOB. sit to stand max A and cues and step transfer to chair using FWW max A and cues. pt rested. agreed to ambulate. sit to stand from chair max A and max cues and ambulated ~ 7 ft using FWW max A and with chair follow. pt agreed to stay up on the chair. positioned pt on the chair. Pt then stated that she needs to use the toilet again. bedside commode positioned next to pt. sit to stand from chair max A and step transfer to commode max A and max cues using FWW. Left pt with NAC . Gait Assessment Gait Gait Assistance Maximum Assistance,1 Person Assist Required: Distance (Feet) 7 Able to Maintain Yes Weight Bearing Status During Gait Assistive Devices Assistive Device Gait Belt,Front Wheeled Walker Gait Deviations General Gait Pattern Decreased Stride Length,Decreased Feet Clearance,Step- to Gait Factors Limiting Gait Function Factors Limiting Decreased Activity Tolerance,Decreased Strength, Gait Function Difficulty Following Directions,Limited Range of Motion ,Poor Balance,Poor Safety Awareness M5 PT-IP Objective Assessments Start: 12/15/24 13:11 Freq: NEEDED Status: Active Protocol: Document 12/16/24 11:40 AB (Rec: 12/16/24 13:49 AB [id number]) Orientation Orientation/Cognition Level of Alertness Alert Orientation Name,Place,Situation Language Function Hard of Hearing Ability Safety Awareness Decreased Safety Awareness Memory Description Short Term Impaired Gross Range of Motion Lower Extremity ROM Assessment Within Functional Limits Strength Lower Extremity Strength Assessment Bilaterally Impaired Hip 3+/5 Knee +/5 Sensation Assessment Sensation Gross Sensation WNL Muscle Tone Muscle Tone WNL Yes M6 PT-IP Treatment Start: 12/15/24 13:11 Freq: NEEDED Status: Active Protocol: Document 12/20/24 11:00 AB (Rec: 12/20/24 13:04 AB [id number]) Physical Therapy Treatment Education Education Provided Safety M7 PT-IP Assessment and Plan Start: 12/15/24 13:11 Freq: NEEDED Status: Active Protocol: Document 12/20/24 11:00 AB (Rec: 12/20/24 13:04 AB [id number]) PT Summary Assessment and Plan Potential Rehabilitation Fair Potential Summary Impairments Pain,ROM,Strength,Balance,Coordination,Sensation,Tone, Cognition,Bed Mobility,Transfers,Gait,Activity Tolerance Progress Towards Slow Progress due to Medical Issues,Slow Progress due Goals to Activity Tolerance Assessment Summary pt improving slowly with mobility. pt able to ambulate today using FWW max A and max cues ~ 7 ft and with chair follow. pt will benefit from SNF rehab to improve overall strength and mobility independence. Goals Bed Mobility Goal Independent Transfer Goal Standby Assistance,Front Wheeled Walker Gait Goal Standby Assistance,Front Wheel Walker Gait Distance 100 Days to Meet Goals 10 Frequency of Treatment Frequency Of Once a Day Treatment Treatment Plan Physical Therapy Bed Mobility Training,Transfer Training,Gait Training, Treatment Plan Therapeutic Exercise,Balance Retraining,Post Op Education,Discharge Planning,Hot or Cold Pack, Neuromuscular Re-ed,Coordination Retraining,Manual Therapy Precautions Abdominal Surgery Log Roll,Lifting Restrictions,Gait Belt above Precautions Incisional Area Recommendations To Nursing Amount of Assist 2 Person Assist Needed Discharge Recommendations PT Discharge SNF Rehab Recommendations Transportation Needs Wheelchair/Cabulance at Discharge - PT assist 1-2
--- NOTE | 2024-12-20 11:06 | DIET.PN1 ---
Addendum entered by Vandana Reyes 12/20/24 12:48: Pt tolerating Ensure. Spoke with daughter and pt on softer-lower fiber diet until surgeon okays return to normal diet, provided handout on recc and not recc foods. Additionally, discussed increasing kcals and protein using Ensures with meals until able to tolerate majority % of meals and ideas of increasing kcals and protein when return to home/small freq meals Original Note: Dietary Progress Note Assessment: F/u Pt tolerating diet, but low %PO intakes, 25-50%. Ensure supplement added TID. Met with pt in room. Agreeable to Ensure, brought ensure and straw in room for pt to try when done with bathroom. Will f/u on tolerance. Pt to d/c this afternoon to rehab. Ht: 167.64 cm Wt: 79.3 kg BMI: 25.0 Last BM: 12/20/24 (12/20/24 10:32) MNA: Omega Score: 16 Diet: 12/20/24 Lunch Soft,Low Fiber (Low residue) Diet Diet Modifications: Oral nutrition supplement TID (Ensure/boost) Food Texture: Level 7 - Regular Liquid Consistency: Level 0 - Thin Nutrition Percent Meal Consumed 25% 12/18/24 18:44 Percent Meal Consumed 50% 12/18/24 13:02 Labs: RBC 2.68 X10^6/uL (4.0-5.2) L 12/19/24 04:27 Hgb 10.4 g/dL (12.0-16.0) L 12/19/24 04:27 Hct 29.8 % (36-46) L 12/19/24 04:27 Creatinine 0.43 mg/dL (0.52-1.04) L 12/20/24 05:00 Lactate 1.9 mmol/L (0.7-2.1) 12/13/24 16:15 Electronically Signed by: Vandana Reyes 12/20/24 11:06 Clinical Dietitian [address] [address]
[2024-12-20 12:00] VITALS: PULSE 62; RESP 20; TEMP 36.6; O2SAT 97
--- NOTE | 2024-12-20 12:35 | P.PN_ITS ---
Subjective Subjective Date Patient Seen: 12/20/24 Time Patient Seen: 12:35 Interval history: Doing well. Tolerating a diet. Exam Vital Signs (past 8 hours): - 12/20/24 05:00 12/20/24 08:00 Temperature 97 F L 97.6 F Pulse Rate 80 61 Respiratory Rate 18 12 Blood Pressure 102/57 L 112/64 Pulse Oximetry 95 97 Oxygen Flow Rate 0 0 Oxygen Delivery Method Room Air Oxygen Flow Rate 0 Narrative Exam Narrative: Both drains with scant serous output Objective Labs 12/19/24 04:27 12/20/24 05:00 Labs: Laboratory Results - last 24 hr 12/20/24 05:00 Sodium 131 L Potassium 3.7 Chloride 104 Carbon Dioxide 25 BUN 5 L Creatinine 0.43 L Estimated GFR > 60 BUN/Creatinine Ratio 11.6 Glucose 74 Calcium 7.2 L PFSH Social History household members: children alcohol intake: current Assessment & Plan Assessment and plan (1) Duodenal ulcer, perforated: Status: Acute Plan Drains have been removed Okay for discharge to SNF Follow up in 1-2 weeks for staple removal Time-Based Coding :: [TOTAL MINUTES] spent with patient and on the chart (including review of chart, obtaining history, exam, reviewing outside data, placing orders, documenting exam and treatment plan, and counseling patient) on [DATE]. Quality VTE Deep Vein Thrombosis/Pulmonary Embolism Present on Admission: No IH PROFEE Recruitment Coordinator Document charge(s): No
--- NOTE | 2024-12-20 14:20 | OT.IP.TRT ---
Current Diagnoses Chronic or unspecified duodenal ulcer with perforation (12/13/24) Other specified symptoms and signs involving the digestive system and abdomen (12/13/24) Surgery Performed Operation Date: 12/13/24 19:00 Actual Procedures p Exploratory Laparotomy with omental patch of perforated ulcer, abdominal washout - Golden Issa MD Occupational Therapy Treatment Note M2 OT-IP Current Condition Start: 12/16/24 14:17 Freq: Status: Active Protocol: Document 12/16/24 11:54 [facility] (Rec: 12/16/24 14:44 [facility] Desktop) Occupational Therapy Current Condition Current Condition Evaluation Date 12/16/24 Treatment Diagnosis Perforated Duodenal ulcer,s/p ex-lap Diagnosis Onset Date 12/13/24 Post Operative Precautions Abdominal Surgery Log Roll,Lifting Restrictions,Gait Belt above Precautions Incisional Area M3 OT- IP Subjective and Pain Start: 12/16/24 14:17 Freq: Status: Active Protocol: Document 12/20/24 15:36 [facility] (Rec: 12/20/24 15:44 [facility] Desktop) OT- Subjective Occupational Therapy Visit Type Type Treatment Note Visit Start Time 13:35 Visit Stop Time 14:20 Occupational Therapy Visit Comments Patient Comments Pt wanting to get back to bed and then needing to use the BSC. Pt's daughter present for the end of the session. Patient/Caregiver TO get better. Goals OT Pain Assessment Pain When Pain Assessed During Mobility Pain Present Pain Present Pain Reported Location Abdomen Pain Behaviors Facial Grimacing,Holding Area M4 OT- IP ADL's Start: 12/16/24 14:17 Freq: Status: Active Protocol: Document 12/20/24 15:36 [facility] (Rec: 12/20/24 15:44 [facility] Desktop) OT FOV-Auzs-[id number] Comments OT Self-Feeding Not observed. Comments OT ADL-Grooming Comments OT Grooming Comments NOt observed. OT ADL-Oral Care Comments Oral Care Comments Not observed. OT ADL-Dressing General Eval Lower Body Dressing Moderate Assistance Ability Comments OT Dressing Comments Able to use patient assistant and CHRISTI to help tread her feet into the brief. Assist for brief management needs over her hips. OT ADL-Toileting General Evaluation Toileting Ability Maximum Assistance Areas Needing Manage Clothing,Perform Perineal Hygiene Assistance Comments OT Toileting Pt needing assist to wipe after BM for completeness and Comments for clothing management needs. OT ADL-Bathing Comments OT Bathing Comments Use of rolling shower chair more appropriate at this time due to decreased balance. M5 OT- IP IADL's Start: 12/16/24 14:17 Freq: Status: Active Protocol: Document 12/16/24 11:54 [facility] (Rec: 12/16/24 14:44 [facility] Desktop) OT-Instrumental Activities of Daily Living Deficits IADL Deficits Deficits Identified Home Safety Awareness Home Safety Comments Pt has flat affect and at this time unsure of her goals or what she wants to do. Medication Management Medication Pt states did not take any medications prior. Management Comments Money Management Money Management Pt would benefit from assist. Comments Meal Preparation Meal Preparation Pt will benefit from assist. Comments Senior Cyber Security Analyst Senior Cyber Security Analyst Pt will benefit from assist. Comments Driving Driving Caregiver Provides Assist M6 OT- IP Functional Cognition Start: 12/16/24 14:17 Freq: Status: Active Protocol: Document 12/20/24 15:36 [facility] (Rec: 12/20/24 15:44 [facility] Desktop) Cognitive Factors Limiting Selfcare Function Cognitive Comments Cognitive Assessment Pt needing cues to push up from surfaces when coming to Comments stand and keep her feet from sliding forwards. M7 OT- IP Mobility and Balance Start: 12/16/24 14:17 Freq: Status: Active Protocol: Document 12/20/24 15:36 [facility] (Rec: 12/20/24 15:44 [facility] Desktop) OT-Transfer Assessment Sit to and From Stand Sit to and from Minimal Assistance,Moderate Assistance Stand Transfers Transfer Ability Moderate Assistance,1 Person Assistance Technique Transfer Destination Bed,Chair,Toilet Transfer Technique Stand Step Pivot Devices Transfer Assistive Gait Belt,Front Wheeled Walker Devices Comments Mobility Comments MODA to stand and to help block her feet from sliding forwards. Once on her feet CHRISTI with fww assist for balance and to help move the FWW. As pt tires needing MODA for her balance. OT- Balance Assessment Sitting Balance and Reactions Static Sitting Good Balance Ability Dynamic Sitting Fair Balance Ability Standing Balance and Reactions Static Standing Fair Balance Ability Dynamic Standing Poor Balance Ability M8 OT- IP Objective Assessments Start: 12/16/24 14:17 Freq: Status: Active Protocol: Document 12/16/24 11:54 [facility] (Rec: 12/16/24 14:44 [facility] Desktop) OT Gross Range of Motion Upper Extremity Range of Motion ROM Impairments Decreased at end ROM due to abdominal pain OT Strength Comments Strength Comments BUE hand at least 4-/5, NT shoulders due to abdominal sx. OT- Coordination Assessment Upper Extremity Finger to Nose Test Left UE Impaired Comments Coordination Pt very slow with diadochokinesis. Pt a bit shaky with Comments her right hand when trying to feed herself. M9 OT- IP Assessment and Plan Start: 12/16/24 14:17 Freq: Status: Active Protocol: Document 12/20/24 15:36 [facility] (Rec: 12/20/24 15:44 [facility] Desktop) OT Summary Assessment and Plan Potential Rehabilitation Good Potential Analytic Complexity Moderate at Evaluation Summary OT Impairments Pain,Strength,Balance,Coordination,Functional Cognition ,Functional Mobility,Self-Feeding,Grooming,Dressing, Toileting,Bathing,Toilet Transfers,Shower Transfers, Activity Tolerance Progress Towards Slow Progress due to Pain,Slow Progress due to Medical Goals Issues,Slow Progress due to Activity Tolerance,Slow Progress due to Cognition Assessment Summary Pt still needing encouragement to get up to use the BSC versus use of bed bolanos. Pt able to practice use of patient assistant for brief management needs for toileting. Able to go over possible equipment needs with her daughter LB dressing equipment, shower chair, grab bar/transfer pole, bed rail, and FWW. Pt would benefit from home eval prior to going home while at SNF. Able to give pt and daughter information of fall prevention and energy conservation. Goals Self-Feeding Goal Independent Grooming Goal Independent Dressing Goal Independent Toileting Goal Independent Bathing Goal Independent Toilet Transfer Goal Independent Shower Transfer Goal Standby Assistance Days to Meet Goals 25 Frequency of Treatment Other frequency 5x/week Treatment Plan OT Treatment Plan ADL Training,Functional Cognition Training,Functional Mobility,Patient/Family Education,Discharge Planning Discharge Recommendations OT Discharge SNF Rehab Recommendations Transportation Needs Wheelchair/Cabulance at Discharge
--- NOTE | 2024-12-20 15:19 | CM.DPNOTE ---
DCP note AUTOMOTIVE TECHNICIAN INSTRUCTOR reviewed EMR per provider, pt cleared to dc to SNF today, can f/u in OP setting with psychiatry. per Wilton Valadez agrees for urgent f/u but does not wish to see pt himself due to already seeing pt's dtr for care. will have a different provider in their facility f/u with pt. AUTOMOTIVE TECHNICIAN INSTRUCTOR spoke with Maci, reviewed current case. okay with f/u with pt at [facility] as needed. Per Corrina at [facility], authorized SNF for pt. auth number [id number] AUTOMOTIVE TECHNICIAN INSTRUCTOR met with pt and dtr in room. reviewed plan. in agreement. AUTOMOTIVE TECHNICIAN INSTRUCTOR answered questions to best of ability. dtr and pt asked this AUTOMOTIVE TECHNICIAN INSTRUCTOR connect with [facility] so they can f/u with [facility] to coordinate the referral at dc from SNF to home. per Dtr pt has a SOC PCP appt with Dr. Alfaro 01/03 already arranged. per Bri at can accept pt today at 3pm. AUTOMOTIVE TECHNICIAN INSTRUCTOR completed PASRR. sent PASRR/meds/script to Bri at . placed in red folder. updated MANAGER OF CONSTRUCTION/RN. gave RN report number. AUTOMOTIVE TECHNICIAN INSTRUCTOR spoke with jayna from [facility]. updated on case. will f/u with family and dtr and staff at [facility]. AUTOMOTIVE TECHNICIAN INSTRUCTOR lvm with [facility] to let them know pt was discharging today P: dc today to at 3pm. CM team will continue to follow as needed for DCP coordination JOE Dalal
--- NOTE | 2024-12-20 16:00 | PC.NURSE ---
Pt discharged to [facility] rehab at 1505, escorted off floor in wheelchair accompanied by facility designee. IV and PICC line removed, tele d/c'd, discharge teaching included in packet for facility. Report called to Angelica ([phone]) at 1600. All belongings left with patient.
--- NOTE | 2024-12-22 14:15 | P.DS_ITS ---
History of Present Illness History of Present Illness Chief complaint: Abdominal pain Narrative: Arianna is a 64-year-old woman who presented to the emergency department due to abdominal pain since last . She has had bowel movements since then. A CT scan showed diffuse free fluid and free air and thickening of the distal stomach and duodenum. She has never had any abdominal surgery before. Discharge Providers Provider Date of admission: 12/13/24 17:28 Discharge Date: 12/20/24 Primary care physician: Kailyn Sepulveda DO Consults: 12/13/24 18:14 Consult to [facility] - Employment Services Director Routine Comment: Employment Services Director Consult needed for:: Other reason (Comment) Comment: Patient needs assistance with dealing with the of her spouse 8 years ago. SHe will also need help getting some DME for home. 12/14/24 12:41 Consult to Hospitalist Service Routine Comment: Consulting Provider: Agustin Duncan Reason for consultation: polysubstance abuse 12/15/24 09:38 Consult to Physical Therapy Evaluate & Treat Comment: Physician Instructions: Evaluate and Treat 12/16/24 11:54 Consult to Occupational Therapy Evaluate & Treat Comment: Physician Instructions: Evaluate and treat 12/19/24 07:33 Consult to Physical Therapy Evaluate & Treat Comment: Physician Instructions: Evaluate and Treat 12/20/24 09:19 Consult to Physician Routine Comment: Consulting Provider: Gamaliel Núñez Reason for consultation: needs psych Has provider been notified: Yes Discharge provider: Golden Issa MD Summary Hospital Course Discharge Diagnosis: Perforated duodenal ulcer Hospital Course: The patient underwent emergency exploratory laparotomy with omental patch of a perforated duodenal ulcer. See the operative note for details. She recovered on the floor and her diet was advanced as tolerated. Drains were removed and she was discharged to a [facility] facility. Exam Vital Signs (past 8 hours): Oxygen Delivery Method Room Air Oxygen Flow Rate 0 Objective Labs 12/19/24 04:27 12/20/24 05:00 COUNTS INCLUDE 234 BEDS AT THE [facility] Social History household members: children alcohol intake: current Discharge Plan Discharge Plan Patient Disposition: SNF Discharge orders & Medications Prescriptions: New spironolactone 25 mg Tablet 50 mg PO DAILY Qty: 30 0RF thiamine mononitrate (vit B1) 100 mg Tablet 100 mg PO DAILY Qty: 30 0RF Vital 1.0 Cyrus 0.04 gram- 1 kcal/mL liquid 1 ea PO QID 28 Days Qty: 8000 0RF Continued multivitamin [Daily Multi-Vitamin] Tablet 1 tab PO DAILY acetaminophen 500 mg capsule 500 mg PO Q6H PRN (Reason: pain) Follow up/Referrals: Kailyn Sepulveda DO [Primary Care Provider, [facility]] Diet/Activity/Treatments Diet: Diet as Tolerated Diet comment: One box (237 mL) of Vital 1.0 q.i.d. Visit Report/Discharge Packet Stand Alone Forms: Patient Portal/API Discharge Data Primary Care Provider: Kailyn Sepulveda Quality VTE Deep Vein Thrombosis/Pulmonary Embolism Present on Admission: No IH PROFEE Charge Codes Discharge inpatient/observation: 16141
== END 2024-12-20 16:06 | DRG 326 ==
LOC: ED 17:26 → AC 17:29 → ICU 21:24 → AC 12-17 02:14
PROVIDERS: Internal Medicine; Internal Medicine Critical Care Medicine; Admitting Provider Surgery; Emergency Provider Emergency Medicine; PCP Family Medicine; Referring Provider Emergency Medicine; Visit Provider Surgery
PROC: 0DQ90ZZ Repair Duodenum, Open Approach (ICD-10-PCS; CPT 49000; principal; 2024-12-13 19:00)
DX: K26.1 Acute duodenal ulcer with perforation (principal); E43 Unspecified severe protein-calorie malnutrition; T81.19XA Other postprocedural shock, initial encounter; N17.9 Acute kidney failure, unspecified; D62 Acute posthemorrhagic anemia; D68.9 Coagulation defect, unspecified; K76.6 Portal hypertension; I10 Essential (primary) hypertension; F32.A Depression, unspecified; F10.20 Alcohol dependence, uncomplicated; E80.6 Other disorders of bilirubin metabolism; D69.6 Thrombocytopenia, unspecified; K70.30 Alcoholic cirrhosis of liver without ascites; Y90.0 Blood alcohol level of less than 20 mg/100 ml; Z68.28 Body mass index [BMI] 28.0-28.9, adult
CPT/HCPCS: 36415; 36430; 36569; 36592; 74177; 80048; 80053; 80320; 82962; 83605; 83690; 83735; 84132; 85007; 85025; 85610; 86850; 86900; 86901; 87040; 87797; 93005; 96365; 96366; 97129; 97162; 97166; 97530; 97535; 99284; P9016; J0131; J0330; J0666; J1100; J1171; J1642; J1650; J1938; J2248; J2405; J2470; J2543; J2704; J3010; J3475; J3490; P9035; P9045; Q9967

== ENCOUNTER → 2025-01-25 14:09 | Outpatient (CLI) | payer OTHER, SELFPAY ==
[2024-12-13 21:29] VITALS: BMI 25.0
[2025-01-25 15:13] LABS: Add Manual Diff / Slide Review NO; Hematocrit 26.3 % (36-46); Hemoglobin 8.9 g/dL (12.0-16.0); Lymphocytes Absolute Auto 1200 /uL (1100-4500); Mean Corpuscular HGB Conc 33.9 % (30-36); Mean Corpuscular Hemoglobin 35.0 PG (26-34); Mean Corpuscular Volume 103.2 fL (80-100); Platelet Count 152 X10^3/uL (150-400)
[2025-01-25 15:31] LABS: Alanine Aminotransferase 16 IU/L (<35); Albumin 2.1 g/dL (3.5-5.0); Albumin Globulin Ratio 0.6 (1.0-2.8); Alkaline Phosphatase 117 U/L (38-126); Blood Urea Nitrogen 7 mg/dL (7-17); Calcium 7.9 mg/dL (8.4-10.2); Carbon Dioxide 24 mmol/L (22-32); Chloride 104 mmol/L (98-107); Estimated Glomerular Filt Rate > 60 mL/min (>60); Globulin 3.5 g/dL (1.7-4.1); Glucose 116 mg/dL (70-99); HEMOLYSIS < 15 (0-50); Potassium 4.1 mmol/L (3.4-5.1); Sodium 134 mmol/L (137-145); Total Protein 5.6 g/dL (6.3-8.2)
[2025-01-26 15:40] LABS: Hep C Virus Ab w/Reflex Quant NEGATIVE s/c (NEGATIVE)
[2025-01-27 01:07] LABS: Hepatitis B Core AB w/Reflex Negative (Negative)
== END ==
PROVIDERS: PCP Family Medicine; Referring Provider Physician Assistant; Visit Provider Physician Assistant
DX: R60.0 Localized edema (principal); F10.20 Alcohol dependence, uncomplicated
CPT/HCPCS: 36415; 80053; 85025; 86704; 86803

== ENCOUNTER → 2025-01-26 13:27 | Outpatient (CLI) | payer OTHER, SELFPAY ==
[2024-12-13 21:29] VITALS: BMI 25.0
--- NOTE | 2025-01-26 13:28 | DI.US.S_ITS ---
PROCEDURE: US PERIPH VENOUS LOW EXTREM BI INDICATIONS: b/l leg swelling TECHNIQUE: Real-time imaging, as well as color and pulse Doppler interrogation, were performed of the deep veins of both legs from the inguinal ligament to the popliteal fossa, with documentation of the visualized calf veins. COMPARISON: None. FINDINGS: Right: The common femoral, femoral, popliteal, and the visualized calf veins are normally compressible, and free of intraluminal thrombus. Color and pulse Doppler demonstrate normal phasic intravascular flow. There is normal augmentation response to distal compression maneuver. Left: On the left, there is a small amount of deep venous thrombosis seen within the calf veins within the more posterior of the peroneal veins. This is noncompressible, with partially occlusive flow. No more proximal deep venous thrombosis can be seen. Overall scan quality is limited by soft tissue edema. IMPRESSION: There is a small amount of calf deep venous thrombosis seen on the left, with not completely occlusive thrombus within a left peroneal vein. Dictated by: Art Cee M.D. on 01/26/2025 at 13:50 Approved by: Art Cee M.D. on 01/26/2025 at 13:51
== END ==
LOC: US 13:27
PROVIDERS: PCP Family Medicine; Referring Provider Physician Assistant; Visit Provider Physician Assistant
DX: I82.452 Acute embolism and thrombosis of left peroneal vein (principal); R60.0 Localized edema
CPT/HCPCS: 93970

== ENCOUNTER → 2025-02-02 09:24 | Outpatient (CLI) | payer OTHER, SELFPAY ==
[2024-12-13 21:29] VITALS: BMI 25.0
[2025-02-02 10:17] LABS: Add Manual Diff / Slide Review NO; Hematocrit 24.3 % (36-46); Hemoglobin 8.2 g/dL (12.0-16.0); Lymphocytes Absolute Auto 900 /uL (1100-4500); Mean Corpuscular HGB Conc 33.6 % (30-36); Mean Corpuscular Hemoglobin 34.0 PG (26-34); Mean Corpuscular Volume 101.3 fL (80-100); Platelet Count 117 X10^3/uL (150-400)
== END ==
PROVIDERS: Physician Assistant; PCP Family Medicine; Referring Provider Family Medicine; Visit Provider Family Medicine
DX: D64.9 Anemia, unspecified (principal)
CPT/HCPCS: 36415; 85025

== ENCOUNTER → 2025-05-01 06:43 | Outpatient (CLI) | payer OTHER, SELFPAY ==
[2024-12-13 21:29] VITALS: BMI 25.0
--- NOTE | 2025-05-01 06:45 | DI.US.S_ITS ---
PROCEDURE: US PERIPH VENOUS LOW EXTREM LT INDICATIONS: DVT f/u - repeat in Dec to confirm resolution TECHNIQUE: Real-time imaging, as well as color and pulse Doppler interrogation, were performed of the lower extremity deep veins from the inguinal ligament to the popliteal fossa, with documentation of the visualized calf veins. COMPARISON: None. FINDINGS: The common femoral, femoral, popliteal, and the visualized calf veins are normally compressible, and free of intraluminal thrombus. Color and pulse Doppler demonstrate normal phasic intraluminal flow. There is normal augmentation response to distal compression maneuver. IMPRESSION: No findings of lower extremity deep venous thrombosis. Dictated by: Brina Gonzalez M.D. on 05/01/2025 at 15:19 Approved by: Brina Gonzalez M.D. on 05/01/2025 at 15:19
== END ==
LOC: US 06:44
PROVIDERS: PCP Family Medicine; Referring Provider Family Medicine; Visit Provider Internal Medicine Gastroenterology
DX: K76.9 Liver disease, unspecified (principal); R77.2 Abnormality of alphafetoprotein; I82.409 Acute embolism and thrombosis of unspecified deep veins of unspecified lower extremity
CPT/HCPCS: 93971

== ENCOUNTER → 2025-05-01 06:46 | Outpatient (CLI) | payer OTHER, SELFPAY ==
[2024-12-13 21:29] VITALS: BMI 25.0
--- NOTE | 2025-05-01 06:47 | DI.US.S_ITS ---
PROCEDURE: US ABDOMEN COMPLETE INDICATIONS: LIVER DISEASE TECHNIQUE: Real-time scanning was performed of the abdominal and retroperitoneal organs, with image documentation. COMPARISON: [facility], US, ABDOMEN COMPLETE, 09/04/2016, 10:17. FINDINGS: Liver: Liver parenchyma is hyperechoic and homogeneous. No mass, cirrhosis or intrahepatic biliary dilation. Right liver measures 13.4 cm in length. Gallbladder: Gallstones and sludge. No gallbladder wall thickening previous small amount of pericholecystic fluid. Negative sonographic Chapman sign. Biliary ducts: Intrahepatic bile ducts are non-dilated. Extrahepatic bile duct caliber measures 10 mm. Normal is 6-7 mm or less in diameter, or 10 mm or less post-cholecystectomy. Pancreas: Visualized portions of the pancreas are sonographically normal. Spleen: Spleen is normal in size and homogeneous in echotexture. Kidneys: Kidneys are normal in size and echotexture. Right kidney measures 9.8 cm long; left kidney measures 10.8 cm long. No hydronephrosis or nephrolithiasis. No solid masses. Aorta: Visualized aorta is normal in caliber at less than 3 cm. Iliacs: Proximal common iliac arteries are normal in caliber at less than 2.5 cm. IVC: Intrahepatic inferior vena cava is patent. Miscellaneous: Small volume ascites. IMPRESSION: Mildly hyperechoic and heterogeneous liver. No mass or intrahepatic biliary dilation. Cholelithiasis without secondary signs of acute cholecystitis. Mildly dilated common bile duct. Correlate for abnormal LFTs. If present, patient may benefit from MRCP evaluation. Dictated by: Mariah Ramirez M.D. on 05/01/2025 at 13:41 Approved by: Mariah Ramirez M.D. on 05/01/2025 at 13:43
== END ==
LOC: US 06:46
PROVIDERS: PCP Family Medicine; Referring Provider Family Medicine; Visit Provider Physician Assistant
DX: K76.9 Liver disease, unspecified (principal); R77.2 Abnormality of alphafetoprotein; I82.409 Acute embolism and thrombosis of unspecified deep veins of unspecified lower extremity; K80.20 Calculus of gallbladder without cholecystitis without obstruction; K83.8 Other specified diseases of biliary tract; R18.8 Other ascites
CPT/HCPCS: 76700; 93971

== ENCOUNTER → 2025-05-12 12:44 | Outpatient (CLI) | payer OTHER, SELFPAY ==
[2024-12-13 21:29] VITALS: BMI 25.0
[2025-05-15 18:39] LABS: ALT (SGPT) 16 IU/L (0-40); Bilirubin,Total 0.3 mg/dL (0.0-1.2); GGT 18 IU/L (0-60); Necroinflammat Act Grade A0-No activity (.); Necroinflammat Act Score 0.05 (0.00-0.17)
== END ==
PROVIDERS: PCP Family Medicine; Referring Provider Internal Medicine Gastroenterology; Visit Provider Internal Medicine Gastroenterology
DX: K76.9 Liver disease, unspecified (principal); R77.2 Abnormality of alphafetoprotein
CPT/HCPCS: 36415; 81596